=== PATIENT | female | born 1935 | race Caucasian/White ===

== ENCOUNTER 2020-08-03 09:04 | Emergency (ER) | payer MEDICARE, OTHER, SELFPAY ==
--- NOTE | ~2020-08-03 | XR_ITS ---
EXAMINATION: XR ribs LT 2V w CXR 2V INDICATION: Left rib pain after fall TECHNIQUE: AP and lateral views of the chest and 3 views of the left ribs were obtained. COMPARISON: 06/27/2016 FINDINGS: There are acute fractures at the anterolateral aspect of the left sixth through 10th ribs. The lungs are free of acute opacities. There is no pleural effusion or pneumothorax. Calcified athero sclerosis is noted. The heart size is normal. There is thoracolumbar dextroscoliosis. Cranial migrati on of the right humeral head with respect to the glenoid is consistent with chronic rotator cuff tear . There are compression deformities in the midthoracic spine which appear chronic. IMPRESSION: 1. Fractures of the left sixth through 10th ribs. No acute cardiopulmonary abnormality. Reviewed, dictated and finalized at location A. IMPRESSION: 1. Fractures of the left sixth through 10th ribs. No acute cardiopulmonary abno rmality.
[2020-08-03 09:03] VITALS: BP 206/88; PULSE 81; RESP 14; TEMP 37.1; O2SAT 97
[2020-08-03] MEDS: SODIUM CHLORIDE 0.9% IV 500 ML 999 ML IV CONT (10:50)
--- NOTE | 2020-08-03 11:19 | ED.GENADULT ---
HPI - General Adult General Chief complaint: Fall Stated complaint: L RIB/FLANK PAIN S/P FALL Time Seen by Provider: 08/03/20 09:52 Source: patient Mode of arrival: ambulatory Limitations: no limitations History of Present Illness HPI narrative: Patient is an 84-year-old female who presents to emergency department for evaluation of injuries related to having fallen and injured the left ribs was sitting on a bench and lost her balance striking the left ribs where she now has pain and bruising this occurred at midnight last night patient took Tylenol with some relief presents today noting that she has had increasing pain patient denies any other illness or complaints or injuries and is in no distress upon arrival patient lives at home by herself Related Data Home Medications Medication Instructions Recorded Confirmed aspirin 81 mg chewable tablet 81 mg PO DAILY 11/03/19 Allergies Allergy/AdvReac Type Severity Reaction Status Date / Time chlorthalidone Allergy Unknown Unknown Verified 05/11/20 11:06 hydrochlorothiazide Allergy Unknown Unknown Verified 05/11/20 11:06 triamterene Allergy Unknown Unknown Verified 05/11/20 11:06 No Known Allergies Allergy Unverified 05/11/20 11:06 Review of Systems Review of Systems: All systems reviewed & are unremarkable except as noted in HPI and below PMFSH Past Medical History Medical History Dysuria HSV-2 (herpes simplex virus 2) infection Vaginal irritation Surgical History Surgical History History of appendectomy History of cataract History of hysterectomy Status post knee replacement Family History Family History Mother Hypertension Cerebrovascular accident Family history of diabetes mellitus in first degree relative Patient's mother is Sibling Asthma Family history of malignant neoplasm Family history of diabetes mellitus in first degree relative Patient's brother is Family history of kidney disease Father Family history of diabetes mellitus in first degree relative Patient's father is Hypertension Family history of coronary artery disease Other Diabetes mellitus Family history of arthritis Social History Social History Smoking status: Former smoker Second hand tobacco smoke exposure: No Smoking end date: 10/21/12 Alcohol intake: never Substance use: never Substance use type: does not use Gender identity (if verbalized by the patient): Female Exam Narrative: Exam Narrative: GENERAL: Well-appearing, well-nourished, and in no acute distress. HEAD: Normocephalic, atraumatic. EYES: PERRLA and EOMI. ENT: Nares clear, no rhinorrhea or epistaxis. Mucous membranes moist. Oropharynx without tonsillar hypertrophy exudate or other lesions. NECK: Supple. No adenopathy or masses. CHEST: Clear to auscultation. No respiratory distress. No wheezes rales or rhonchi. 2 small bruises on the left lateral lower ribs with tenderness at this location HEART: Regular rate and rhythm. No murmur heard. Normal peripheral pulses. ABDOMEN: Soft, nontender, nondistended EXTREMITIES: Normal range of motion. No edema. No cervical thoracic or lumbar tenderness SKIN: Warm, dry, no rash. NEURO: No focal deficits. Alert and oriented x3. Cranial nerves II through XII grossly intact PSYCH: Normal mood and affect. Course Course Emergency Course: Patient in the room in no distress aware of his findings treatment plan and diagnosis agreeing to follow-up as directed felt appropriate for outpatient reevaluation normal vital signs was given incentive spirometer Vital Signs Vital signs: Vital Signs Temperature 98.8 F 08/03/20 09:03 Pulse Rate 81 08/03/20 09:03 Respiratory Rate 14 08/03/20 09:03 Blood P
--- NOTE | 2020-08-03 12:41 | PC.NURSE ---
RN spoke with RT and Incentive Spirometer teaching has been completed.
[2020-08-03 13:47] VITALS: BP 160/75; PULSE 74; RESP 18; O2SAT 98
== END 2020-08-03 13:49 | disposition home or self-care (01) ==
PROVIDERS: Emergency Provider Emergency Medicine; PCP Family Medicine
DX: S22.42XA Multiple fractures of ribs, left side, initial encounter for closed fracture (principal); Z87.891 Personal history of nicotine dependence; W17.89XA Other fall from one level to another, initial encounter; Z96.659 Presence of unspecified artificial knee joint; Z98.49 Cataract extraction status, unspecified eye
CPT/HCPCS: 71046; 71100; 99283; J0131; J7040

== ENCOUNTER 2021-07-01 16:39 | Emergency (ER) | payer MEDICARE, OTHER, SELFPAY ==
[2021-07-01 17:11] VITALS: BP 147/60; PULSE 67; RESP 16; TEMP 36.4; O2SAT 97
--- NOTE | 2021-07-01 18:00 | ED.WOUNDLAC ---
HPI - Wound/Laceration General Chief Complaint: Wound/Laceration Stated Complaint: redness left arm Time Seen by Provider: 07/01/21 18:00 Source: patient, family, RN notes reviewed and old records reviewed Mode of arrival: ambulatory Limitations: no limitations History of Present Illness HPI narrative: 85 year old female who presents to [facility] with complaints of redness to her anterior upper arm with tenderness and swelling and warmth which measures 8cm by9cm.Patient is concerned because she got a flu shot to her left deltoid area above area of erythema yesterday. Patient reports no known fevers, chills or sweats, has been applying ice to area for comfort measures. Patient has no difficulty with her swallowing or any shorteness of breath. Related Data Home Medications Medication Instructions Recorded Confirmed aspirin 81 mg chewable tablet 81 mg PO DAILY 11/03/19 11/02/20 isosorbide mononitrate 30 mg 15 mg PO DAILY tablet 08/04/20 11/02/20 tablet,extended release 24 hr diclofenac sodium [Voltaren TOPICAL 07/01/21 Arthritis Pain] Allergies Allergy/AdvReac Type Severity Reaction Status Date / Time No Known Allergies Allergy Unverified 05/01/21 11:20 Review of Systems Review of Systems: CONSTITUTIONAL: Denies fever, chills, or sweats. EYES: Denies visual changes, redness, or discharge. ENT: Denies rhinorrhea, congestion, sore throat, or otalgia. CARDIOVASCULAR: Denies chest pain, palpitations, or edema. RESPIRATORY: Denies cough or dyspnea. GASTROINTESTINAL: Denies abdominal pain, nausea, vomiting, or diarrhea. GENITOURINARY: Denies dysuria or hematuria. SKIN: positive for redness , swelling and discomfort to left upper arm [id number] area MUSCULOSKELETAL: Denies back pain, joint pain, or myalgia. NEUROLOGIC: Denies headache, numbness, or weakness. PSYCHIATRIC: Denies anxiety or depression. All systems reviewed & are unremarkable except as noted in HPI and below PMFSH Past Medical History Medical History (Updated 07/08/21 @ 07:29 by Courtney Logan NP) Chronic GERD Dysuria HLD (hyperlipidemia) HSV-2 (herpes simplex virus 2) infection Hypertensive heart disease without congestive heart failure Osteoporosis Vaginal irritation Surgical History Surgical History History of appendectomy History of cataract History of hysterectomy Status post knee replacement Family History Family History Mother Hypertension Cerebrovascular accident Family history of diabetes mellitus in first degree relative Patient's mother is Sibling Asthma Family history of malignant neoplasm Family history of diabetes mellitus in first degree relative Patient's brother is Family history of kidney disease Father Family history of diabetes mellitus in first degree relative Patient's father is Hypertension Family history of coronary artery disease Other Diabetes mellitus Family history of arthritis Social History Social History Smoking packs per day: 0.75 Smoking cigarettes per day: 15.0 Years smoked: 40 Smoking pack-years: 30.00 Smoking status: Never smoker Tobacco type: cigarettes Second hand tobacco smoke exposure: No Smoking end date: 10/21/12 Alcohol intake: never Substance use: never Substance use type: does not use Gender identity (if verbalized by the patient): Female Comments At time of signature, agree with nursing past medical, surgical, social and family history. There is no relevant family history pertinent to the presenting complaint Exam Narrative: GENERAL: Well-appearing, well-nourished, and in no acute distress. HEAD: Normocephalic, atraumatic. EYES: PERRLA and EOMI. ENT: Nares clear, no rhinorrhea or epistaxis. Mucous membranes moist.TM's normal with good light reflex, t
== END 2021-07-01 18:21 | disposition home or self-care (01) ==
PROVIDERS: Emergency Provider Registered Nurse; PCP Family Medicine
DX: L03.114 Cellulitis of left upper limb (principal); E78.5 Hyperlipidemia, unspecified; I11.0 Hypertensive heart disease with heart failure; I50.9 Heart failure, unspecified; I25.10 Atherosclerotic heart disease of native coronary artery without angina pectoris; F17.210 Nicotine dependence, cigarettes, uncomplicated
CPT/HCPCS: 99213; G0463

== ENCOUNTER 2022-04-03 09:15 | Emergency (ER) | payer MEDICARE, OTHER, SELFPAY ==
[2022-04-03] VITALS (13 sets, daily range): BP systolic 143–176; BP diastolic 57–77; PULSE 79; RESP 18; TEMP 36.2; O2SAT 95–98
--- NOTE | ~2022-04-03 | CT_ITS ---
EXAMINATION: CT brain wo con DATE: 04/03/2022 10:12 INDICATION: Head injury. TECHNIQUE: Computed tomography (CT) of the head was performed without intravenous contrast. The mA wa s adjusted according to patient size. Iterative reconstruction technique was employed. The dose-lengt h product was 605.33 mGy-cm. COMPARISON: None FINDINGS: There are scattered areas of low attenuation in the cerebral white matter. There is an old lacunar infarct in the right lentiform nucleus. There is no intracranial hemorrhage, acute infarction , or abnormal intracranial mass lesion. The ventricles are normal in size. There is an old blowout fr acture of medial wall of left orbit. There are likely changes of ocular lens replacement surgeries. T here is near complete opacification of left sphenoid sinus with thickening and sclerosis of the sinus suggs, consistent with chronic sinusitis. There is mild mucosal thickening in the other paranasal si nuses. There is a trace left mastoid effusion. IMPRESSION: 1. 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 2. Moderate nonspecific cerebral white matter disease, which likely represents chronic small vessel i schemic disease. 3. Chronic sinusitis. Reviewed, dictated and finalized at location B. IMPRESSION: 1. 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 2. Moderate nonspecific cerebral white matter disease, which likely represents chronic small vessel ischemic disease. 3. Chronic sinusitis.
--- NOTE | ~2022-04-03 | CT_ITS ---
EXAMINATION: CT cervical spine wo con DATE: 04/03/2022 10:13 INDICATION: Head injury. TECHNIQUE: Computed tomography (CT) of the cervical spine was performed without intravenous contrast. Automated exposure control and iterative reconstruction technique were employed. The dose-length pro duct was 151.69 mGy-cm. COMPARISON: None FINDINGS: There is 19 degrees dextroscoliosis of cervicothoracic spine. There is 3 mm anterolisthesis of C3 on C4 and C7 on T1. Vertebral body heights are normal. There is moderately decreased disc heig ht at C3-C4 and severely decreased disc height from C4-C5 through C6-C7. The following disc levels ar e specifically discussed: C2-C3: There is mild bilateral uncovertebral joint osteoarthritis. There is mild right and moderate l eft facet joint osteoarthritis. There is no neural foraminal stenosis. There is mild central canal st enosis. C3-C4: There is mild right and moderate left uncovertebral joint osteoarthritis. There is severe bila teral facet joint osteoarthritis. There is mild left neural foraminal stenosis. There is mild central canal stenosis. C4-C5: There is severe bilateral uncovertebral joint osteoarthritis. There is moderate right and mayra re left facet joint osteoarthritis. There is mild bilateral neural foraminal stenosis. There is mild central canal stenosis. C5-C6: There is severe bilateral uncovertebral joint osteoarthritis. There is moderate right and mayra re left facet joint osteoarthritis. There is mild bilateral neural foraminal stenosis. There is mild central canal stenosis. C6-C7: There is moderate right and severe left uncovertebral joint osteoarthritis. There is moderate right and severe left facet joint osteoarthritis. There is mild bilateral neural foraminal stenosis. There is mild central canal stenosis. C7-T1: There is no uncovertebral joint osteoarthritis. There is severe bilateral facet joint osteoart hritis. There is mild bilateral neural foraminal stenosis. There is no central canal stenosis. IMPRESSION: 1. No fracture. 2. Severe cervical spondylosis. Reviewed, dictated and finalized at location B.
--- NOTE | 2022-04-03 09:34 | PC.NURSE ---
EDP at bedside to assess pt.
--- NOTE | 2022-04-03 09:37 | ED.FALL ---
HPI - Fall General Chief Complaint: Fall Stated Complaint: fall Time Seen by Provider: 04/03/22 09:22 History of Present Illness HPI Narrative: Patient is an 86-year-old female with history of CAD, osteoporosis, here via EMS for evaluation after a fall this morning. Patient states that she was in her bathroom and attempted to step on a bug with her foot, when she missed, lost balance, and fell backwards. Patient did not lose consciousness, she was able to get up off the floor without assistance. She called an ambulance because she had large amount of blood on the floor. Her only complaint currently is some soreness to the back of her head, and she denies any chest pain, shortness of breath, dizziness, headache, visual changes, joint pain. She has been walking since the fall. She was in her usual state of health this morning. Related Data Home Medications Medication Instructions Recorded Confirmed aspirin 81 mg chewable tablet 81 mg PO DAILY 11/03/19 10/30/21 isosorbide mononitrate 30 mg 15 mg PO DAILY 08/04/20 10/30/21 tablet,extended release 24 hr diclofenac sodium 1 % topical gel topical 07/01/21 10/30/21 (Voltaren Arthritis Pain) Allergies Allergy/AdvReac Type Severity Reaction Status Date / Time No Known Allergies Allergy Unverified 04/03/22 09:35 Review of Systems Review of Systems: Gen.: Denies fevers or chills Eyes: Denies eye pain or visual change ENT: Denies congestion Respiratory: Denies shortness of breath or cough CV: Denies chest pain or palpitations GI: Denies abdominal pain nausea, emesis or diarrhea denies burning, urgency, frequency or hematuria Musculoskeletal: Denies back pain or muscle pain Neuro: Reports soreness to back of head. Denies numbness, tingling, weakness or focal weakness Skin: Reports abrasion Except as documented, all other systems reviewed and negative REPLACED BY [facility] Past Medical History Medical History Chronic GERD Dysuria HLD (hyperlipidemia) HSV-2 (herpes simplex virus 2) infection Hypertensive heart disease without congestive heart failure Osteoporosis Vaginal irritation Surgical History Surgical History History of appendectomy History of cataract History of hysterectomy Status post knee replacement Family History Family History Mother Hypertension Cerebrovascular accident Family history of diabetes mellitus in first degree relative Patient's mother is Sibling Asthma Family history of malignant neoplasm Family history of diabetes mellitus in first degree relative Patient's brother is Family history of kidney disease Father Family history of diabetes mellitus in first degree relative Patient's father is Hypertension Family history of coronary artery disease Other Diabetes mellitus Family history of arthritis Social History Social History Smoking packs per day: 0.75 Smoking cigarettes per day: 15.0 Years smoked: 40 Smoking pack-years: 30.00 Smoking status: Never smoker Tobacco type: cigarettes Second hand tobacco smoke exposure: No Smoking end date: 10/21/12 Alcohol intake: never Substance use: never Substance use type: does not use Gender identity (if verbalized by the patient): Female Exam Narrative: Gen: Alert, oriented, no acute distress Head: Contusion noted to posterior head, large amount of dried blood noted to scalp, no active bleeding. Neck: No midline tenderness to C-spine. Eyes: EOMI, no icterus Pulm: Respirations even and unlabored, symmetric thorax expansion, no audible stridor or visible cyanosis CV: Regular rate per telemetry GI: No distension, no voluntary/involuntary guarding MSK: No bony tenderness to bilateral hips Neuro: AOx4, moves all
[2022-04-03] MEDS: TETANUS,DIPHTHERIA,AC PERTUSSIS ADULT (0.5 ML) BOOSTRIX IM (09:53)
--- NOTE | 2022-04-03 10:08 | PC.NURSE ---
Patient off unit to CT.
[2022-04-03] MEDS: ACETAMINOPHEN 325 MG TABLET 650 MG PO (10:26)
== END 2022-04-03 11:53 | disposition home or self-care (01) ==
PROVIDERS: Emergency Provider Emergency Medicine; PCP Family Medicine
DX: S00.01XA Abrasion of scalp, initial encounter (principal); Z23 Encounter for immunization; I11.9 Hypertensive heart disease without heart failure; E78.5 Hyperlipidemia, unspecified; K21.9 Gastro-esophageal reflux disease without esophagitis; M81.0 Age-related osteoporosis without current pathological fracture; Z98.49 Cataract extraction status, unspecified eye; Z96.659 Presence of unspecified artificial knee joint; Z87.891 Personal history of nicotine dependence; W01.0XXA Fall on same level from slipping, tripping and stumbling without subsequent striking against object, initial encounter
CPT/HCPCS: 70450; 72125; 90471; 90715; 99284; A9270

== ENCOUNTER 2024-10-07 15:18 | Inpatient (IN) | payer MEDICARE, OTHER, SELFPAY ==
[2024-10-07] VITALS (19 sets, daily range): BP systolic 130–168; BP diastolic 54–106; PULSE 48–85; RESP 14–25; TEMP 36.2–37.1; O2SAT 92–99; BMI 24.7
--- NOTE | ~2024-10-07 | XR_ITS ---
EXAMINATION: XR hip LT 2V w AP pelvis DATE: 10/07/2024 16:39 INDICATION: Fall. TECHNIQUE: An anteroposterior view of the pelvis and 2 views of left hip were obtained. COMPARISON: None. FINDINGS: There is thoracolumbar dextroscoliosis and severe spondylosis. There is an intertrochanteri c fracture of proximal left femur. The distal fracture fragment demonstrates 25 degrees posterior ang ulation. There is moderate osteoarthritis of the hips. IMPRESSION: 1. Intertrochanteric fracture of proximal left femur. 2. Moderate osteoarthritis of the hips. Reviewed, dictated and finalized at location A. ING CONTRACTOR
--- NOTE | ~2024-10-07 | XR_ITS ---
EXAMINATION: XR chest 1V DATE: 10/07/2024 16:39 INDICATION: Fall. TECHNIQUE: A single frontal view of the chest was obtained. COMPARISON: Chest 2 views 08/03/2020 FINDINGS: There is no pneumonia, pleural effusion, or pneumothorax. The heart size is normal. IMPRESSION: 1. No acute cardiopulmonary disease. Reviewed, dictated and finalized at location A. ER BENCH
--- NOTE | ~2024-10-07 | XR_ITS ---
XR chest 1V portable Ordering provider: Tomeka Agosto MD History: 89 years Female with . sob . Comparison: October 07, 2024 FINDINGS: MEDIASTINUM: The cardiac silhouette is not enlarged. LUNGS: No infiltrates, effusions or pneumothorax. OTHER: No free air under the diaphragm. Degenerative the spine. Right shoulder osteoarthritic changes. IMPRESSION: No acute cardiopulmonary pathology. Reviewed, dictated and finalized at location A. GUARD
--- NOTE | ~2024-10-07 | XR_ITS ---
EXAMINATION: XR surgery orthopedic DATE: 10/09/2024 17:39 INDICATION: Left hip intertrochanteric nailing TECHNIQUE: 4 fluoroscopic images of the left hip and femur were obtained during procedure performed lam Corona. Radiologist was not present for the imaging or procedure. The amount of fluoroscopy ti me used during this procedure was 2.9 minutes. Total DAP was 7.39 mGycm^2 COMPARISON: 10/07/2024 FINDINGS: Interval reduction to essentially anatomic alignment of the intratrochanteric fracture of the proxima l left femur. The fracture is fixed with an antegrade intramedullary jessa with femoral neck dynamic co mpression screw and distal interlocking screw. No other fractures identified. IMPRESSION: 1. Near-anatomic alignment post internal fixation of an intratrochanteric fracture of the proximal le ft femur. See procedure note for further detail. Reviewed, dictated and finalized at location A. OMER CARE PROFESSIONAL IMPRESSION: 1. Near-anatomic alignment post internal fixation of an intratrochanteric fract ure of the proximal left femur. See procedure note for further detail.
[2024-10-07] MEDS: ONDANSETRON INJ 4 MG/2 ML VIAL IV PUSH (15:54)
[2024-10-07] MEDS: MORPHINE SULFATE (*CRX) 4 MG/ML INJ IV PUSH ×3 (15:54→23:33)
[2024-10-07 16:26] LABS: Basophils Absolute Auto 0.1 K/mm3 (0.0-0.1); Basophils Percent Auto 1.1 % (0.2-1.2); Eosinophils Absolute Auto 0.3 K/mm3 (0-0.3); Eosinophils Percent Auto 4.4 % (0-4.4); Hematocrit 44.3 % (37.0-47.0); Hemoglobin 14.7 g/dL (12.0-15.0); Immature Granulocyte Absolute 0.02 K/mm3 (0.00-0.031); Immature Granulocyte Percent A 0.3 % (0-0.5); Lymphocytes Absolute Auto 1.21 K/mm3 (0.9-3.2); Mean Corpuscular HGB Conc 33.2 g/dl (32-36); Mean Corpuscular Hemoglobin 31.6 pg (26-34); Mean Corpuscular Volume 95.3 fl (80-100); Mean Platelet Volume 9.3 fl (7.4-10.4); Monocytes Absolute Auto 0.9 K/mm3 (0.1-0.6); Monocytes Percent Auto 12.8 % (2.6-8.5); Neutrophils Absolute Auto 4.6 K/mm3 (1.3-6.7); Neutrophils Percent Auto 64.4 % (45.5-73.1); Platelet Count Result 283 k/mm3 (150-375); Red Blood Count 4.65 M/mm3 (4.2-5.4); Red Cell Distribution Width 13.2 % (11.5-14.5); White Blood Count 7.1 K/mm3 (4.5-10.0)
[2024-10-07 16:37] LABS: Alanine Aminotransferase 18 U/L (6-35); Albumin Level 4.3 g/dL (3.5-5.1); Alkaline Phosphatase 111 U/L (38-126); Anion Gap 3 mmol/L (4-12); Aspartate Amino Transferase 36 U/L (14-36); Bilirubin,Total 0.5 mg/dL (0.2-1.3); Blood Urea Nitrogen 18 mg/dL (7-17); Calcium 9.3 mg/dL (8.4-10.2); Carbon Dioxide 31 mmol/L (22-30); Chloride 103 mmol/L (98-107); Estimated CRCL calculation 33 ml/min; Estimated Glomerular Filt Rate > 60; Glucose 122 mg/dL (65-110); Potassium 3.9 mmol/L (3.4-5.0); Sodium 137 mmol/L (137-145)
[2024-10-07 16:40] LABS: INR 0.9; Prothrombin Time 12.6 Seconds (11.1-14.7)
--- NOTE | 2024-10-07 17:08 | ED_ITS ---
HPI - Extremity Injury (Lower) General Chief Complaint: Extremity Injury, Lower Stated Complaint: ankle deformity Time Seen by Provider: 10/07/24 15:24 Source: patient Mode of arrival: EMS Limitations: no limitations History of Present Illness HPI Narrative: 89-year-old with a history of hypertension, CAD status post stent, knee replacement here with the complaints of left hip pain. Patient states that she lost balance and fell on her left hip. She denies any headache neck injuries. She states that she is unable to bear weight. She endorses Dr. Mayo as orthopedic doctor and she prefers to see him MD complaint: hip injury Injury: Left: hip Type of Injury: other (fall) Place: home Severity: severe Relieving factors: immobilization Exacerbating factors: weight bearing Context: fall Other symptoms: none Related Data Home Medications ?Medication ?Instructions ?Recorded ?Confirmed ?Last Taken ?Type aspirin 81 mg chewable tablet 81 mg PO DAILY 11/03/19 12/02/23 Unknown History isosorbide mononitrate 30 mg 15 mg PO DAILY 08/04/20 12/02/23 Unknown History tablet,extended release 24 hr diclofenac sodium 1 % topical gel topical 07/01/21 12/02/23 Unknown History (Voltaren Arthritis Pain) Allergies Allergy/AdvReac Type Severity Reaction Status Date / Time No Known Allergies Allergy Verified 10/07/24 15:24 Review of Systems 2 Review of Systems: All systems reviewed & are unremarkable except as noted in HPI and below Constitutional: Constitutional: Reports no additional constitutional complaints Eyes: Eyes: Reports no additional eye complaints ENT: Reports system reviewed and no additional complaints, except as documented Cardiovascular: Cardiovascular: Reports no additional cardiovascular complaints Respiratory: Respiratory: Reports no additional respiratory complaints Gastrointestinal: Gastrointestinal: Reports no additional gastrointestinal complaints Musculoskeletal: Musculoskeletal: Reports as per HPI Neurologic: Reports system reviewed and no additional complaints, except as documented PMF Past Medical History Medical History HSV-2 (herpes simplex virus 2) infection Dysuria Vaginal irritation Osteoporosis Chronic GERD HLD (hyperlipidemia) Hypertensive heart disease without congestive heart failure Surgical History Surgical History Status post knee replacement History of cataract History of hysterectomy History of appendectomy Family History Family History Mother Hypertension Cerebrovascular accident Family history of diabetes mellitus in first degree relative Patient's mother is Sibling Asthma Family history of malignant neoplasm Family history of diabetes mellitus in first degree relative Patient's brother is Family history of kidney disease Father Family history of diabetes mellitus in first degree relative Patient's father is Hypertension Family history of coronary artery disease Other Diabetes mellitus Family history of arthritis Social History Social History Smoking packs per day: 0.75 Smoking cigarettes per day: 15.0 Years smoked: 40 Smoking pack-years: 30.00 Smoking status: Former smoker Tobacco type: cigarettes Second hand tobacco smoke exposure: No Smoking end date: 10/21/12 Alcohol intake: never Substance use: never Substance use type: does not use [place] Occupation/Education: retired Gender identity (if verbalized by the patient): Female Exam 2 Narrative: GENERAL: Well-appearing, well-nourished, and in no acute distress. HEAD: Normocephalic, atraumatic. EYES: PERRLA and EOMI. ENT: Nares clear, no rhinorrhea or epistaxis. Mucous membranes moist. NECK: Supple. CHEST: Clear to auscultation. No respiratory distress. HEART: Regular rate and rhythm. No murmur heard. Normal peripheral pulses. ABDOMEN: Soft, nontender, nondistended, normal active bowel sounds. EXTREMITIES: Normal range of motion. Marked tenderness in the left hip SKIN: Warm, dry, no rash. NEURO: No focal deficits. Alert and oriented x3. PSYCH: Normal mood and affect. Course Course Emergency Course: Pain has much improved with IV morphine. Informed patient and her son who is at bedside about the lab work and x-ray findings. I discussed with Dr. Corona will consult. Discussed with Hospitalist will accept. Vital Signs Vital signs: Vital Signs Temperature 37.1 C 10/07/24 15:22 Pulse Rate 85 10/07/24 15:22 Respiratory Rate 18 10/07/24 15:22 Blood Pressure 130/106 H 10/07/24 15:22 Pulse Oximetry 97 10/07/24 15:22 Temperature 37.1 C 10/07/24 15:22 Pulse Rate 85 10/07/24 15:22 Respiratory Rate 18 10/07/24 15:22 Blood Pressure 130/106 H 10/07/24 15:22 Pulse Oximetry 97 10/07/24 15:22 MDM - Extremity Injury (Lower) Differential Diagnosis Differential diagnosis: Likely fracture of femur and fracture of hip Medical Records Attestation: I reviewed the patient's medical records. Lab Data Attestation: I reviewed the patient's lab results. 10/07/24 16:14 10/07/24 16:14 Labs: Lab Results 10/07/24 Range/Units 16:14 WBC 7.1 (4.5-10.0) K/mm3 RBC 4.65 (4.2-5.4) M/mm3 Hgb 14.7 (12.0-15.0) g/dL Hct 44.3 (37.0-47.0) % MCV 95.3 (80-100) fl MCH 31.6 (26-34) pg MCHC 33.2 (32-36) g/dl RDW 13.2 (11.5-14.5) % Plt Count 283 (150-375) k/mm3 MPV 9.3 (7.4-10.4) fl Immature Gran % (Auto) 0.3 (0-0.5) % Neut % (Auto) 64.4 (45.5-73.1) % Lymph % (Auto) 17.0 L (18.3-44.2) % [place] % (Auto) 12.8 H (2.6-8.5) % Eos % (Auto) 4.4 (0-4.4) % Baso % (Auto) 1.1 (0.2-1.2) % Lymph # (Auto) 1.21 (0.9-3.2) K/mm3 [place] # (Auto) 0.9 H (0.1-0.6) K/mm3 Eos # (Auto) 0.3 (0-0.3) K/mm3 Baso # (Auto) 0.1 (0.0-0.1) K/mm3 Abs Immat Gran (auto) 0.02 (0.00-0.031) K/mm3 Absolute Neuts (auto) 4.6 (1.3-6.7) K/mm3 Absolute Nucleated RBC 0.000 (0.0-0.012) K/mm3 Nucleated RBC % 0.0 (0.0-0.2) % PT 12.6 (11.1-14.7) Seconds INR 0.9 Sodium 137 (137-145) mmol/L Potassium 3.9 (3.4-5.0) mmol/L Chloride 103 (98-107) mmol/L Carbon Dioxide 31 H (22-30) mmol/L Anion Gap 3 L (4-12) mmol/L BUN 18 H (7-17) mg/dL Creatinine 0.80 (0.7-1.0) mg/dL Estim Creat Clear Calc 33 ml/min Estimated GFR > 60 (59 - ) Glucose 122 H (65-110) mg/dL Calcium 9.3 (8.4-10.2) mg/dL Total Bilirubin 0.5 (0.2-1.3) mg/dL AST 36 (14-36) U/L ALT 18 (6-35) U/L Alkaline Phosphatase 111 (38-126) U/L Total Protein 7.0 (6.3-8.2) g/dL Albumin 4.3 (3.5-5.1) g/dL Imaging Data Radiologist's impression: ITS Impressions Chest X-Ray 10/07/24 16:41 IMPRESSION: 1. No acute cardiopulmonary disease. Hip/Pelvis X-Ray 10/07/24 16:46 IMPRESSION: 1. Intertrochanteric fracture of proximal left femur. 2. Moderate osteoarthritis of the hips. ECG Data EKG #1: ECG completion date: 10/07/24 ECG completion time: 17:41 EKG Interpretation: normal rate (71), sinus rhythm, no ST changes, normal QRS and normal QT Discharge Plan Discharge Clinical Impression: Closed hip fracture Qualifiers: Encounter type: initial encounter Laterality: left Qualified Code(s): S72.002A - Fracture of unspecified part of neck of left femur, initial encounter for closed fracture Patient Language: Upper Sorbian Prescriptions: No Action diclofenac sodium [Voltaren Arthritis Pain] 1 % Gel TOPICAL isosorbide mononitrate 30 mg tablet extended release 24 hr 15 mg PO DAILY rosuvastatin 5 mg tablet 5 mg PO DAILY Qty: 30 0RF acetaminophen [Tylenol Arthritis Pain] 650 mg tablet extended release 650 mg PO Q8H PRN (Reason: pain) Qty: 10 0RF lidocaine 5 % adhesive patch,medicated 1 patch topical DAILY Qty: 1 0RF Rx Instructions: leave on most painful area for up to 12 hrs aspirin 81 mg tablet,chewable 81 mg PO DAILY albuterol sulfate 90 mcg/actuation HFA aerosol inhaler 1 inh inhalation Q4H PRN (Reason: shortness of breath or wheezing) Qty: 8.5 0RF fluconazole [Diflucan] 150 mg tablet 150 mg PO ONCE Qty: 2 0RF Rx Instructions: as a single dose; Repeat in 3 days valacyclovir [Valtrex] 500 mg tablet 500 mg PO Q12H PRN (Reason: outbreak) 3 Days Qty: 24 1RF ergocalciferol (vitamin D2) 1,250 mcg (50,000 unit) capsule See Rx Instructions .ROUTE .COMPLEX Qty: 3 2RF Dose Instruction: TAKE 1 CAPSULE BY MOUTH ONCE MONTHLY Rx Instructions: TAKE 1 CAPSULE BY MOUTH ONCE MONTHLY omeprazole 20 mg capsule,delayed release(DR/EC) 20 mg PO DAILY Qty: 90 2RF Rx Instructions: BEFORE A MEAL diltiazem HCl 120 mg capsule,extended release 24hr See Rx Instructions .ROUTE .COMPLEX Qty: 90 0RF Dose Instruction: TAKE 1 CAPSULE BY MOUTH EVERY DAY Rx Instructions: TAKE 1 CAPSULE BY MOUTH EVERY DAY valsartan 40 mg tablet 40 mg PO DAILY Qty: 90 0RF Follow-up/Referrals: Jose Luis Rod MD [Primary Care Provider] -
--- NOTE | 2024-10-07 17:32 | ECG_ITS ---
Test Date: 2024-10-07 17:41:57 Measurements Intervals [place] Rate: 71 P: 84 LA: 184 QRS: 45 QRSD: 73 T: 48 QT: 351 QTc: 382 Interpretive Statements SINUS RHYTHM No previous ECG available for comparison Electronically Signed On 10-08-2024 15:51:30 MANAGER ONLINE by Kody Zeng M.D.
[2024-10-07] MEDS: SODIUM CHLORIDE 0.9% IV 1,000 ML 100 ML IV CONT (20:13)
[2024-10-07] MEDS: HYDROcodone/acetaminophen (*CRX) 5-325 MG TABLET 1 TAB PO (20:40)
--- NOTE | 2024-10-07 21:51 | PM.IMHP ---
H&P: HPI History of Present Illness Date/Time: 10/07/24 23:55 Chief Complaint: Fell while getting out of the car, left hip pain Narrative: 89-year-old female with a past medical history of coronary disease status post angioplasty in the , essential hypertension, hyperlipidemia, asthma, esophageal stricture, GERD and osteoporosis who presented to the ER via EMS after having a fall resulting in hip fracture. The patient reports that she was out getting her hair done with some friends. When she went to stand up and get out of the car as she got her weight onto her leg her leg gave out and she landed on her left hip. She does note that she has been having some discomfort in her left groin on and off for a few weeks. She felt as if that leg was a little bit weaker. She is suspicious that her hip may have fractured resulting in the fall. She denies having any true loss of balance today. Although she does have a history of chronic gait instability and episodes of vertigo which she did not have any symptoms of this today. She reports that she had otherwise been feeling well. She has not been having any increased urinary symptoms from baseline. She has been having 2-3 normally formed bowel movements a day which is her normal. She denies any chest pain or shortness of breath. She has not had any cough or congestion. She reports that her pain is severe with any movement of any broader area of her body. The pain is in the left groin. Her left leg is shortened and externally rotated. She reports that she occasionally feels as if she has incomplete bladder emptying and will often have to shift her weight around to complete emptying her bladder. Thus she is having more pain in her hip because she is trying to relieve some bladder fullness. Source of information is review of past medical records and patient report. The patient is an extremely good historian Review of Systems Review of Systems: 12 systems were reviewed with pertinent positives and negatives per HPI. Except as documented in the HPI, all other systems were reviewed and are negative. [facility] Past Medical History Medical History (Updated 10/07/24 @ 22:03 by Vannessa Downing DO) Atherosclerotic heart disease of [place] coronary artery without angina pectoris Lumbar radiculopathy Mixed conductive and sensorineural hearing loss of both ears With bilateral hearing aids Vertigo Vitamin D deficiency Asthma Essential hypertension Esophageal stricture HSV-2 (herpes simplex virus 2) infection Osteoporosis Chronic GERD HLD (hyperlipidemia) Hypertensive heart disease without congestive heart failure Surgical History Surgical History (Updated 10/08/24 @ 07:38 by Vannessa Downing DO) History of meniscectomy of left knee (02/2013) Performed by Dr. Charles Corona History of total right knee replacement History of tonsillectomy History of coronary angioplasty (~1987) [facility] Status post cataract extraction of both eyes with insertion of intraocular lens (~2010) History of hysterectomy History of appendectomy Family History Family History Mother Hypertension Cerebrovascular accident Family history of diabetes mellitus in first degree relative Patient's mother is Sibling Asthma Family history of malignant neoplasm Family history of diabetes mellitus in first degree relative Patient's brother is Family history of kidney disease Father Family history of diabetes mellitus in first degree relative Patient's father is Hypertension Family history of coronary artery disease Other Diabetes mellitus Family history of arthritis Social History Social History (Updated 10/08/24 @ 07:44 by Vannessa Downing DO) Social History: Patient lives with her of over 50 years. She ambulates with a cane. She is a former smoker and smoked up to 1 pack cigarettes per day but quit in 1999. She smoked about a pack per day for 40-45 years. She denies any history of alcohol use or illicit substance use. Code status: She states that she does not believe she would want CPR but she does have an advanced directive in place. She will defer decision to her . Surrogate decision maker: Curtis () Smoking packs per day: 1 Smoking cigarettes per day: 20.0 Years smoked: 40 Smoking pack-years: 40.00 Smoking status: Former smoker Tobacco type: cigarettes Second hand tobacco smoke exposure: No Smoking end date: 10/21/99 Alcohol intake: never Substance use: never Substance use type: does not use Do You Feel Safe in your Home?: Yes Lack of Transportation: No Lack of Food: Never True Current Housing: I Have Housing Concerned About Future Housing: No Difficulty Paying Gas/Electric Bills: No Difficulty Paying for Meds: No Currently Unemployed: No Education: High School Diploma/GED Difficulty w/ Childcare or Family Care: No Living arrangements[place] Occupation/Education: retired Gender identity (if verbalized by the patient): Female Spiritual care concerns: No Meds Home Medications and Allergies Home Medications ?Medication ?Instructions ?Recorded ?Confirmed ?Type aspirin 81 mg chewable tablet 81 mg PO DAILY 11/03/19 10/07/24 History acetaminophen 650 mg 650 mg PO Q8H PRN pain #10 tabs 08/03/20 10/07/24 Rx tablet,extended release (Tylenol Arthritis Pain) isosorbide mononitrate 30 mg 15 mg PO DAILY 08/04/20 10/07/24 History tablet,extended release 24 hr diclofenac sodium 1 % topical gel 2 g topical BID PRN back pain 07/01/21 10/07/24 History (Voltaren Arthritis Pain) valacyclovir 500 mg tablet 500 mg PO Q12H PRN outbreak 3 days 12/14/22 10/07/24 Rx (Valtrex) #24 tabs rosuvastatin 5 mg tablet 5 mg PO DAILY #30 tabs 12/02/23 10/07/24 Rx ergocalciferol (vitamin D2) 1,250 See Rx Instructions .Route 03/22/24 10/07/24 Rx mcg (50,000 unit) capsule .COMPLEX #3 caps omeprazole 20 mg capsule,delayed 20 mg PO DAILY #90 caps 06/08/24 10/07/24 Rx release valsartan 40 mg tablet 40 mg PO DAILY #90 tabs 08/29/24 10/07/24 Rx diltiazem HCl 120 mg 120 mg PO Q24H 10/07/24 10/07/24 History capsule,extended release 24 hr Allergies Allergy/AdvReac Type Severity Reaction Status Date / Time No Known Allergies Allergy Verified 10/07/24 15:24 Vital Signs Vital Signs - 24 hr 10/07/24 15:22 10/07/24 15:30 10/07/24 15:31 Temperature 98.7 F Pulse Rate 85 83 72 Respiratory Rate 18 16 17 Blood Pressure 130/106 H 140/72 Pulse Oximetry 97 96 99 10/07/24 15:57 10/07/24 16:11 10/07/24 16:15 Temperature Pulse Rate 81 74 78 Respiratory Rate 18 20 14 Blood Pressure Pulse Oximetry 97 97 97 10/07/24 16:40 10/07/24 17:04 10/07/24 17:15 Temperature Pulse Rate 83 83 48 L Respiratory Rate 25 H 22 H 18 Blood Pressure Pulse Oximetry 94 93 96 10/07/24 17:30 10/07/24 17:32 10/07/24 17:45 Temperature Pulse Rate 80 81 80 Respiratory Rate 17 19 14 Blood Pressure 168/76 H Pulse Oximetry 95 95 95 10/07/24 18:01 10/07/24 18:02 10/07/24 18:15 Temperature Pulse Rate 79 81 84 Respiratory Rate 18 19 15 Blood Pressure 161/67 H Pulse Oximetry 92 92 95 10/07/24 18:30 10/07/24 18:31 10/07/24 21:14 Temperature 97.2 F L Pulse Rate 84 81 71 Respiratory Rate 22 H 21 H 16 Blood Pressure 139/54 L 151/61 H Pulse Oximetry 98 93 10/07/24 21:16 Temperature 97.2 F L Pulse Rate 71 Respiratory Rate 16 Blood Pressure 151/61 H Pulse Oximetry 93 Exam Narrative: Weight 61 kg BMI 24.6 Const: Other: Well-developed, well-nourished, height weight proportionate, well groomed, no acute distress HENMT: Other: Head is normocephalic atraumatic, mucous membranes are tacky, upper dentures in place, patient reports her lower dentition is her natural teeth appear to be in fair condition Eyes: Other: Pupils are equal and reactive with evidence of bilateral lens implants, no conjunctival pallor, no scleral scleral icterus Neck: Other: No JVD, no lymphadenopathy Resp: Other: Clear to auscultation bilaterally, no increased work of breathing Cardio: Other: Regular rate, regular rhythm, 2+ bilateral radial pedal pulses GI: Other: Soft, nontender, nondistended, positive bowel sounds : Other: Pure wick catheter in place Skin: Other: No scleral icterus, no conjunctival pallor Neuro: Other: The patient is alert orient x4, speech is clear, hard of hearing, no localizing neurologic deficits noted during the course of conversation Extrem: Other: Left leg is externally rotated the hip in shortened, distal extremity is neurovascularly intact Psych: Other: Appropriate mood and affect, pleasant and cooperative, judgment and insight intact H&P: Results Labs Labs: Laboratory Tests 10/07/24 16:14 10/07/24 16:14 10/07/24 16:14 WBC 7.1 RBC 4.65 Hgb 14.7 Hct 44.3 MCV 95.3 MCH 31.6 MCHC 33.2 RDW 13.2 Plt Count 283 MPV 9.3 Immature Gran % (Auto) 0.3 Neut % (Auto) 64.4 Lymph % (Auto) 17.0 L [place] % (Auto) 12.8 H Eos % (Auto) 4.4 Baso % (Auto) 1.1 Lymph # (Auto) 1.21 [place] # (Auto) 0.9 H Eos # (Auto) 0.3 Baso # (Auto) 0.1 Abs Immat Gran (auto) 0.02 Absolute Neuts (auto) 4.6 Absolute Nucleated RBC 0.000 Nucleated RBC % 0.0 PT 12.6 INR 0.9 Sodium 137 Potassium 3.9 Chloride 103 Carbon Dioxide 31 H Anion Gap 3 L BUN 18 H Creatinine 0.80 Estim Creat Clear Calc 33 Estimated GFR > 60 Glucose 122 H Calcium 9.3 Total Bilirubin 0.5 AST 36 ALT 18 Alkaline Phosphatase 111 Total Protein 7.0 Albumin 4.3 Impressions Chest X-Ray 10/07/24 16:41 (patient has marked scoliosis memory rotation noted on x-ray) IMPRESSION: 1. No acute cardiopulmonary disease. Hip/Pelvis X-Ray 10/07/24 16:46 IMPRESSION: 1. Intertrochanteric fracture of proximal left femur. 2. Moderate osteoarthritis of the hips. EKG: Personally reviewed interpreted demonstrated normal sinus rhythm with normal intervals. Cardiology interpretation pending peer All imaging and EKGs personally reviewed and interpreted. And unless stated otherwise agree with radiologic and cardiology interpretation. Assessment and Plan Assessment and plan (1) Closed hip fracture: Qualifiers: Encounter type: initial encounter Laterality: left Qualified Code(s): S72.002A - Fracture of unspecified part of neck of left femur, initial encounter for closed fracture Code(s): S72.009A - Fracture of unspecified part of neck of unspecified femur, initial encounter for closed fracture Status: Acute (2) Atherosclerotic heart disease of [place] coronary artery without angina pectoris: Qualifiers: [place] vs. transplanted heart: [place] heart Qualified Code(s): I25.10 - Atherosclerotic heart disease of [place] coronary artery without angina pectoris Code(s): I25.10 - Atherosclerotic heart disease of [place] coronary artery without angina pectoris Status: Acute (3) Essential hypertension: Code(s): I10 - Essential (primary) hypertension Status: Acute Plan Patient has acute left intratrochanteric fracture due to ground level fall. This is complicated by the patient's underlying history of osteoporosis. Orthopedic surgery has been consulted. Patient is nonweightbearing until evaluated by surgery. Pain medications have been ordered with [place] and morphine as needed. Patient does have history of coronary artery disease and essential hypertension but she is symptomatic without evidence of acute ischemia or chest pain. Will continue patient's home antihypertensives and 81 mg aspirin. Patient is hemodynamically stable and at baseline. Patient would benefit from both calcium and vitamin-D supplementation as outpatient. She does take vitamin-D weekly but may benefit from some daily supplement as well. Quality VTE Prophylaxis VTE prophylaxis: pharmacologic ordered (Lovenox 40 mg subq daily to be started postop) Hospitalist MIPS Advance Care Plan I have confirmed that the patient's Advanced Care Plan is present, code status is documented, or surrogate decision maker is listed in patient medical record.: Yes Medication Reconciliation I have utilized all available resources to obtain, update and review the patients current medications (includes all prescriptions, OTC, herbals, cannabis, and nutritional supplements).: Yes
[2024-10-07] MEDS: dilTIAZem HCL CD 120 MG CAP.24HR PO (22:51)
[2024-10-08] VITALS: BP 143/72; PULSE 70; RESP 16; TEMP 36.3; O2SAT 94
[2024-10-08] MEDS: MORPHINE SULFATE (*CRX) 4 MG/ML INJ IV PUSH ×4 (05:37→23:44)
[2024-10-08 05:57] VITALS: BP 138/56; PULSE 82; RESP 18; TEMP 36.2; O2SAT 93
[2024-10-08] MEDS: SODIUM CHLORIDE 0.9% IV 1,000 ML 100 ML IV CONT ×2 (06:30→16:49)
[2024-10-08] MEDS: VALSARTAN 40 MG TABLET PO (08:35)
[2024-10-08] MEDS: ASPIRIN 81 MG CHEWABLE TABLET PO (08:35)
[2024-10-08] MEDS: ONDANSETRON INJ 4 MG/2 ML VIAL IV PUSH (08:35)
[2024-10-08] MEDS: PANTOPRAZOLE 40 MG TABLET PO (08:35)
[2024-10-08] MEDS: ISOSORBIDE MONONITRATE 15 MG TAB.ER.24H PO (08:35)
[2024-10-08] MEDS: ROSUVASTATIN 5 MG TABLET PO (08:35)
--- NOTE | 2024-10-08 08:44 | P.PNIM_ITS ---
Progress Note: A&P Assessment and Plan (1) Atherosclerotic heart disease of [place] coronary artery without angina pectoris: Qualifiers: [place] vs. transplanted heart: [place] heart Qualified Code(s): I25.10 - Atherosclerotic heart disease of [place] coronary artery without angina pectoris Code(s): I25.10 - Atherosclerotic heart disease of [place] coronary artery without angina pectoris Status: Acute (2) Essential hypertension: Code(s): I10 - Essential (primary) hypertension Status: Acute (3) Closed hip fracture: Qualifiers: Encounter type: initial encounter Laterality: left Qualified Code(s): S72.002A - Fracture of unspecified part of neck of left femur, initial encounter for closed fracture Code(s): S72.009A - Fracture of unspecified part of neck of unspecified femur, initial encounter for closed fracture Status: Acute Plan 89-year-old female with a past medical history of coronary disease status post angioplasty in the , essential hypertension, hyperlipidemia, asthma, esophageal stricture, GERD and osteoporosis who presented to the ER via EMS after having a fall resulting in hip fracture. (1) Closed hip fracture: Qualifiers: Encounter type: initial encounter Laterality: left Qualified Code(s): S72.002A - Fracture of unspecified part of neck of left femur, initial encounter for closed fracture Code(s): S72.009A - Fracture of unspecified part of neck of unspecified femur, initial encounter for closed fracture Status: Acute (2) Atherosclerotic heart disease of [place] coronary artery without angina pectoris: Qualifiers: [place] vs. transplanted heart: [place] heart Qualified Code(s): I25.10 - Atherosclerotic heart disease of [place] coronary artery without angina pectoris Code(s): I25.10 - Atherosclerotic heart disease of [place] coronary artery without angina pectoris Status: Acute (3) Essential hypertension: Code(s): I10 - Essential (primary) hypertension Status: Acute Hip fracture status post fall Patient has acute left intratrochanteric fracture due to ground level fall. history of osteoporosis. Orthopedic surgery has been consulted. P atient is nonweightbearing until evaluated by surgery. P ain medications have been ordered with [place] and morphine as needed. Plan surgical treatment a.m. tomorrow coronary artery disease Status post stent x1 Patient denies chest pain Continue home medication aspirin 81 mg daily p.o. And essential hypertension b continue patient's home antihypertensives and 81 mg aspirin. Osteoporosis Patient would benefit from both calcium and vitamin-D supplementation as outpatient. She does take vitamin-D weekly but may benefit from some daily supplement as well. Subjective Date/time seen: 10/08/24 08:44 Interval history: I saw exam patient today, patient still has left hip pain, patient feeling nauseous are taking pain p.o.. Patient denies chest pain shortness breath, palpitation. Patient is afebrile, blood pressure stable labs reviewed Exam Narrative: GENERAL: Pleasant, in no acute distress. Well-nourished. - EYES: EOMI. Anicteric. - HENT: Moist mucous membranes. - LUNGS: Clear to auscultation bilateral ly, no wheezing, rhonchi, or rales. - CARDIOVASCULAR: Regular rate and rhyth m. No murmur. No JVD. - ABDOMEN: Soft, non-tender and non-dist ended. No palpable masses. - EXTREMITIES: No edema. Peripheral puls es 2+. Non-tender. Range of movement of left hip is restricted because of pain - NEUROLOGIC: No focal neurological defi cits. CN II-XII grossly intact. - PSYCHIATRIC: Awake, Alert and oriented x 3. Appropriate mood and affect. - SKIN: No rashes or lesions. Warm. - LYMPH: No cervical lymphadenopathy. Objective Data Vital Signs Vital Signs: Vital Signs - 24 hr 10/07/24 15:22 10/07/24 15:30 10/07/24 15:31 Temperature 98.7 F Pulse Rate 85 83 72 Respiratory Rate 18 16 17 Blood Pressure 130/106 H 140/72 Pulse Oximetry 97 96 99 Oxygen Delivery 10/07/24 15:57 10/07/24 16:11 10/07/24 16:15 Temperature Pulse Rate 81 74 78 Respiratory Rate 18 20 14 Blood Pressure Pulse Oximetry 97 97 97 Oxygen Delivery 10/07/24 16:40 10/07/24 17:04 10/07/24 17:15 Temperature Pulse Rate 83 83 48 L Respiratory Rate 25 H 22 H 18 Blood Pressure Pulse Oximetry 94 93 96 Oxygen Delivery 10/07/24 17:30 10/07/24 17:32 10/07/24 17:45 Temperature Pulse Rate 80 81 80 Respiratory Rate 17 19 14 Blood Pressure 168/76 H Pulse Oximetry 95 95 95 Oxygen Delivery 10/07/24 18:01 10/07/24 18:02 10/07/24 18:15 Temperature Pulse Rate 79 81 84 Respiratory Rate 18 19 15 Blood Pressure 161/67 H Pulse Oximetry 92 92 95 Oxygen Delivery 10/07/24 18:30 10/07/24 18:31 10/07/24 20:00 Temperature Pulse Rate 84 81 Respiratory Rate 22 H 21 H Blood Pressure 139/54 L Pulse Oximetry 98 Oxygen Delivery Room Air 10/07/24 21:14 10/07/24 21:16 10/08/24 00:00 Temperature 97.2 F L 97.2 F L 97.3 F L Pulse Rate 71 71 70 Respiratory Rate 16 16 16 Blood Pressure 151/61 H 151/61 H 143/72 H Pulse Oximetry 93 93 94 Oxygen Delivery 10/08/24 05:57 Temperature 97.1 F L Pulse Rate 82 Respiratory Rate 18 Blood Pressure 138/56 L Pulse Oximetry 93 Oxygen Delivery Intake/Output Intake/Output: Intake & Output 10/05/24 10/06/24 10/07/24 10/08/24 23:59 23:59 23:59 23:59 Intake Total 1000 Output Total 800 Balance 200 Meds/Results Medications: Active Medications Generic Name Dose Route Start Last Admin Trade Name Freq PRN Reason Stop Dose Admin Acetaminophen 650 mg 10/07/24 17:34 Acetaminophen 325 Mg Tablet PO Q4H PRN Mild Pain (1-3) or Fever Hydrocodone Bitart/Acetaminophen 1 tab 10/07/24 17:31 10/07/24 20:40 Hydrocodone/Acetaminophen (*Crx) 5-325 Mg Tablet PO 1 tab Q6H PRN Administration Pain Rated 4-6 Aspirin 81 mg 10/08/24 09:00 10/08/24 08:35 Aspirin 81 Mg Chewable Tablet PO 81 mg DAILY VERONIQUE Administration Diclofenac Sodium 0 applic 10/07/24 21:36 Diclofenac Sodium 1% 100 Gm Gel (*Bkc) TOPICAL BID PRN back pain Diltiazem HCl 120 mg 10/07/24 22:15 10/07/24 22:51 Diltiazem Hcl Cd 120 Mg Cap.24hr PO 120 mg HS VERONIQUE Administration Docusate Sodium 100 mg 10/07/24 17:31 Docusate Sodium 100 Mg Capsule PO Q12H PRN Constipation Enoxaparin Sodium 40 mg 10/09/24 09:00 Enoxaparin 40 Mg/0.4 Ml Syringe SUB-Q DAILY VERONIQUE Sodium Chloride 1,000 mls @ 100 mls/hr 10/07/24 17:35 10/08/24 06:30 Normal Saline Iv IV CONT 100 mls/hr .Q10H VERONIQUE Administration Isosorbide Mononitrate 15 mg 10/08/24 09:00 10/08/24 08:35 Isosorbide Mononitrate 15 Mg Tab.Er.24h PO 15 mg DAILY VERONIQUE Administration Morphine Sulfate 4 mg 10/07/24 17:34 10/08/24 08:35 Morphine Sulfate (*Crx) 4 Mg/Ml Inj IV PUSH 4 mg Q2H PRN Administration Pain Rated 7-10 Naloxone HCl 0.1 mg 10/07/24 17:31 Naloxone Hcl 0.4 Mg/Ml Vial IV PUSH Q5MIN PRN Sedation Ondansetron HCl 4 mg 10/07/24 17:34 10/08/24 08:35 Ondansetron Inj 4 Mg/2 Ml Vial IV PUSH 4 mg Q4H PRN Administration Nausea Pantoprazole Sodium 40 mg 10/08/24 09:00 10/08/24 08:35 Pantoprazole 40 Mg Tablet PO 40 mg QAM VERONIQUE Administration Rosuvastatin Calcium 5 mg 10/08/24 09:00 10/08/24 08:35 Rosuvastatin 5 Mg Tablet PO 5 mg DAILY VERONIQUE Administration Valsartan 40 mg 10/08/24 09:00 10/08/24 08:35 Valsartan 40 Mg Tablet PO 40 mg DAILY VERONIQUE Administration Radiology Results: ITS Impressions Chest X-Ray 10/07/24 16:41 IMPRESSION: 1. No acute cardiopulmonary disease. Hip/Pelvis X-Ray 10/07/24 16:46 IMPRESSION: 1. Intertrochanteric fracture of proximal left femur. 2. Moderate osteoarthritis of the hips. Labs Labs: Laboratory Results - last 24 hr 10/07/24 16:14 WBC 7.1 RBC 4.65 Hgb 14.7 Hct 44.3 MCV 95.3 MCH 31.6 MCHC 33.2 RDW 13.2 Plt Count 283 MPV 9.3 Immature Gran % (Auto) 0.3 Neut % (Auto) 64.4 Lymph % (Auto) 17.0 L [place] % (Auto) 12.8 H Eos % (Auto) 4.4 Baso % (Auto) 1.1 Lymph # (Auto) 1.21 [place] # (Auto) 0.9 H Eos # (Auto) 0.3 Baso # (Auto) 0.1 Abs Immat Gran (auto) 0.02 Absolute Neuts (auto) 4.6 Absolute Nucleated RBC 0.000 Nucleated RBC % 0.0 PT 12.6 INR 0.9 Sodium 137 Potassium 3.9 Chloride 103 Carbon Dioxide 31 H Anion Gap 3 L BUN 18 H Creatinine 0.80 Estim Creat Clear Calc 33 Estimated GFR > 60 Glucose 122 H Calcium 9.3 Total Bilirubin 0.5 AST 36 ALT 18 Alkaline Phosphatase 111 Total Protein 7.0 Albumin 4.3
[2024-10-08 09:19] LABS: Basophils Absolute Auto 0.1 K/mm3 (0.0-0.1); Basophils Percent Auto 0.5 % (0.2-1.2); Eosinophils Absolute Auto 0.1 K/mm3 (0-0.3); Eosinophils Percent Auto 1.3 % (0-4.4); Hematocrit 40.5 % (37.0-47.0); Hemoglobin 13.1 g/dL (12.0-15.0); Immature Granulocyte Absolute 0.03 K/mm3 (0.00-0.031); Immature Granulocyte Percent A 0.3 % (0-0.5); Lymphocytes Absolute Auto 1.08 K/mm3 (0.9-3.2); Lymphocytes Percent Auto 11.7 % (18.3-44.2); Mean Corpuscular HGB Conc 32.3 g/dl (32-36); Mean Corpuscular Hemoglobin 31.6 pg (26-34); Mean Corpuscular Volume 97.6 fl (80-100); Mean Platelet Volume 9.6 fl (7.4-10.4); Monocytes Absolute Auto 1.1 K/mm3 (0.1-0.6); Monocytes Percent Auto 11.7 % (2.6-8.5); Neutrophils Absolute Auto 6.9 K/mm3 (1.3-6.7); Neutrophils Percent Auto 74.5 % (45.5-73.1); Platelet Count Result 250 k/mm3 (150-375); Red Blood Count 4.15 M/mm3 (4.2-5.4); Red Cell Distribution Width 13.2 % (11.5-14.5); White Blood Count 9.2 K/mm3 (4.5-10.0)
[2024-10-08 09:31] LABS: Anion Gap 2 mmol/L (4-12); Blood Urea Nitrogen 18 mg/dL (7-17); Calcium 8.7 mg/dL (8.4-10.2); Carbon Dioxide 32 mmol/L (22-30); Chloride 104 mmol/L (98-107); Estimated CRCL calculation 38 ml/min; Estimated Glomerular Filt Rate > 60; Glucose 111 mg/dL (65-110); Potassium 4.3 mmol/L (3.4-5.0); Sodium 138 mmol/L (137-145)
--- NOTE | 2024-10-08 12:51 | P.CONOP_ITS ---
Assessment and Plan Assessment and plan (1) Intertrochanteric fracture of left femur: Qualifiers: Encounter type: initial encounter Fracture alignment: n ondisplaced Fracture type: closed Qualified Code(s): S72.145A - Nondisplaced intertrochanteric fracture of left femur, initial encounter for closed fracture <JYOTI Carpenter - Last Filed: 10/08/24 12:56> Code(s): S72.142A - Displaced intertrochanteric fracture of left femur, initial encounter for closed fracture <JYOTI Carpenter - Last Filed: 10/08/24 12:56> Status: Acute <JYOTI Carpenter - Last Filed: 10/08/24 12:56> Assessment and Plan: Radiographs of left hip in the emergency room revealed an intertrochanteric fracture of proximal left femur and moderate osteoarthritis of the hips. The fracture type and injury as well as radiographs discussed with the patient and family. Operative and nonoperative treatment options reviewed. The patients questions were answered. The patient desires operative treatment. Discussed Left IT Nail. Risks of surgery including but not limited to neurovascular damage, wound complications, blood clot, pulmonary embolus, stroke, myocardial infarction, anesthetic risks up to and including were reviewed. Continued pain and possible dysfunction were explained. Risk of nonunion, malunion or late displacement discussed. Stiffness, pain and possible dysfunction of the joint discussed. No guarantees were offered. The patient understands and wishes to proceed. Plan: Left IT Nail by Dr. Corona Obtain Consent. NPO at midnight. Pain control. Ice. Bedrest. Walker Catheter. <JYOTI Carpenter - Last Filed: 10/08/24 12:56> Assessment and Plan: Reviewed history, exam, radiographs and current labs with attending MD and covering surgeon, Dr. Corona, who agrees with current plan as indicated above. No further recommendations from Dr. Corona at this time. <JYOTI Carpenter - Last Filed: 10/08/24 12:56> History of Present Illness HPI Consult date: 10/08/24 <JYOTI Carpenter - Last Filed: 10/08/24 12:56> 10/09/24 <Charles Corona MD - Last Filed: 10/09/24 07:22> Chief complaint: Left hip fracture <JYOTI Carpenter - Last Filed: 10/08/24 12:56> Narrative: 89-year-old female admitted status post fall onto the left hip which resulted in a left hip intertrochanteric fracture. Orthopedic consult requested by the emergency room physician. Patient admitted for further orthopedic workup and possible surgical intervention. <JYOTI Carpenter - Last Filed: 10/08/24 12:56> Review of Systems 2 Constitutional: Constitutional: Reports no additional constitutional complaints, Denies chills, Denies fatigue, Denies fever(s), Denies headache(s) and Denies weakness <JYOTI Carpenter - Last Filed: 10/08/24 12:56> Eyes: Eyes: Denies change in vision <JYOTI Carpenter - Last Filed: 10/08/24 12:56> ENT: Reports Normal hearing present and Denies headache(s) <JYOTI Carpenter - Last Filed: 10/08/24 12:56> Cardiovascular: Cardiovascular: Denies chest pain and Denies dyspnea < JYOTI Carpenter - Last Filed: 10/08/24 12:56> Respiratory: Respiratory: Denies cough, Denies dyspnea and Denies wheezing <JYOTI Carpenter - Last Filed: 10/08/24 12:56> Gastrointestinal: Gastrointestinal: Denies constipation, Denies diarrhea, Denies nausea and Denies vomiting <JYOTI Carpenter - Last Filed: 10/08/24 12:56> Genitourinary: Genitourinary: Denies hematuria and Denies dysuria <JYOTI Carpenter - Last Filed: 10/08/24 12:56> Musculoskeletal: Musculoskeletal: Reports as per HPI, Denies numbness and Denies tingling <JYOTI Carpenter - Last Filed: 10/08/24 12:56> Integumentary/Breasts: Skin/Breast: Reports as per HPI <JYOTI Carpenter - Last Filed: 10/08/24 12:56> Neurologic: Reports as per HPI, Reports Normal hearing present, Denies headache(s), Denies numbness, Denies tingling and Denies weakness <JYOTI Carpenter - Last Filed: 10/08/24 12:56> Psychiatric: Psychiatric: Reports no additional psychiatric complaints < JYOTI Carpenter - Last Filed: 10/08/24 12:56> Endocrine: Endocrine: Reports no additional endocrine complaints and Denies fatigue <JYOTI Carpenter - Last Filed: 10/08/24 12:56> Hematologic/Lymphatic: Hematologic/Lymphatic: Reports no additional hematologic/lymphatic complaints <JYOTI Carpenter - Last Filed: 10/08/24 12:56> Allergic/Immunologic: Allergic/Immunologic: Reports no additional allergic/immunologic complaints and Denies wheezing <JYOTI Carpenter - Last Filed: 10/08/24 12:56> [facility] Past Medical History Medical History: Medical History (Updated 10/08/24 @ 12:53 by JYOTI Carpenter) Intertrochanteric fracture of left femur Atherosclerotic heart disease of [place] coronary artery without angina pectoris Lumbar radiculopathy Mixed conductive and sensorineural hearing loss of both ears With bilateral hearing aids Vertigo Vitamin D deficiency Asthma Essential hypertension Esophageal stricture HSV-2 (herpes simplex virus 2) infection Osteoporosis Chronic GERD HLD (hyperlipidemia) Hypertensive heart disease without congestive heart failure <JYOTI Carpenter - Last Filed: 10/08/24 12:56> Surgical History Surgical History: Surgical History (Updated 10/08/24 @ 07:38 by Vannessa Downing, DO) History of meniscectomy of left knee (02/2013) Performed by Dr. Charles Corona History of total right knee replacement History of tonsillectomy History of coronary angioplasty (~1987) [facility] Status post cataract extraction of both eyes with insertion of intraocular lens (~2010) History of hysterectomy History of appendectomy <JYOTI Carpenter - Last Filed: 10/08/24 12:56> Family History Family History: Family History Mother Hypertension Cerebrovascular accident Family history of diabetes mellitus in first degree relative Patient's mother is Sibling Asthma Family history of malignant neoplasm Family history of diabetes mellitus in first degree relative Patient's brother is Family history of kidney disease Father Family history of diabetes mellitus in first degree relative Patient's father is Hypertension Family history of coronary artery disease Other Diabetes mellitus Family history of arthritis <JYOTI Carpenter - Last Filed: 10/08/24 12:56> Social History Social History: Social History (Updated 10/08/24 @ 07:44 by Vannessa Downing DO) Social History: Patient lives with her of over 50 years. She ambulates with a cane. She is a former smoker and smoked up to 1 pack cigarettes per day but quit in 1999. She smoked about a pack per day for 40-45 years. She denies any history of alcohol use or illicit substance use. Code status: She states that she does not believe she would want CPR but she does have an advanced directive in place. She will defer decision to her . Surrogate decision maker: Curtis () Smoking packs per day: 1 Smoking cigarettes per day: 20.0 Years smoked: 40 Smoking pack-years: 40.00 Smoking status: Former smoker Tobacco type: cigarettes Second hand tobacco smoke exposure: No Smoking end date: 10/21/99 Alcohol intake: never Substance use: never Substance use type: does not use Do You Feel Safe in your Home?: Yes Lack of Transportation: No Lack of Food: Never True Current Housing: I Have Housing Concerned About Future Housing: No Difficulty Paying Gas/Electric Bills: No Difficulty Paying for Meds: No Currently Unemployed: No Education: High School Diploma/GED Difficulty w/ Childcare or Family Care: No Living arrangements: [facility] Occupation/Education: retired Gender identity (if verbalized by the patient): Female Spiritual care concerns: No <JYOTI Carpenter - Last Filed: 10/08/24 12:56> Meds Home Medications and Allergies Home medications: Home Medications ?Medication ?Instructions ?Recorded ?Confirmed ?Type aspirin 81 mg chewable tablet 81 mg PO DAILY 11/03/19 10/07/24 History acetaminophen 650 mg 650 mg PO Q8H PRN pain #10 tabs 08/03/20 10/07/24 Rx tablet,extended release (Tylenol Arthritis Pain) isosorbide mononitrate 30 mg 15 mg PO DAILY 08/04/20 10/07/24 History tablet,extended release 24 hr diclofenac sodium 1 % topical gel 2 g topical BID PRN back pain 07/01/21 10/07/24 History (Voltaren Arthritis Pain) valacyclovir 500 mg tablet 500 mg PO Q12H PRN outbreak 3 days 12/14/22 10/07/24 Rx (Valtrex) #24 tabs rosuvastatin 5 mg tablet 5 mg PO DAILY #30 tabs 12/02/23 10/07/24 Rx ergocalciferol (vitamin D2) 1,250 See Rx Instructions .Route 03/22/24 10/07/24 Rx mcg (50,000 unit) capsule .COMPLEX #3 caps omeprazole 20 mg capsule,delayed 20 mg PO DAILY #90 caps 06/08/24 10/07/24 Rx release valsartan 40 mg tablet 40 mg PO DAILY #90 tabs 08/29/24 10/07/24 Rx diltiazem HCl 120 mg 120 mg PO Q24H 10/07/24 10/07/24 History capsule,extended release 24 hr <JYOTI Carpenter - Last Filed: 10/08/24 12:56> Allergies/Adverse reactions: Allergies Allergy/AdvReac Type Severity Reaction Status Date / Time No Known Allergies Allergy Verified 10/07/24 15:24 <JYOTI Carpenter - Last Filed: 10/08/24 12:56> Vital Signs Vital Signs - 24 hr 10/07/24 15:22 10/07/24 15:30 10/07/24 15:31 Temperature 37.1 C Pulse Rate 85 83 72 Respiratory Rate 18 16 17 Blood Pressure 130/106 H 140/72 Pulse Oximetry 97 96 99 Oxygen Delivery 10/07/24 15:57 10/07/24 16:11 10/07/24 16:15 Temperature Pulse Rate 81 74 78 Respiratory Rate 18 20 14 Blood Pressure Pulse Oximetry 97 97 97 Oxygen Delivery 10/07/24 16:40 10/07/24 17:04 10/07/24 17:15 Temperature Pulse Rate 83 83 48 L Respiratory Rate 25 H 22 H 18 Blood Pressure Pulse Oximetry 94 93 96 Oxygen Delivery 10/07/24 17:30 10/07/24 17:32 10/07/24 17:45 Temperature Pulse Rate 80 81 80 Respiratory Rate 17 19 14 Blood Pressure 168/76 H Pulse Oximetry 95 95 95 Oxygen Delivery 10/07/24 18:01 10/07/24 18:02 10/07/24 18:15 Temperature Pulse Rate 79 81 84 Respiratory Rate 18 19 15 Blood Pressure 161/67 H Pulse Oximetry 92 92 95 Oxygen Delivery 10/07/24 18:30 10/07/24 18:31 10/07/24 20:00 Temperature Pulse Rate 84 81 Respiratory Rate 22 H 21 H Blood Pressure 139/54 L Pulse Oximetry 98 Oxygen Delivery Room Air 10/07/24 21:14 10/07/24 21:16 10/08/24 00:00 Temperature 36.2 C L 36.2 C L 36.3 C L Pulse Rate 71 71 70 Respiratory Rate 16 16 16 Blood Pressure 151/61 H 151/61 H 143/72 H Pulse Oximetry 93 93 94 Oxygen Delivery 10/08/24 05:57 10/08/24 08:00 Temperature 36.2 C L Pulse Rate 82 Respiratory Rate 18 Blood Pressure 138/56 L Pulse Oximetry 93 Oxygen Delivery Room Air <ANA CarpenterP - Last Filed: 10/08/24 12:56> Exam 2 Const: General: cooperative, comfortable and average body habitus <ANA CarpenterP - Last Filed: 10/08/24 12:56> Nutritional Appearance: average body habitus <ANA CarpenterP - Last Filed: 10/08/24 12:56> Orientation/consciousness: patient oriented x3 <ANA CarpenterP - Last Filed: 10/08/24 12:56> Limitations: no limitations <ANA CarpenterP - Last Filed: 10/08/24 12:56> HENMT: Head: normal to inspection and No palpable skull fracture present < ANA CarpenterP - Last Filed: 10/08/24 12:56> Ears: hearing grossly normal bilaterally and external ears normal <ANA CarpenterP - Last Filed: 10/08/24 12:56> Face/Nose/Sinus: Normal external nose present, Normal nares present, Normal nasal mucous membranes and turbinates present and normal facial exam <ANA CarpenterP - Last Filed: 10/08/24 12:56> Face and sinus: normal facial exam <Nahomy Goodman [facility] - Last Filed: 10/08/24 12:56> Mouth: Yes Normal oral and palatal mucosa present <Nahomy Goodman [facility] - Last Filed: 10/08/24 12:56> Teeth and gingiva: dentition normal <Nahomy Goodman [facility] - Last Filed: 10/08/24 12:56> Eyes: General: appearance normal, both eyes and all related structures < Nahomy Goodman [facility] - Last Filed: 10/08/24 12:56> Sclera: sclerae normal <Nahomy Goodman [facility] - Last Filed: 10/08/24 12:56> Pupils: Equal, round and reactive pupils present <Nahomy Goodman [facility] - Last Filed: 10/08/24 12:56> Neck: Neck: normal visual inspection and full ROM <Nahomy Goodman [facility] - Last Filed: 10/08/24 12:56> Resp: Effort & Inspection: normal respiratory effort and able to speak in complete sentences <Nahomy Goodman [facility] - Last Filed: 10/08/24 12:56> Cardio: Jugular venous distension: no JVD <Nahomy Goodman [facility] - Last Filed: 10/08/24 12:56> Rate: regular rate <Nahomy Goodman [facility] - Last Filed: 10/08/24 12:56> Rhythm: regular rhythm <Nahomy Goodman [facility] - Last Filed: 10/08/24 12:56> GI: Inspection: normal to inspection <Nahomy Goodman [facility] - Last Filed: 10/08/24 12:56> GI Palp: No abdominal tenderness <Nahomy Goodman [facility] - Last Filed: 10/08/24 12:56> Urinary Catheter: Urinary Catheter: patent and draining and urine clear < Nahomy Goodman [facility] - Last Filed: 10/08/24 12:56> Skin: General skin exam: normal color and no rashes or lesions noted < Nahomy Goodman [facility] - Last Filed: 10/08/24 12:56> Wounds: no wounds <Nahomy Goodman [facility] - Last Filed: 10/08/24 12:56> Neuro: General: patient oriented x3, No gait normal (NWB ), No moves all extremities and Unable to assess gait (bedrest ) <Nahomy Goodman [facility] - Last Filed: 10/08/24 12:56> Cranial nerves: Yes Equal, round and reactive pupils present <ANA CarpenterP - Last Filed: 10/08/24 12:56> Cognition (Neuro): normal cognition <ANA CarpenterP - Last Filed: 10/08/24 12:56> Speech: normal speech <Nahomy Goodman [facility] - Last Filed: 10/08/24 12:56> Gait exam (Neuro): Unable to assess gait (bedrest ) <Nahomy Goodman [facility] - Last Filed: 10/08/24 12:56> Sensory Exam: normal sensation <Nahomy Goodman [facility] - Last Filed: 10/08/24 12:56> Extrem: Right upper extremity: normal to inspection, full ROM and normal capillary refill <Nahomy Goodman [facility] - Last Filed: 10/08/24 12:56> Left upper extremity: normal to inspection, full ROM and normal capillary refill <Nahomy Goodman [facility] - Last Filed: 10/08/24 12:56> Right lower extremity: normal to inspection, full ROM, normal capillary refill, hip/thigh Details: normal to inspection and normal ROM; no tenderness and no swelling and knee Details: normal to inspection and normal ROM; no tenderness and no swelling <Nahomy Goodman [facility] - Last Filed: 10/08/24 12:56> Left lower extremity: hip/thigh Details: abnormal to inspection Details: foreshortened and externally rotated, tenderness Location: of the hip Location: laterally, anteromedially and over the great trochanter, swelling Location: of the hip and of the proximal upper leg and abnormal ROM ( Limited due to fracture); ROM abnormal ( Range of motion strength testing deferred due to fracture.), ankle ( positive ankle dorsiflexion /plantar flexion) Details: normal to inspection and no edema; no tenderness and no swelling and foot Details: normal capillary refill, vascular exam Details: dorsalis pedis pulse present and motor-sensory exam light-touch normal <JYOTI Carpenter - Last Filed: 10/08/24 12:56> Results Labs Result Diagrams: 10/08/24 08:54 10/08/24 08:54 <JYOTI Carpenter - Last Filed: 10/08/24 12:56> Labs: Abnormal lab results 10/07/24 10/08/24 Range/Units 16:14 08:54 RBC 4.15 L (4.2-5.4) M/mm3 Neut % (Auto) 74.5 H (45.5-73.1) % Lymph % (Auto) 17.0 L 11.7 L (18.3-44.2) % [place] % (Auto) 12.8 H 11.7 H (2.6-8.5) % [place] # (Auto) 0.9 H 1.1 H (0.1-0.6) K/mm3 Absolute Neuts (auto) 6.9 H (1.3-6.7) K/mm3 Carbon Dioxide 31 H 32 H (22-30) mmol/L Anion Gap 3 L 2 L (4-12) mmol/L BUN 18 H 18 H (7-17) mg/dL Glucose 122 H 111 H (65-110) mg/dL H & H 10/07/24 10/08/24 Range/Units 16:14 08:54 Hgb 14.7 13.1 (12.0-15.0) g/dL Hct 44.3 40.5 (37.0-47.0) % Coagulation 10/07/24 Range/Units 16:14 INR 0.9 All other labs normal. <JYOTI Carpenter - Last Filed: 10/08/24 12:56>
[2024-10-08 14:00] VITALS: BP 123/53; PULSE 69; RESP 16; TEMP 36.4; O2SAT 94
[2024-10-08 14:56] VITALS: BP 123/53; PULSE 69; RESP 18; TEMP 36.4; O2SAT 94
[2024-10-08] MEDS: HYDROcodone/acetaminophen (*CRX) 5-325 MG TABLET 1 TAB PO (14:56)
[2024-10-08] MEDS: dilTIAZem HCL CD 120 MG CAP.24HR PO (21:15)
[2024-10-08 21:29] VITALS: BP 136/55; PULSE 76; RESP 14; TEMP 36.5; O2SAT 92
[2024-10-09] VITALS (12 sets, daily range): BP systolic 113–160; BP diastolic 48–87; PULSE 70–85; RESP 14–20; TEMP 35.9–37; O2SAT 92–100
[2024-10-09] MEDS: SODIUM CHLORIDE 0.9% IV 1,000 ML 100 ML IV CONT ×2 (03:03→13:58)
--- NOTE | 2024-10-09 07:22 | WPDHPUPDATE1 ---
History and Physical Update Update Date/Time: 10/09/24 07:22 History and Physical has been reviewed, including an updated exam of the patient. There are NO changes in the patient's condition. Risks, benefits, and alternatives have been discussed and questions answered. Patient agrees to proceed with procedure.
[2024-10-09 07:35] LABS: Basophils Absolute Auto 0.1 K/mm3 (0.0-0.1); Basophils Percent Auto 0.9 % (0.2-1.2); Eosinophils Absolute Auto 0.4 K/mm3 (0-0.3); Eosinophils Percent Auto 3.6 % (0-4.4); Hematocrit 36.6 % (37.0-47.0); Hemoglobin 11.6 g/dL (12.0-15.0); Immature Granulocyte Absolute 0.06 K/mm3 (0.00-0.031); Immature Granulocyte Percent A 0.6 % (0-0.5); Lymphocytes Absolute Auto 1.12 K/mm3 (0.9-3.2); Lymphocytes Percent Auto 10.8 % (18.3-44.2); Mean Corpuscular HGB Conc 31.7 g/dl (32-36); Mean Corpuscular Hemoglobin 31.1 pg (26-34); Mean Corpuscular Volume 98.1 fl (80-100); Mean Platelet Volume 9.6 fl (7.4-10.4); Monocytes Absolute Auto 1.4 K/mm3 (0.1-0.6); Neutrophils Absolute Auto 7.4 K/mm3 (1.3-6.7); Neutrophils Percent Auto 71.1 % (45.5-73.1); Platelet Count Result 220 k/mm3 (150-375); Red Blood Count 3.73 M/mm3 (4.2-5.4); Red Cell Distribution Width 13.2 % (11.5-14.5); White Blood Count 10.4 K/mm3 (4.5-10.0)
[2024-10-09 07:43] LABS: Anion Gap 0 mmol/L (4-12); Blood Urea Nitrogen 13 mg/dL (7-17); Calcium 8.3 mg/dL (8.4-10.2); Carbon Dioxide 30 mmol/L (22-30); Chloride 105 mmol/L (98-107); Estimated CRCL calculation 44 ml/min; Estimated Glomerular Filt Rate > 60; Glucose 108 mg/dL (65-110); Potassium 4.2 mmol/L (3.4-5.0); Sodium 135 mmol/L (137-145)
[2024-10-09] MEDS: MORPHINE SULFATE (*CRX) 4 MG/ML INJ IV PUSH (07:55)
[2024-10-09] MEDS: VALSARTAN 40 MG TABLET PO (08:02)
[2024-10-09] MEDS: ROSUVASTATIN 5 MG TABLET PO (08:02)
[2024-10-09] MEDS: PANTOPRAZOLE 40 MG TABLET PO (08:02)
[2024-10-09] MEDS: ISOSORBIDE MONONITRATE 15 MG TAB.ER.24H PO (08:02)
--- NOTE | 2024-10-09 14:33 | P.PNIM_ITS ---
Progress Note: A&P Assessment and Plan (1) Atherosclerotic heart disease of [place] coronary artery without angina pectoris: Qualifiers: [place] vs. transplanted heart: [place] heart Qualified Code(s): I25.10 - Atherosclerotic heart disease of [place] coronary artery without angina pectoris Code(s): I25.10 - Atherosclerotic heart disease of [place] coronary artery without angina pectoris Status: Acute (2) Essential hypertension: Code(s): I10 - Essential (primary) hypertension Status: Acute (3) Closed hip fracture: Qualifiers: Encounter type: initial encounter Laterality: left Qualified Code(s): S72.002A - Fracture of unspecified part of neck of left femur, initial encounter for closed fracture Code(s): S72.009A - Fracture of unspecified part of neck of unspecified femur, initial encounter for closed fracture Status: Acute Plan 89-year-old female with a past medical history of coronary disease status post angioplasty in the , essential hypertension, hyperlipidemia, asthma, esophageal stricture, GERD and osteoporosis who presented to the ER via EMS after having a fall resulting in hip fracture. (1) Closed hip fracture: Qualifiers: Encounter type: initial encounter Laterality: left Qualified Code(s): S72.002A - Fracture of unspecified part of neck of left femur, initial encounter for closed fracture Code(s): S72.009A - Fracture of unspecified part of neck of unspecified femur, initial encounter for closed fracture Status: Acute (2) Atherosclerotic heart disease of [place] coronary artery without angina pectoris: Qualifiers: [place] vs. transplanted heart: [place] heart Qualified Code(s): I25.10 - Atherosclerotic heart disease of [place] coronary artery without angina pectoris Code(s): I25.10 - Atherosclerotic heart disease of [place] coronary artery without angina pectoris Status: Acute (3) Essential hypertension: Code(s): I10 - Essential (primary) hypertension Status: Acute Hip fracture status post fall Patient has acute left intratrochanteric fracture due to ground level fall. history of osteoporosis. Orthopedic surgery has been consulted. P atient is nonweightbearing until evaluated by surgery. P ain medications have been ordered with [place] and morphine as needed. Plan surgical treatment a.m. tomorrow coronary artery disease Status post stent x1 Patient denies chest pain Continue home medication aspirin 81 mg daily p.o. And essential hypertension b continue patient's home antihypertensives and 81 mg aspirin. Osteoporosis Patient would benefit from both calcium and vitamin-D supplementation as outpatient. She does take vitamin-D weekly but may benefit from some daily supplement as well. Subjective Date/time seen: 10/09/24 14:33 Interval history: Evaluated the patient at bedside. Patient was little nervous but she agrees it is common to have little anxiety right before the surgery. Patient will undergo Left IT Nail by Dr. Corona Review of Systems Review of Systems: 12 systems were reviewed with pertinent positives and negatives per HPI. Except as documented in the HPI, all other systems were reviewed and are negative. Exam Narrative: GENERAL: Pleasant, in no acute distress. Well-nourished. - EYES: EOMI. Anicteric. - HENT: Moist mucous membranes. - LUNGS: Clear to auscultation bilateral ly, no wheezing, rhonchi, or rales. - CARDIOVASCULAR: Regular rate and rhyth m. No murmur. No JVD. - ABDOMEN: Soft, non-tender and non-dist ended. No palpable masses. - EXTREMITIES: No edema. Peripheral puls es 2+. Non-tender. Range of movement of left hip is restricted because of pain - NEUROLOGIC: No focal neurological defi cits. CN II-XII grossly intact. - PSYCHIATRIC: Awake, Alert and oriented x 3. Appropriate mood and affect. - SKIN: No rashes or lesions. Warm. - LYMPH: No cervical lymphadenopathy. Const: Other: Well-developed, well-nourished, height weight proportionate, well groomed, no acute distress HENMT: Other: Head is normocephalic atraumatic, mucous membranes are tacky, upper dentures in place, patient reports her lower dentition is her natural teeth appear to be in fair condition Eyes: Other: Pupils are equal and reactive with evidence of bilateral lens implants, no conjunctival pallor, no scleral scleral icterus Neck: Other: No JVD, no lymphadenopathy Resp: Other: Clear to auscultation bilaterally, no increased work of breathing Cardio: Other: Regular rate, regular rhythm, 2+ bilateral radial pedal pulses GI: Other: Soft, nontender, nondistended, positive bowel sounds : Other: Pure wick catheter in place Skin: Other: No scleral icterus, no conjunctival pallor Neuro: Other: The patient is alert orient x4, speech is clear, hard of hearing, no localizing neurologic deficits noted during the course of conversation Extrem: Other: Left leg is externally rotated the hip in shortened, distal extremity is neurovascularly intact Psych: Other: Appropriate mood and affect, pleasant and cooperative, judgment and insight intact Objective Data Vital Signs Vital Signs: Vital Signs - 24 hr 10/08/24 14:56 10/08/24 20:00 10/08/24 21:29 Temperature 97.6 F 97.7 F Pulse Rate 69 76 Respiratory Rate 18 14 Blood Pressure 123/53 L 136/55 L Pulse Oximetry 94 92 Oxygen Delivery Room Air Oxygen Flow Rate 10/09/24 05:26 10/09/24 08:00 10/09/24 08:00 Temperature 98.6 F 97.8 F Pulse Rate 85 84 Respiratory Rate 14 20 Blood Pressure 136/57 L 140/70 Pulse Oximetry 92 97 94 Oxygen Delivery Nasal Cannula Oxygen Flow Rate 2 10/09/24 10:56 Temperature Pulse Rate Respiratory Rate Blood Pressure Pulse Oximetry 94 Oxygen Delivery Nasal Cannula Oxygen Flow Rate 1.5 Intake/Output Intake/Output: Intake & Output 10/06/24 10/07/24 10/08/24 10/09/24 23:59 23:59 23:59 23:59 Intake Total 2360 2240 Output Total 1450 650 Balance 910 1590 Meds/Results Medications: Active Medications Generic Name Dose Route Start Last Admin Trade Name Freq PRN Reason Stop Dose Admin Acetaminophen 650 mg 10/07/24 17:34 Acetaminophen 325 Mg Tablet PO Q4H PRN Mild Pain (1-3) or Fever Hydrocodone Bitart/Acetaminophen 1 tab 10/07/24 17:31 10/08/24 14:56 Hydrocodone/Acetaminophen (*Crx) 5-325 Mg Tablet PO 1 tab Q6H PRN Administration Pain Rated 4-6 Aspirin 81 mg 10/08/24 09:00 10/09/24 07:54 Aspirin 81 Mg Chewable Tablet PO Not Given DAILY VERONIQUE Diclofenac Sodium 0 applic 10/07/24 21:36 Diclofenac Sodium 1% 100 Gm Gel (*Bkc) TOPICAL BID PRN back pain Diltiazem HCl 120 mg 10/07/24 22:15 10/08/24 21:15 Diltiazem Hcl Cd 120 Mg Cap.24hr PO 120 mg HS VERONIQUE Administration Docusate Sodium 100 mg 10/07/24 17:31 Docusate Sodium 100 Mg Capsule PO Q12H PRN Constipation Enoxaparin Sodium 40 mg 10/09/24 09:00 10/09/24 07:54 Enoxaparin 40 Mg/0.4 Ml Syringe SUB-Q Not Given DAILY [facility] Sodium Chloride 1,000 mls @ 100 mls/hr 10/07/24 17:35 10/09/24 13:58 Normal Saline Iv IV CONT 100 mls/hr .Q10H VERONIQUE Administration Isosorbide Mononitrate 15 mg 10/08/24 09:00 10/09/24 08:02 Isosorbide Mononitrate 15 Mg Tab.Er.24h PO 15 mg DAILY [facility] Administration Morphine Sulfate 4 mg 10/07/24 17:34 10/09/24 07:55 Morphine Sulfate (*Crx) 4 Mg/Ml Inj IV PUSH 4 mg Q2H PRN Administration Pain Rated 7-10 Naloxone HCl 0.1 mg 10/07/24 17:31 Naloxone Hcl 0.4 Mg/Ml Vial IV PUSH Q5MIN PRN Sedation Ondansetron HCl 4 mg 10/07/24 17:34 10/08/24 08:35 Ondansetron Inj 4 Mg/2 Ml Vial IV PUSH 4 mg Q4H PRN Administration Nausea Pantoprazole Sodium 40 mg 10/08/24 09:00 10/09/24 08:02 Pantoprazole 40 Mg Tablet PO 40 mg QAM [facility] Administration Rosuvastatin Calcium 5 mg 10/08/24 09:00 10/09/24 08:02 Rosuvastatin 5 Mg Tablet PO 5 mg DAILY [facility] Administration Valsartan 40 mg 10/08/24 09:00 10/09/24 08:02 Valsartan 40 Mg Tablet PO 40 mg DAILY VERONIQUE Administration Radiology Results: ITS Impressions Chest X-Ray 10/07/24 16:41 IMPRESSION: 1. No acute cardiopulmonary disease. Hip/Pelvis X-Ray 10/07/24 16:46 IMPRESSION: 1. Intertrochanteric fracture of proximal left femur. 2. Moderate osteoarthritis of the hips. Labs Labs: Laboratory Results - last 24 hr 10/09/24 07:12 WBC 10.4 H RBC 3.73 L Hgb 11.6 L Hct 36.6 L MCV 98.1 MCH 31.1 MCHC 31.7 L RDW 13.2 Plt Count 220 MPV 9.6 Immature Gran % (Auto) 0.6 H Neut % (Auto) 71.1 Lymph % (Auto) 10.8 L [place] % (Auto) 13.0 H Eos % (Auto) 3.6 Baso % (Auto) 0.9 Lymph # (Auto) 1.12 [place] # (Auto) 1.4 H Eos # (Auto) 0.4 H Baso # (Auto) 0.1 Abs Immat Gran (auto) 0.06 H Absolute Neuts (auto) 7.4 H Absolute Nucleated RBC 0.000 Nucleated RBC % 0.0 Sodium 135 L Potassium 4.2 Chloride 105 Carbon Dioxide 30 Anion Gap 0 L BUN 13 D Creatinine 0.60 L Estim Creat Clear Calc 44 Estimated GFR > 60 Glucose 108 Calcium 8.3 L Quality VTE Prophylaxis VTE prophylaxis: pharmacologic ordered (Lovenox 40 mg subq daily to be started postop) Hospitalist MIPS Advance Care Plan I have confirmed that the patient's Advanced Care Plan is present, code status is documented, or surrogate decision maker is listed in patient medical record.: Yes Medication Reconciliation I have utilized all available resources to obtain, update and review the patients current medications (includes all prescriptions, OTC, herbals, cannabis, and nutritional supplements).: Yes
[2024-10-09] MEDS: KETOROLAC 15 MG/ML VIAL (*BKC) IV PUSH (15:30)
[2024-10-09] MEDS: ACETAMINOPHEN 500 MG TABLET 1000 MG PO (15:30)
[2024-10-09] MEDS: TRANEXAMIC ACID 1,000MG/ISO100 1,000 MG/100 ML BAG 200 MG IVPB (15:30)
--- NOTE | 2024-10-09 15:52 | WPDANESEPPF ---
Anes - Initial Pre Proc Eval Procedure: Operation Date: 10/09/24 17:00 Proposed Procedures p Left Intertrochanteric Nail - Charles Corona MD Date/Time: 10/09/24 15:52 Surgeon: Uriel Joseph MD Pre Op Diagnosis: Left hip fracture Patient Data Age: 89 Gender: F Height: 1.57 m Weight: 61.4 kg Last Vital Signs Temp 36.6 C 10/09/24 08:00 Pulse 84 10/09/24 08:00 Resp 20 10/09/24 08:00 BP 140/70 10/09/24 08:00 Pulse Ox 94 10/09/24 10:56 O2 Del Method Nasal Cannula 10/09/24 10:56 O2 Flow Rate 1.5 10/09/24 10:56 Allergies Allergy/AdvReac Type Severity Reaction Status Date / Time No Known Allergies Allergy Verified 10/09/24 15:54 Home Medications ?Medication ?Instructions ?Recorded ?Confirmed ?Type aspirin 81 mg chewable tablet 81 mg PO DAILY 11/03/19 10/13/24 History acetaminophen 650 mg 650 mg PO Q8H PRN pain #10 tabs 08/03/20 10/12/24 Rx tablet,extended release (Tylenol Arthritis Pain) isosorbide mononitrate 30 mg 15 mg PO DAILY 08/04/20 10/12/24 History tablet,extended release 24 hr diclofenac sodium 1 % topical gel 2 g topical BID PRN back pain 07/01/21 10/12/24 History (Voltaren Arthritis Pain) valacyclovir 500 mg tablet 500 mg PO Q12H PRN outbreak 3 days 12/14/22 10/12/24 Rx (Valtrex) #24 tabs rosuvastatin 5 mg tablet 5 mg PO DAILY #30 tabs 12/02/23 10/12/24 Rx ergocalciferol (vitamin D2) 1,250 See Rx Instructions .Route 03/22/24 10/12/24 Rx mcg (50,000 unit) capsule .COMPLEX #3 caps omeprazole 20 mg capsule,delayed 20 mg PO DAILY #90 caps 06/08/24 10/12/24 Rx release valsartan 40 mg tablet 40 mg PO DAILY #90 tabs 08/29/24 10/12/24 Rx aspirin 325 mg tablet 325 mg PO BID 28 days #56 tabs 10/12/24 10/12/24 Rx diltiazem HCl 120 mg 120 mg PO Q24H #30 caps 10/12/24 10/12/24 Rx capsule,extended release 24 hr hydrocodone 5 mg-acetaminophen 325 1 tablet PO Q6H PRN pain #40 tabs 10/12/24 10/12/24 Rx mg tablet hydrocortisone 1 % topical cream 1 applic topical TID PRN rash 10/12/24 10/12/24 Rx #28.35 grams sennosides 8.6 mg-docusate sodium 2 tab PO BID #60 tabs 10/12/24 10/12/24 Rx 50 mg tablet (Senokot-S) Laboratory Tests 10/09/24 07:12 WBC 10.4 H K/mm3 (4.5-10.0) RBC 3.73 L M/mm3 (4.2-5.4) Hgb 11.6 L g/dL (12.0-15.0) Hct 36.6 L % (37.0-47.0) MCV 98.1 fl (80-100) MCH 31.1 pg (26-34) MCHC 31.7 L g/dl (32-36) RDW 13.2 % (11.5-14.5) Plt Count 220 k/mm3 (150-375) MPV 9.6 fl (7.4-10.4) Immature Gran % (Auto) 0.6 H % (0-0.5) Neut % (Auto) 71.1 % (45.5-73.1) Lymph % (Auto) 10.8 L % (18.3-44.2) [place] % (Auto) 13.0 H % (2.6-8.5) Eos % (Auto) 3.6 % (0-4.4) Baso % (Auto) 0.9 % (0.2-1.2) Lymph # (Auto) 1.12 K/mm3 (0.9-3.2) [place] # (Auto) 1.4 H K/mm3 (0.1-0.6) Eos # (Auto) 0.4 H K/mm3 (0-0.3) Baso # (Auto) 0.1 K/mm3 (0.0-0.1) Abs Immat Gran (auto) 0.06 H K/mm3 (0.00-0.031) Absolute Neuts (auto) 7.4 H K/mm3 (1.3-6.7) Absolute Nucleated RBC 0.000 K/mm3 (0.0-0.012) Nucleated RBC % 0.0 % (0.0-0.2) Sodium 135 L mmol/L (137-145) Potassium 4.2 mmol/L (3.4-5.0) Chloride 105 mmol/L (98-107) Carbon Dioxide 30 mmol/L (22-30) Anion Gap 0 L mmol/L (4-12) BUN 13 D mg/dL (7-17) Creatinine 0.60 L mg/dL (0.7-1.0) Estim Creat Clear Calc 44 ml/min Estimated GFR > 60 (59 - ) Glucose 108 mg/dL (65-110) Calcium 8.3 L mg/dL (8.4-10.2) Patient hx anesthesia problems: none Family hx anesthesia problems: none Results Review: All pre-operative results and documents have been reviewed as part of the pre-operative evaluation. [facility] Past Medical History Medical History (Updated 10/13/24 @ 16:07 by Angella Magana MD) Osteoporosis CAD (coronary artery disease) Intertrochanteric fracture of left femur Atherosclerotic heart disease of [place] coronary artery without angina pectoris Lumbar radiculopathy Mixed conductive and sensorineural hearing loss of both ears With bilateral hearing aids Vertigo Vitamin D deficiency Asthma Essential hypertension Esophageal stricture HSV-2 (herpes simplex virus 2) infection Chronic GERD HLD (hyperlipidemia) Hypertensive heart disease without congestive heart failure Surgical History Surgical History History of coronary artery stent placement History of meniscectomy of left knee (02/2013) Performed by Dr. Charles Corona History of total right knee replacement History of tonsillectomy History of coronary angioplasty (~1987) [facility] Status post cataract extraction of both eyes with insertion of intraocular lens (~2010) History of hysterectomy History of appendectomy Family History Family History Mother Hypertension Cerebrovascular accident Family history of diabetes mellitus in first degree relative Patient's mother is Sibling Asthma Family history of malignant neoplasm Family history of diabetes mellitus in first degree relative Patient's brother is Family history of kidney disease Father Family history of diabetes mellitus in first degree relative Patient's father is Hypertension Family history of coronary artery disease Other Diabetes mellitus Family history of arthritis Social History Social History Social History: Patient lives with her of over 50 years. She ambulates with a cane. She is a former smoker and smoked up to 1 pack cigarettes per day but quit in 1999. She smoked about a pack per day for 40-45 years. She denies any history of alcohol use or illicit substance use. Code status: She states that she does not believe she would want CPR but she does have an advanced directive in place. She will defer decision to her . Surrogate decision maker: Curtis () Smoking packs per day: 1 Smoking cigarettes per day: 20.0 Years smoked: 40 Smoking pack-years: 40.00 Smoking status: Former smoker Tobacco type: cigarettes Second hand tobacco smoke exposure: No Smoking end date: 10/21/99 Alcohol intake: never Substance use: never Substance use type: does not use Do You Feel Safe in your Home?: Yes Lack of Transportation: No Lack of Food: Never True Current Housing: I Have Housing Concerned About Future Housing: No Difficulty Paying Gas/Electric Bills: No Difficulty Paying for Meds: No Currently Unemployed: No Education: High School Diploma/GED Difficulty w/ Childcare or Family Care: No Living arrangements: longterm [place] Occupation/Education: retired Gender identity (if verbalized by the patient): Female Spiritual care concerns: No Anes - Eval Final PreProcedure Day of Procedure 10/09/24 15:52 Patient weight: normal Heart: regular rate and rhythm Lungs: clear to auscultation Airway: Mallampati scale class II Neurological: alert and oriented Last oral intake: >/= 8 hours ASA classification: III Emergent: no Anesthetic plan: proceed Anesthesia type and monitoring: general LMA and standard monitoring Results Review: All pre-operative results and documents have been reviewed as part of the pre-operative evaluation. Informed Consent: The patient's anesthetic plan and its attendant risks and benefits were discussed with the patient/family/POA. Questions were solicited and answers provided to the satisfaction of the patient/family/POA.
[2024-10-09] MEDS: ceFAZolin 2 GM/D5W 50 ML 2 GM/50 ML BAG IVPB (16:38)
--- NOTE | 2024-10-09 17:35 | W.PM.PROC2 ---
Procedure Note - Detailed Date of Procedure 10/09/24 Pre-op Diagnosis Left hip fracture Post-op Diagnosis Same Procedure Performed INSERTION FEMORAL MAYRA LEFT HIP Surgeon Charles Corona MD Anesthesia General Description of Procedure THE PATIENT WAS TAKEN TO THE OPERATING ROOM AND PLACED ON A FRACTURE TABLE AFTER GIVEN GENERAL ANESTHESIA. THE LEFT LOWER EXTREMITY WAS PLACED IN A TRACTION BOOT AND USING SOME TRACTION AND INTERNAL ROTATION THE INNER TROCHANTERIC FRACTURE WAS REDUCED TO ANATOMIC POSITION. NEXT THE LEFT LOWER EXTREMITY WAS PREPPED AND DRAPED IN THE STERILE FASHION. AN INCISION WAS MADE PROXIMAL TO THE TIP OF THE GREATER TROCHANTER AND DISSECTION CONTINUED TILL THE TIP OF THE GREATER TROCHANTER WAS PALPATED. A GUIDE PIN WAS PLACED DOWN THE FEMORAL CANAL AND PAST THE FRACTURE SITE. THIS WAS CHECKED ON FLUOROSCOPY AND FOUND TO BE IN GOOD POSITION. AN INITIAL REAMER WAS USED TO REAM THE FEMORAL CANAL. AN 11 BY 200 MM ARTHREX MAYRA WAS INSERTED TILL THE CORRECT POSITION WAS IDENTIFIED ON XRAY. A GUIDE PIN WAS INSERTED THROUGH THE FEMORAL NECK AT 130 DEG ANGLE TILL IT REACHED THE TIP OF THE SUB CHONDRAL BONE SEEN ON XRAY. AFTER REAMING, LAG SCREW WAS INSERTED MEASURING 95 MM. XRAYS SHOWED IT TO BE IN GOOD POSITION. THE LAG SCREW WAS LOCKED PROXIMALLY WITH A LOCKING SCREW THEN COMPRESSED. NEXT A DISTAL LOCKING SCREW WAS PLACED ACROSS THE MAYRA AND WAS IN GOOD POSITION ON XRAY. THE TRACTION WAS RELEASED. THE WOUNDS WERE WASHED. THE DEEP FASCIA WAS REPAIRED WITH 0 VICRYL SUTURE, THE SUB CUTANEOUS LAYER WITH 2-0 VICRYL, AND THE SKIN WITH KAELA. THE WOUNDS WERE WASHED AND THEN STERILE DRESSING WAS APPLIED. PATIENT WAS EXTUBATED AND SENT TO RECOVERY ROOM. Estimated Blood Loss 100 Urine Output 650 Complications No immediate complications Condition Stable Disposition PACU
[2024-10-09] MEDS: LACTATED RINGERS 1,000 ML 30 ML IV CONT (17:41)
[2024-10-09] MEDS: ONDANSETRON INJ 4 MG/2 ML VIAL IV PUSH (18:15)
[2024-10-09] MEDS: dilTIAZem HCL CD 120 MG CAP.24HR PO (21:27)
[2024-10-10] VITALS (8 sets, daily range): BP systolic 116–148; BP diastolic 48–82; PULSE 70–80; RESP 16–18; TEMP 36.4–37.4; O2SAT 86–99
[2024-10-10] MEDS: ceFAZolin 2 GM/D5W 50 ML 2 GM/50 ML BAG IVPB ×3 (00:13→17:12)
[2024-10-10] MEDS: SODIUM CHLORIDE 0.9% IV 1,000 ML 125 ML IV CONT (03:30)
[2024-10-10 06:43] LABS: Basophils Percent Auto 0.2 % (0.2-1.2); Hematocrit 35.8 % (37.0-47.0); Hemoglobin 11.6 g/dL (12.0-15.0); Immature Granulocyte Absolute 0.05 K/mm3 (0.00-0.031); Immature Granulocyte Percent A 0.5 % (0-0.5); Lymphocytes Absolute Auto 0.83 K/mm3 (0.9-3.2); Lymphocytes Percent Auto 8.1 % (18.3-44.2); Mean Corpuscular HGB Conc 32.4 g/dl (32-36); Mean Corpuscular Hemoglobin 31.3 pg (26-34); Mean Corpuscular Volume 96.5 fl (80-100); Monocytes Absolute Auto 1.3 K/mm3 (0.1-0.6); Monocytes Percent Auto 12.9 % (2.6-8.5); Neutrophils Percent Auto 78.3 % (45.5-73.1); Platelet Count Result 208 k/mm3 (150-375); Red Blood Count 3.71 M/mm3 (4.2-5.4); Red Cell Distribution Width 12.7 % (11.5-14.5); White Blood Count 10.3 K/mm3 (4.5-10.0)
[2024-10-10 07:15] LABS: Alanine Aminotransferase 112 U/L (6-35); Albumin Level 3.1 g/dL (3.5-5.1); Alkaline Phosphatase 92 U/L (38-126); Anion Gap 1 mmol/L (4-12); Aspartate Amino Transferase 60 U/L (14-36); Bilirubin,Total 0.6 mg/dL (0.2-1.3); Blood Urea Nitrogen 13 mg/dL (7-17); Calcium 8.3 mg/dL (8.4-10.2); Carbon Dioxide 31 mmol/L (22-30); Chloride 106 mmol/L (98-107); Estimated CRCL calculation 38 ml/min; Estimated Glomerular Filt Rate > 60; Glucose 120 mg/dL (65-110); Potassium 4.2 mmol/L (3.4-5.0); Sodium 138 mmol/L (137-145)
[2024-10-10] MEDS: PANTOPRAZOLE 40 MG TABLET PO (09:25)
[2024-10-10] MEDS: ISOSORBIDE MONONITRATE 15 MG TAB.ER.24H PO (09:25)
[2024-10-10] MEDS: SENNA/DOCUSATE SODIUM TABLET 2 TAB PO ×2 (09:25→17:11)
[2024-10-10] MEDS: ASPIRIN 81 MG CHEWABLE TABLET PO (09:25)
[2024-10-10] MEDS: VALSARTAN 40 MG TABLET PO (09:25)
[2024-10-10] MEDS: ROSUVASTATIN 5 MG TABLET PO (09:25)
--- NOTE | 2024-10-10 14:57 | PM.IMPN ---
Progress Note: A&P Assessment and Plan (1) Atherosclerotic heart disease of [place] coronary artery without angina pectoris: Qualifiers: [place] vs. transplanted heart: [place] heart Qualified Code(s): I25.10 - Atherosclerotic heart disease of [place] coronary artery without angina pectoris Code(s): I25.10 - Atherosclerotic heart disease of [place] coronary artery without angina pectoris Status: Acute (2) Essential hypertension: Code(s): I10 - Essential (primary) hypertension Status: Acute (3) Closed hip fracture: Qualifiers: Encounter type: initial encounter Laterality: left Qualified Code(s): S72.002A - Fracture of unspecified part of neck of left femur, initial encounter for closed fracture Code(s): S72.009A - Fracture of unspecified part of neck of unspecified femur, initial encounter for closed fracture Status: Acute Plan 89-year-old female with a past medical history of coronary disease status post angioplasty in the , essential hypertension, hyperlipidemia, asthma, esophageal stricture, GERD and osteoporosis who presented to the ER via EMS after having a fall resulting in hip fracture. Hip fracture status post fall Patient has acute left intratrochanteric fracture due to ground level fall. Postop day 1. Status post incision femoral jessa left hip history of osteoporosis. Orthopedic surgery following Pain medications have been ordered with [place] and morphine as needed. Anemia Drop in hemoglobin from 14.7 to 11.6 Possible dilutional anemia Discontinued fluids Will trend H&H coronary artery disease Status post stent x1 Patient denies chest pain Continue home medication aspirin 81 mg daily p.o. HTN continue patient's home antihypertensives and 81 mg aspirin. Osteoporosis Patient would benefit from both calcium and vitamin-D supplementation as outpatient. She does take vitamin-D weekly but may benefit from some daily supplement as well. Subjective Date/time seen: 10/10/24 14:57 Interval history: Postop day 1. Status post incision femoral jessa left hip. Patient complains of soreness. Explained to the it is common to have soreness after the day of surgery. Patient has a drop in hemoglobin from 14.7 to 11.6. Possibly dilutional anemia. Will monitor H&H. Review of Systems Review of Systems: 12 systems were reviewed with pertinent positives and negatives per HPI. Except as documented in the HPI, all other systems were reviewed and are negative. Exam Narrative: GENERAL: Pleasant, in no acute distress. Well-nourished. - EYES: EOMI. Anicteric. - HENT: Moist mucous membranes. - LUNGS: Clear to auscultation bilaterally, no wheezing, rhonchi, or rales. - CARDIOVASCULAR: Regular rate and rhythm. No murmur. No JVD. - ABDOMEN: Soft, non-tender and non-distended. No palpable masses. - EXTREMITIES: No edema. Peripheral pulses 2+. Non-tender. Range of movement of left hip is restricted because of pain - NEUROLOGIC: No focal neurological deficits. CN II-XII grossly intact. - PSYCHIATRIC: Awake, Alert and oriented x 3. Appropriate mood and affect. - SKIN: No rashes or lesions. Warm. - LYMPH: No cervical lymphadenopathy. Const: Other: Well-developed, well-nourished, height weight proportionate, well groomed, no acute distress HENMT: Other: Head is normocephalic atraumatic, mucous membranes are tacky, upper dentures in place, patient reports her lower dentition is her natural teeth appear to be in fair condition Eyes: Other: Pupils are equal and reactive with evidence of bilateral lens implants, no conjunctival pallor, no scleral scleral icterus Neck: Other: No JVD, no lymphadenopathy Resp: Other: Clear to auscultation bilaterally, no increased work of breathing Cardio: Other: Regular rate, regular rhythm, 2+ bilateral radial pedal pulses GI: Other: Soft, nontender, nondistended, positive bowel sounds : Other: Pure wick catheter in place Skin: Other: No scleral icterus, no conjunctival pallor Neuro: Other: The patient is alert orient x4, speech is clear, hard of hearing, no localizing neurologic deficits noted during the course of conversation Extrem: Other: Left leg is externally rotated the hip in shortened, distal extremity is neurovascularly intact Psych: Other: Appropriate mood and affect, pleasant and cooperative, judgment and insight intact Objective Data Vital Signs Vital Signs: Vital Signs - 24 hr 10/09/24 15:47 10/09/24 17:41 10/09/24 17:55 Temperature 98.3 F 97.9 F Pulse Rate 84 79 76 Respiratory Rate 14 14 14 Blood Pressure 138/82 160/54 H 123/78 Pulse Oximetry 96 99 100 Oxygen Delivery Nasal Cannula Simple Face Mask Nasal Cannula Oxygen Flow Rate 2 6 2 10/09/24 18:10 10/09/24 18:25 10/09/24 18:46 Temperature 98.2 F 96.7 F L Pulse Rate 82 80 78 Respiratory Rate 16 16 20 Blood Pressure 153/87 H 153/50 H 117/82 Pulse Oximetry 97 97 96 Oxygen Delivery Nasal Cannula Nasal Cannula Oxygen Flow Rate 2 2 10/09/24 19:16 10/09/24 20:16 10/09/24 23:07 Temperature 97.5 F L 97.6 F 97.5 F L Pulse Rate 72 70 76 Respiratory Rate 18 18 18 Blood Pressure 129/48 L 125/54 L 113/84 Pulse Oximetry 94 97 100 Oxygen Delivery Oxygen Flow Rate 10/10/24 04:16 10/10/24 08:00 10/10/24 08:00 Temperature 97.6 F Pulse Rate 74 Respiratory Rate 18 Blood Pressure 116/82 Pulse Oximetry 97 94 91 Oxygen Delivery Nasal Cannula Nasal Cannula Oxygen Flow Rate 1 1 10/10/24 08:16 10/10/24 08:20 10/10/24 08:22 Temperature 98.5 F Pulse Rate 79 Respiratory Rate 16 Blood Pressure 145/53 H Pulse Oximetry 96 86 L 91 Oxygen Delivery Room Air Nasal Cannula Oxygen Flow Rate 1 10/10/24 09:29 10/10/24 10:36 10/10/24 12:16 Temperature 98.5 F Pulse Rate 70 Respiratory Rate 16 Blood Pressure 131/48 L Pulse Oximetry 98 Oxygen Delivery Nasal Cannula Nasal Cannula Oxygen Flow Rate 1 1 Intake/Output Intake/Output: Intake & Output 10/07/24 10/08/24 10/09/24 10/10/24 23:59 23:59 23:59 23:59 Intake Total 2360 2390 1080 Output Total 1450 1420 1100 Balance 910 970 -20 Meds/Results Medications: Active Medications Generic Name Dose Route Start Last Admin Trade Name Freq PRN Reason Stop Dose Admin Acetaminophen 650 mg 10/07/24 17:34 Acetaminophen 325 Mg Tablet PO Q4H PRN Mild Pain (1-3) or Fever Hydrocodone Bitart/Acetaminophen 1 tab 10/07/24 17:31 10/08/24 14:56 Hydrocodone/Acetaminophen (*Crx) 5-325 Mg Tablet PO 1 tab Q6H PRN Administration Pain Rated 4-6 Aspirin 81 mg 10/08/24 09:00 10/10/24 09:25 Aspirin 81 Mg Chewable Tablet PO 81 mg DAILY VERONIQUE Administration Diazepam 5 mg 10/09/24 18:31 Diazepam (*Crx) 5 Mg Tablet PO Q8H PRN Muscle Spasm Diclofenac Sodium 0 applic 10/07/24 21:36 Diclofenac Sodium 1% 100 Gm Gel (*Bkc) TOPICAL BID PRN back pain Diltiazem HCl 120 mg 10/07/24 22:15 10/09/24 21:27 Diltiazem Hcl Cd 120 Mg Cap.24hr PO 120 mg HS VERONIQUE Administration Docusate Sodium 100 mg 10/07/24 17:31 Docusate Sodium 100 Mg Capsule PO Q12H PRN Constipation Enoxaparin Sodium 40 mg 10/09/24 09:00 10/09/24 07:54 Enoxaparin 40 Mg/0.4 Ml Syringe SUB-Q Not Given DAILY [facility] Ergocalciferol 50,000 units 11/06/24 09:00 Ergocalciferol 50,000 Units Capsule BY MOUTH MONTHLY [facility] Hydromorphone HCl 1 mg 10/09/24 18:31 Hydromorphone Hcl Inj (*Crx) 1 Mg/Ml Syr IV PUSH Q2H PRN Breakthrough Pain Rated 7-10 or NPO Hydromorphone HCl 0.5 mg 10/09/24 18:31 Hydromorphone Hcl Inj (*Crx) 1 Mg/Ml Syr IV PUSH Q2H PRN Breakthrough Pain Rated 4-6 or NPO Hydroxyzine Pamoate 50 mg 10/09/24 18:31 Hydroxyzine Pamoate 25 Mg Capsule PO Q4H PRN Itching Cefazolin Sodium 2 gm in 50 mls @ 100 mls/hr 10/10/24 00:00 10/10/24 09:24 Ancef 2 Gm/D5w 50 Ml IVPB 10/10/24 16:29 100 mls/hr Q8H VERONIQUE Administration Ibuprofen 800 mg in 200 mls @ 400 mls/hr 10/09/24 18:31 Caldolor 800 Mg/200 Ml IVPB Q6H PRN Breakthrough Pain Rated 1-3 or NPO Isosorbide Mononitrate 15 mg 10/08/24 09:00 10/10/24 09:25 Isosorbide Mononitrate 15 Mg Tab.Er.24h PO 15 mg DAILY VERONIQUE Administration Naloxone HCl 0.1 mg 10/07/24 17:31 Naloxone Hcl 0.4 Mg/Ml Vial IV PUSH Q5MIN PRN Sedation Naloxone HCl 0.1 mg 10/09/24 18:31 Naloxone Hcl 0.4 Mg/Ml Vial IV PUSH Q2M PRN Opiate Reversal Ondansetron HCl 4 mg 10/09/24 18:31 Ondansetron Inj 4 Mg/2 Ml Vial IV PUSH Q4H PRN Nausea And Vomiting Pantoprazole Sodium 40 mg 10/08/24 09:00 10/10/24 09:25 Pantoprazole 40 Mg Tablet PO 40 mg QAM VERONIQUE Administration Polyethylene Glycol 17 gm 10/10/24 09:00 10/10/24 09:25 Polyethylene Glycol 3350 17 Gm Powd.Pack PO 17 gm QAM VERONIQUE Administration Rosuvastatin Calcium 5 mg 10/08/24 09:00 10/10/24 09:25 Rosuvastatin 5 Mg Tablet PO 5 mg DAILY VERONIQUE Administration Senna/Docusate Sodium 2 tab 10/10/24 09:00 10/10/24 09:25 Senna/Docusate Sodium Tablet PO 2 tab BID VERONIQUE Administration Valacyclovir HCl 500 mg 10/09/24 18:31 Valacyclovir Hcl 500 Mg Tablet PO Q12H PRN outbreak Valsartan 40 mg 10/08/24 09:00 10/10/24 09:25 Valsartan 40 Mg Tablet PO 40 mg DAILY VERONIQUE Administration Radiology Results: ITS Impressions Chest X-Ray 10/07/24 16:41 IMPRESSION: 1. No acute cardiopulmonary disease. Hip/Pelvis X-Ray 10/07/24 16:46 IMPRESSION: 1. Intertrochanteric fracture of proximal left femur. 2. Moderate osteoarthritis of the hips. Intraoperative X-Ray 10/09/24 17:40 IMPRESSION: 1. Near-anatomic alignment post internal fixation of an intratrochanteric fracture of the proximal left femur. See procedure note for further detail. Labs Labs: Laboratory Results - last 24 hr 10/10/24 06:15 WBC 10.3 H RBC 3.71 L Hgb 11.6 L Hct 35.8 L MCV 96.5 MCH 31.3 MCHC 32.4 RDW 12.7 Plt Count 208 MPV 10.0 Immature Gran % (Auto) 0.5 Neut % (Auto) 78.3 H Lymph % (Auto) 8.1 L [place] % (Auto) 12.9 H Eos % (Auto) 0.0 Baso % (Auto) 0.2 Lymph # (Auto) 0.83 L [place] # (Auto) 1.3 H Eos # (Auto) 0.0 Baso # (Auto) 0.0 Abs Immat Gran (auto) 0.05 H Absolute Neuts (auto) 8.0 H Absolute Nucleated RBC 0.000 Nucleated RBC % 0.0 Sodium 138 Potassium 4.2 Chloride 106 Carbon Dioxide 31 H Anion Gap 1 L BUN 13 Creatinine 0.70 Estim Creat Clear Calc 38 Estimated GFR > 60 Glucose 120 H Calcium 8.3 L Total Bilirubin 0.6 AST 60 H ALT 112 H Alkaline Phosphatase 92 Total Protein 6.0 L Albumin 3.1 L Quality VTE Prophylaxis VTE prophylaxis: pharmacologic ordered (Lovenox 40 mg subq daily to be started postop) Hospitalist MIPS Advance Care Plan I have confirmed that the patient's Advanced Care Plan is present, code status is documented, or surrogate decision maker is listed in patient medical record.: Yes Medication Reconciliation I have utilized all available resources to obtain, update and review the patients current medications (includes all prescriptions, OTC, herbals, cannabis, and nutritional supplements).: Yes
[2024-10-10] MEDS: ENOXAPARIN 40 MG/0.4 ML SYRINGE SUB-Q (17:11)
[2024-10-10] MEDS: polyethylene glycoL 3350 17 GM POWD.PACK PO (17:12)
[2024-10-10] MEDS: HYDROcodone/acetaminophen (*CRX) 5-325 MG TABLET 1 TAB PO (19:59)
[2024-10-10] MEDS: dilTIAZem HCL CD 120 MG CAP.24HR PO (21:07)
[2024-10-11 06:00] VITALS: BP 149/63; PULSE 69; RESP 16; TEMP 36.3; O2SAT 99
[2024-10-11 06:40] LABS: Hematocrit 32.7 % (37.0-47.0); Hemoglobin 10.7 g/dL (12.0-15.0); Mean Corpuscular HGB Conc 32.7 g/dl (32-36); Mean Corpuscular Hemoglobin 31.7 pg (26-34); Mean Corpuscular Volume 96.7 fl (80-100); Platelet Count Result 247 k/mm3 (150-375); Red Blood Count 3.38 M/mm3 (4.2-5.4); White Blood Count 9.3 K/mm3 (4.5-10.0)
[2024-10-11 07:03] LABS: Alanine Aminotransferase 50 U/L (6-35); Albumin Level 2.9 g/dL (3.5-5.1); Alkaline Phosphatase 83 U/L (38-126); Anion Gap -2 mmol/L (4-12); Aspartate Amino Transferase 37 U/L (14-36); Bilirubin,Total 0.7 mg/dL (0.2-1.3); Blood Urea Nitrogen 16 mg/dL (7-17); Calcium 8.3 mg/dL (8.4-10.2); Carbon Dioxide 34 mmol/L (22-30); Chloride 105 mmol/L (98-107); Estimated CRCL calculation 33 ml/min; Estimated Glomerular Filt Rate > 60; Glucose 95 mg/dL (65-110); Potassium 4.2 mmol/L (3.4-5.0); Sodium 137 mmol/L (137-145)
[2024-10-11] MEDS: ISOSORBIDE MONONITRATE 15 MG TAB.ER.24H PO (07:51)
[2024-10-11] MEDS: ASPIRIN 81 MG CHEWABLE TABLET PO (07:51)
[2024-10-11] MEDS: VALSARTAN 40 MG TABLET PO (07:51)
[2024-10-11] MEDS: ROSUVASTATIN 5 MG TABLET PO (07:51)
[2024-10-11] MEDS: PANTOPRAZOLE 40 MG TABLET PO (07:52)
[2024-10-11] MEDS: ENOXAPARIN 40 MG/0.4 ML SYRINGE SUB-Q (07:52)
[2024-10-11] MEDS: HYDROcodone/acetaminophen (*CRX) 5-325 MG TABLET 1 TAB PO ×2 (07:56→13:36)
[2024-10-11 08:00] VITALS: O2SAT 99
--- NOTE | 2024-10-11 10:49 | PCPTNOTE ---
Attempted to see patient for Physical Therapy this AM. Patient stated that she was feeling light headed and she requested to wait to eat lunch before participating in therapy. Therapist let patient know that she will come back after she eats lunch.
--- NOTE | 2024-10-11 14:43 | P.PNIM_ITS ---
Progress Note: A&P Assessment and Plan (1) Atherosclerotic heart disease of [place] coronary artery without angina pectoris: Qualifiers: [place] vs. transplanted heart: [place] heart Qualified Code(s): I25.10 - Atherosclerotic heart disease of [place] coronary artery without angina pectoris Code(s): I25.10 - Atherosclerotic heart disease of [place] coronary artery without angina pectoris Status: Acute (2) Essential hypertension: Code(s): I10 - Essential (primary) hypertension Status: Acute (3) Closed hip fracture: Qualifiers: Encounter type: initial encounter Laterality: left Qualified Code(s): S72.002A - Fracture of unspecified part of neck of left femur, initial encounter for closed fracture Code(s): S72.009A - Fracture of unspecified part of neck of unspecified femur, initial encounter for closed fracture Status: Acute Plan 89-year-old female with a past medical history of coronary disease status post angioplasty in the , essential hypertension, hyperlipidemia, asthma, esophageal stricture, GERD and osteoporosis who presented to the ER via EMS after having a fall resulting in hip fracture. Hip fracture status post fall Patient has acute left intratrochanteric fracture due to ground level fall. Postop day 2. Status post incision femoral jessa left hip history of osteoporosis. Orthopedic surgery following Pain medications have been ordered with [place] and morphine as needed. Anemia Monitor HgB Possible dilutional anemia/post surgical Discontinued fluids Will trend H&H coronary artery disease Status post stent x1 Patient denies chest pain Continue home medication aspirin 81 mg daily p.o. HTN continue patient's home antihypertensives and 81 mg aspirin. Osteoporosis Patient would benefit from both calcium and vitamin-D supplementation as outpatient. She does take vitamin-D weekly but may benefit from some daily supplement as well. Subjective Date/time seen: 10/11/24 14:43 Interval history: No acute event reported. Possible discharge tomorrow to rehab Review of Systems Review of Systems: 12 systems were reviewed with pertinent positives and negatives per HPI. Except as documented in the HPI, all other systems were reviewed and are negative. Exam Narrative: GENERAL: Pleasant, in no acute distress. Well-nourished. - EYES: EOMI. Anicteric. - HENT: Moist mucous membranes. - LUNGS: Clear to auscultation bilateral ly, no wheezing, rhonchi, or rales. - CARDIOVASCULAR: Regular rate and rhyth m. No murmur. No JVD. - ABDOMEN: Soft, non-tender and non-dist ended. No palpable masses. - EXTREMITIES: No edema. Peripheral puls es 2+. Non-tender. Range of movement of left hip is restricted because of pain - NEUROLOGIC: No focal neurological defi cits. CN II-XII grossly intact. - PSYCHIATRIC: Awake, Alert and oriented x 3. Appropriate mood and affect. - SKIN: No rashes or lesions. Warm. - LYMPH: No cervical lymphadenopathy. Const: Other: Well-developed, well-nourished, height weight proportionate, well groomed, no acute distress HENMT: Other: Head is normocephalic atraumatic, mucous membranes are tacky, upper dentures in place, patient reports her lower dentition is her natural teeth appear to be in fair condition Eyes: Other: Pupils are equal and reactive with evidence of bilateral lens implants, no conjunctival pallor, no scleral scleral icterus Neck: Other: No JVD, no lymphadenopathy Resp: Other: Clear to auscultation bilaterally, no increased work of breathing Cardio: Other: Regular rate, regular rhythm, 2+ bilateral radial pedal pulses GI: Other: Soft, nontender, nondistended, positive bowel sounds : Other: Pure wick catheter in place Skin: Other: No scleral icterus, no conjunctival pallor Neuro: Other: The patient is alert orient x4, speech is clear, hard of hearing, no localizing neurologic deficits noted during the course of conversation Extrem: Other: Left leg is externally rotated the hip in shortened, distal extremity is neurovascularly intact Psych: Other: Appropriate mood and affect, pleasant and cooperative, judgment and insight intact Objective Data Vital Signs Vital Signs: Vital Signs - 24 hr 10/10/24 16:16 10/10/24 20:16 10/11/24 06:00 Temperature 99.3 F 98.0 F 97.3 F L Pulse Rate 79 80 69 Respiratory Rate 16 18 16 Blood Pressure 148/49 H 121/57 L 149/63 H Pulse Oximetry 98 99 99 Oxygen Delivery Oxygen Flow Rate 10/11/24 08:00 Temperature Pulse Rate Respiratory Rate Blood Pressure Pulse Oximetry 99 Oxygen Delivery Nasal Cannula Oxygen Flow Rate 1 Intake/Output Intake/Output: Intake & Output 10/08/24 10/09/24 10/10/24 10/11/24 23:59 23:59 23:59 23:59 Intake Total 2360 2390 1370 950 Output Total 1450 1420 1750 650 Balance 910 970 -380 300 Meds/Results Medications: Active Medications Generic Name Dose Route Start Last Admin Trade Name Freq PRN Reason Stop Dose Admin Acetaminophen 650 mg 10/07/24 17:34 Acetaminophen 325 Mg Tablet PO Q4H PRN Mild Pain (1-3) or Fever Hydrocodone Bitart/Acetaminophen 1 tab 10/07/24 17:31 10/11/24 13:36 Hydrocodone/Acetaminophen (*Crx) 5-325 Mg Tablet PO 1 tab Q6H PRN Administration Pain Rated 4-6 Aspirin 81 mg 10/08/24 09:00 10/11/24 07:51 Aspirin 81 Mg Chewable Tablet PO 81 mg DAILY VERONIQUE Administration Diazepam 5 mg 10/09/24 18:31 Diazepam (*Crx) 5 Mg Tablet PO Q8H PRN Muscle Spasm Diclofenac Sodium 0 applic 10/07/24 21:36 Diclofenac Sodium 1% 100 Gm Gel (*Bkc) TOPICAL BID PRN back pain Diltiazem HCl 120 mg 10/07/24 22:15 10/10/24 21:07 Diltiazem Hcl Cd 120 Mg Cap.24hr PO 120 mg HS VERONIQUE Administration Docusate Sodium 100 mg 10/07/24 17:31 Docusate Sodium 100 Mg Capsule PO Q12H PRN Constipation Enoxaparin Sodium 40 mg 10/09/24 09:00 10/11/24 07:52 Enoxaparin 40 Mg/0.4 Ml Syringe SUB-Q 40 mg DAILY VERONIQUE Administration Ergocalciferol 50,000 units 11/06/24 09:00 Ergocalciferol 50,000 Units Capsule BY MOUTH [facility] Hydromorphone HCl 1 mg 10/09/24 18:31 Hydromorphone Hcl Inj (*Crx) 1 Mg/Ml Syr IV PUSH Q2H PRN Breakthrough Pain Rated 7-10 or NPO Hydromorphone HCl 0.5 mg 10/09/24 18:31 Hydromorphone Hcl Inj (*Crx) 1 Mg/Ml Syr IV PUSH Q2H PRN Breakthrough Pain Rated 4-6 or NPO Hydroxyzine Pamoate 50 mg 10/09/24 18:31 Hydroxyzine Pamoate 25 Mg Capsule PO Q4H PRN Itching Ibuprofen 800 mg in 200 mls @ 400 mls/hr 10/09/24 18:31 Caldolor 800 Mg/200 Ml IVPB Q6H PRN Breakthrough Pain Rated 1-3 or NPO Isosorbide Mononitrate 15 mg 10/08/24 09:00 10/11/24 07:51 Isosorbide Mononitrate 15 Mg Tab.Er.24h PO 15 mg DAILY VERONIQUE Administration Naloxone HCl 0.1 mg 10/07/24 17:31 Naloxone Hcl 0.4 Mg/Ml Vial IV PUSH Q5MIN PRN Sedation Naloxone HCl 0.1 mg 10/09/24 18:31 Naloxone Hcl 0.4 Mg/Ml Vial IV PUSH Q2M PRN Opiate Reversal Ondansetron HCl 4 mg 10/09/24 18:31 Ondansetron Inj 4 Mg/2 Ml Vial IV PUSH Q4H PRN Nausea And Vomiting Pantoprazole Sodium 40 mg 10/08/24 09:00 10/11/24 07:52 Pantoprazole 40 Mg Tablet PO 40 mg QAM VERONIQUE Administration Polyethylene Glycol 17 gm 10/10/24 09:00 10/11/24 07:52 Polyethylene Glycol 3350 17 Gm Powd.Pack PO Not Given QAM VERONIQUE Rosuvastatin Calcium 5 mg 10/08/24 09:00 10/11/24 07:51 Rosuvastatin 5 Mg Tablet PO 5 mg DAILY VERONIQUE Administration Senna/Docusate Sodium 2 tab 10/10/24 09:00 10/11/24 07:52 Senna/Docusate Sodium Tablet PO Not Given BID VERONIQUE Valacyclovir HCl 500 mg 10/09/24 18:31 Valacyclovir Hcl 500 Mg Tablet PO Q12H PRN outbreak Valsartan 40 mg 10/08/24 09:00 10/11/24 07:51 Valsartan 40 Mg Tablet PO 40 mg DAILY VERONIQUE Administration Radiology Results: ITS Impressions Chest X-Ray 10/07/24 16:41 IMPRESSION: 1. No acute cardiopulmonary disease. Hip/Pelvis X-Ray 10/07/24 16:46 IMPRESSION: 1. Intertrochanteric fracture of proximal left femur. 2. Moderate osteoarthritis of the hips. Intraoperative X-Ray 10/09/24 17:40 IMPRESSION: 1. Near-anatomic alignment post internal fixation of an intratrochanteric fracture of the proximal left femur. See procedure note for further detail. Labs Labs: Laboratory Results - last 24 hr 10/11/24 06:11 WBC 9.3 RBC 3.38 L Hgb 10.7 L Hct 32.7 L MCV 96.7 MCH 31.7 MCHC 32.7 RDW 13.0 Plt Count 247 MPV 10.0 Sodium 137 Potassium 4.2 Chloride 105 Carbon Dioxide 34 H Anion Gap -2 L BUN 16 Creatinine 0.80 Estim Creat Clear Calc 33 Estimated GFR > 60 Glucose 95 Calcium 8.3 L Total Bilirubin 0.7 AST 37 H ALT 50 H Alkaline Phosphatase 83 Total Protein 6.0 L Albumin 2.9 L Quality VTE Prophylaxis VTE prophylaxis: pharmacologic ordered (Lovenox 40 mg subq daily to be started postop) Hospitalist MIPS Advance Care Plan I have confirmed that the patient's Advanced Care Plan is present, code status is documented, or surrogate decision maker is listed in patient medical record.: Yes Medication Reconciliation I have utilized all available resources to obtain, update and review the patients current medications (includes all prescriptions, OTC, herbals, cannabis, and nutritional supplements).: Yes
[2024-10-11 16:00] VITALS: BP 113/70; PULSE 73; RESP 16; TEMP 37.1; O2SAT 97
[2024-10-11] MEDS: dilTIAZem HCL CD 120 MG CAP.24HR PO (20:36)
[2024-10-11 22:59] VITALS: BP 126/60; PULSE 76; RESP 18; TEMP 37.2; O2SAT 98
[2024-10-12 05:00] VITALS: BP 149/63; PULSE 77; RESP 14; TEMP 36.2; O2SAT 97
[2024-10-12 06:50] LABS: Hematocrit 32.5 % (37.0-47.0); Hemoglobin 10.7 g/dL (12.0-15.0); Mean Corpuscular HGB Conc 32.9 g/dl (32-36); Mean Corpuscular Hemoglobin 31.8 pg (26-34); Mean Corpuscular Volume 96.4 fl (80-100); Mean Platelet Volume 9.6 fl (7.4-10.4); Platelet Count Result 254 k/mm3 (150-375); Red Blood Count 3.37 M/mm3 (4.2-5.4); White Blood Count 8.8 K/mm3 (4.5-10.0)
[2024-10-12 07:05] LABS: Alanine Aminotransferase 34 U/L (6-35); Albumin Level 2.9 g/dL (3.5-5.1); Alkaline Phosphatase 90 U/L (38-126); Anion Gap 0 mmol/L (4-12); Aspartate Amino Transferase 29 U/L (14-36); Bilirubin,Total 0.8 mg/dL (0.2-1.3); Blood Urea Nitrogen 16 mg/dL (7-17); Calcium 8.3 mg/dL (8.4-10.2); Carbon Dioxide 33 mmol/L (22-30); Chloride 102 mmol/L (98-107); Estimated CRCL calculation 44 ml/min; Estimated Glomerular Filt Rate > 60; Glucose 97 mg/dL (65-110); Potassium 3.9 mmol/L (3.4-5.0); Sodium 135 mmol/L (137-145)
[2024-10-12] MEDS: ROSUVASTATIN 5 MG TABLET PO (09:08)
[2024-10-12] MEDS: HYDROcodone/acetaminophen (*CRX) 5-325 MG TABLET 1 TAB PO ×2 (09:08→16:07)
[2024-10-12] MEDS: ASPIRIN 81 MG CHEWABLE TABLET PO (09:08)
[2024-10-12] MEDS: polyethylene glycoL 3350 17 GM POWD.PACK PO (09:08)
[2024-10-12] MEDS: VALSARTAN 40 MG TABLET PO (09:08)
[2024-10-12] MEDS: SENNA/DOCUSATE SODIUM TABLET 2 TAB PO (09:08)
[2024-10-12] MEDS: PANTOPRAZOLE 40 MG TABLET PO (09:08)
[2024-10-12] MEDS: ISOSORBIDE MONONITRATE 15 MG TAB.ER.24H PO (09:08)
[2024-10-12] MEDS: ENOXAPARIN 40 MG/0.4 ML SYRINGE SUB-Q (09:09)
--- NOTE | 2024-10-12 12:15 | PM.PNORT ---
Progress Note: A&P Assessment and Plan (1) Intertrochanteric fracture of left femur: Qualifiers: Encounter type: initial encounter Fracture alignment: nondisplaced Fracture type: closed Qualified Code(s): S72.145A - Nondisplaced intertrochanteric fracture of left femur, initial encounter for closed fracture Code(s): S72.142A - Displaced intertrochanteric fracture of left femur, initial encounter for closed fracture Status: Acute Assessment and Plan: POD #3: INSERTION FEMORAL MAYRA LEFT HIP Continue PT/OT. WBAT. Walker. HIGH FALL RISK. Continue pain control. Ice Hip. Protect skin. DVT prophylaxis with Lovenox. Change to Aspirin 325 mg PO BID at d/c. SCDs. Incentive Spirometry Use reviewed. Monitor Dressing. Change prior to discharge. Bowel Regimen. Dispo: [facility] pending progress with PT/OT (2) Closed hip fracture: Qualifiers: Encounter type: initial encounter Laterality: left Qualified Code(s): S72.002A - Fracture of unspecified part of neck of left femur, initial encounter for closed fracture Code(s): S72.009A - Fracture of unspecified part of neck of unspecified femur, initial encounter for closed fracture Status: Acute Subjective Subjective Date/Time Seen: 10/12/24 12:15 Post Op day: 3 Interval history: POD #3: INSERTION FEMORAL MAYRA LEFT HIP Patient doing well. Pain well controlled. Working with PT/OT. Ready for d/c to [facility]. Review of Systems Review of Systems: All systems reviewed & are unremarkable except as noted in HPI and below Constitutional: Constitutional: Denies chills, Denies fatigue, Denies fever(s), Denies night sweats and Denies weakness Cardiovascular: Cardiovascular: Denies chest pain, Denies lightheadedness, Denies palpitations and Denies dyspnea Respiratory: Respiratory: Denies cough, Denies dyspnea and Denies wheezing Gastrointestinal: Gastrointestinal: Denies abdominal pain, Denies diarrhea, Denies nausea and Denies vomiting Musculoskeletal: Musculoskeletal: Reports arthralgias (left hip ), Reports joint swelling (left hip ) and Denies numbness Neurologic: Denies numbness and Denies weakness Endocrine: Endocrine: Denies fatigue and Denies palpitations Allergic/Immunologic: Allergic/Immunologic: Denies wheezing Exam Const: General: comfortable and no acute distress Orientation/consciousness: patient oriented x3 Limitations: no limitations Resp: Effort & Inspection: normal respiratory effort Cardio: Rate: regular rate Rhythm: regular rhythm GI: Inspection: non-distended Skin: General skin exam: normal color and wounds noted (incision left hip C/D/I ) Wounds: wounds noted (incision left hip C/D/I ) Neuro: General: patient oriented x3 Extrem: Left lower extremity: hip/thigh Details: tenderness Location: of the hip Location: laterally and anteriorly, swelling (thigh soft ) Location: of the hip (lateral. ), abnormal ROM (limitations with internal/external rotation and flexion/extension due to recent surgical intervention ) and other (incision lateral hip c/d/i. ), knee Details: normal to inspection and normal ROM; no tenderness and no swelling, lower leg (Negative Diaz's Sign ) Details: no edema, ankle (+ankle dorsiflexion/plantarflexion ) Details: normal to inspection, no edema and normal ROM; no tenderness, no swelling and no warmth and foot Details: normal capillary refill, toes with normal ROM, vascular exam Details: dorsalis pedis pulse present and motor-sensory exam light-touch normal in all toes; no tenderness, no ecchymosis and no crepitus Psych: Mental Status: mental status grossly normal Affect: normal affect Objective Data Vital Signs Vital Signs: Vital Signs - 24 hr 10/11/24 16:00 10/11/24 22:59 10/12/24 05:00 Temperature 37.1 C 37.2 C 36.2 C L Pulse Rate 73 76 77 Respiratory Rate 16 18 14 Blood Pressure 113/70 126/60 149/63 H Pulse Oximetry 97 98 97 Intake/Output Intake/Output: Intake & Output 10/09/24 10/10/24 10/11/24 10/12/24 23:59 23:59 23:59 23:59 Intake Total 2390 1370 1190 670 Output Total 1420 1700 177 5484 Balance 970 -380 540 -1130 Meds/Results Medications: Active Medications Generic Name Dose Route Start Last Admin Trade Name Freq PRN Reason Stop Dose Admin Acetaminophen 650 mg 10/07/24 17:34 Acetaminophen 325 Mg Tablet PO Q4H PRN Mild Pain (1-3) or Fever Hydrocodone Bitart/Acetaminophen 1 tab 10/07/24 17:31 10/12/24 09:08 Hydrocodone/Acetaminophen (*Crx) 5-325 Mg Tablet PO 1 tab Q6H PRN Administration Pain Rated 4-6 Aspirin 81 mg 10/08/24 09:00 10/12/24 09:08 Aspirin 81 Mg Chewable Tablet PO 81 mg DAILY VERONIQUE Administration Diazepam 5 mg 10/09/24 18:31 Diazepam (*Crx) 5 Mg Tablet PO Q8H PRN Muscle Spasm Diclofenac Sodium 0 applic 10/07/24 21:36 Diclofenac Sodium 1% 100 Gm Gel (*Bkc) TOPICAL BID PRN back pain Diltiazem HCl 120 mg 10/07/24 22:15 10/11/24 20:36 Diltiazem Hcl Cd 120 Mg Cap.24hr PO 120 mg HS [facility] Administration Docusate Sodium 100 mg 10/07/24 17:31 Docusate Sodium 100 Mg Capsule PO Q12H PRN Constipation Enoxaparin Sodium 40 mg 10/09/24 09:00 10/12/24 09:09 Enoxaparin 40 Mg/0.4 Ml Syringe SUB-Q 40 mg DAILY [facility] Administration Ergocalciferol 50,000 units 11/06/24 09:00 Ergocalciferol 50,000 Units Capsule BY MOUTH MONTHLY [facility] Hydromorphone HCl 1 mg 10/09/24 18:31 Hydromorphone Hcl Inj (*Crx) 1 Mg/Ml Syr IV PUSH Q2H PRN Breakthrough Pain Rated 7-10 or NPO Hydromorphone HCl 0.5 mg 10/09/24 18:31 Hydromorphone Hcl Inj (*Crx) 1 Mg/Ml Syr IV PUSH Q2H PRN Breakthrough Pain Rated 4-6 or NPO Hydroxyzine Pamoate 50 mg 10/09/24 18:31 Hydroxyzine Pamoate 25 Mg Capsule PO Q4H PRN Itching Ibuprofen 800 mg in 200 mls @ 400 mls/hr 10/09/24 18:31 Caldolor 800 Mg/200 Ml IVPB Q6H PRN Breakthrough Pain Rated 1-3 or NPO Isosorbide Mononitrate 15 mg 10/08/24 09:00 10/12/24 09:08 Isosorbide Mononitrate 15 Mg Tab.Er.24h PO 15 mg DAILY VERONIQUE Administration Naloxone HCl 0.1 mg 10/07/24 17:31 Naloxone Hcl 0.4 Mg/Ml Vial IV PUSH Q5MIN PRN Sedation Naloxone HCl 0.1 mg 10/09/24 18:31 Naloxone Hcl 0.4 Mg/Ml Vial IV PUSH Q2M PRN Opiate Reversal Ondansetron HCl 4 mg 10/09/24 18:31 Ondansetron Inj 4 Mg/2 Ml Vial IV PUSH Q4H PRN Nausea And Vomiting Pantoprazole Sodium 40 mg 10/08/24 09:00 10/12/24 09:08 Pantoprazole 40 Mg Tablet PO 40 mg QAM VERONIQUE Administration Polyethylene Glycol 17 gm 10/10/24 09:00 10/12/24 09:08 Polyethylene Glycol 3350 17 Gm Powd.Pack PO 17 gm QAM VERONIQUE Administration Rosuvastatin Calcium 5 mg 10/08/24 09:00 10/12/24 09:08 Rosuvastatin 5 Mg Tablet PO 5 mg DAILY VERONIQUE Administration Senna/Docusate Sodium 2 tab 10/10/24 09:00 10/12/24 09:08 Senna/Docusate Sodium Tablet PO 2 tab BID VERONIQUE Administration Valacyclovir HCl 500 mg 10/09/24 18:31 Valacyclovir Hcl 500 Mg Tablet PO Q12H PRN outbreak Valsartan 40 mg 10/08/24 09:00 10/12/24 09:08 Valsartan 40 Mg Tablet PO 40 mg DAILY VERONIQUE Administration Radiology Results: ITS Impressions Hip/Pelvis X-Ray 10/07/24 16:46 IMPRESSION: 1. Intertrochanteric fracture of proximal left femur. 2. Moderate osteoarthritis of the hips. Intraoperative X-Ray 10/09/24 17:40 IMPRESSION: 1. Near-anatomic alignment post internal fixation of an intratrochanteric fracture of the proximal left femur. See procedure note for further detail. Labs Labs: Laboratory Results - last 24 hr 10/12/24 06:30 WBC 8.8 RBC 3.37 L Hgb 10.7 L Hct 32.5 L MCV 96.4 MCH 31.8 MCHC 32.9 RDW 13.0 Plt Count 254 MPV 9.6 Sodium 135 L Potassium 3.9 Chloride 102 Carbon Dioxide 33 H Anion Gap 0 L BUN 16 Creatinine 0.60 L Estim Creat Clear Calc 44 Estimated GFR > 60 Glucose 97 Calcium 8.3 L Total Bilirubin 0.8 AST 29 ALT 34 Alkaline Phosphatase 90 Total Protein 5.0 L Albumin 2.9 L
--- NOTE | 2024-10-12 14:22 | P.DS_ITS ---
DS: Admitting Diagnosis Discharge Date 10/12/2024 Admitting Diagnosis Fell while getting out of the car, left hip pain DS: Discharge Diagnosis Discharge Diagnosis (1) Atherosclerotic heart disease of [place] coronary artery without angina pectoris: Qualifiers: [place] vs. transplanted heart: [place] heart Qualified Code(s): I25.10 - Atherosclerotic heart disease of [place] coronary artery without angina pectoris Code(s): I25.10 - Atherosclerotic heart disease of [place] coronary artery without angina pectoris Status: Acute (2) Essential hypertension: Code(s): I10 - Essential (primary) hypertension Status: Acute (3) Closed hip fracture: Qualifiers: Encounter type: initial encounter Laterality: left Qualified Code(s): S72.002A - Fracture of unspecified part of neck of left femur, initial encounter for closed fracture Code(s): S72.009A - Fracture of unspecified part of neck of unspecified femur, initial encounter for closed fracture Status: Acute Plan Hip fracture status post fall Patient has acute left intratrochanteric fracture due to ground level fall. Postop day 3. Status post incision femoral jessa left hip history of osteoporosis. Orthopedic surgery following Pt ok to dc to SNF today Anemia hb is 10 on dc stable coronary artery disease Status post stent x1 Continue home medication aspirin 81 mg daily p.o. HTN continue patient's home antihypertensives and 81 mg aspirin. Osteoporosis Patient would benefit from both calcium and vitamin-D supplementation as outpatient. She does take vitamin-D weekly but may benefit from some daily supplement as well. DS: Summary Hospital Course Hospital Course: 89-year-old female with a past medical history of coronary disease status post angioplasty in the 1980s, essential hypertension, hyperlipidemia, asthma, esophageal stricture, GERD and osteoporosis who presented to the ER via EMS after having a fall resulting in hip fracture. Postop day 3. Status post incision femoral jessa left hip ok to dc to Snf for further rehab Time Spent with Patient Time attestation: Total time spent providing and/or coordinating discharge services:45 minutes on day of dc Exam Narrative: GENERAL: Pleasant, in no acute distress. Well-nourished. - EYES: EOMI. Anicteric. - HENT: Moist mucous membranes. - LUNGS: Clear to auscultation bilateral ly, no wheezing, rhonchi, or rales. - CARDIOVASCULAR: Regular rate and rhyth m. No murmur. No JVD. - ABDOMEN: Soft, non-tender and non-dist ended. No palpable masses. - EXTREMITIES: No edema. Peripheral puls es 2+. Non-tender. Range of movement of left hip is restricted because of pain - NEUROLOGIC: No focal neurological defi cits. CN II-XII grossly intact. - PSYCHIATRIC: Awake, Alert and oriented x 3. Appropriate mood and affect. - SKIN: No rashes or lesions. Warm. - LYMPH: No cervical lymphadenopathy. DS: Data Data Completed and Pending Labs on day of discharge: Labs from last 24 hours 10/12/24 06:30 WBC 8.8 RBC 3.37 L Hgb 10.7 L Hct 32.5 L MCV 96.4 MCH 31.8 MCHC 32.9 RDW 13.0 Plt Count 254 MPV 9.6 Sodium 135 L Potassium 3.9 Chloride 102 Carbon Dioxide 33 H Anion Gap 0 L BUN 16 Creatinine 0.60 L Estim Creat Clear Calc 44 Estimated GFR > 60 Glucose 97 Calcium 8.3 L Total Bilirubin 0.8 AST 29 ALT 34 Alkaline Phosphatase 90 Total Protein 5.0 L Albumin 2.9 L Discharge Plan Discharge Attending physician on discharge: Tomeka Agosto Consulting providers: Charles Corona Discharging Clinician: Tomeka Agosto Anticipated Discharge Date/Time: 10/12/24 14:21 Patient Disposition: SNF Activity: may shower, no driving and follow weight bearing status Diet: as tolerated Wound Care Instructions: follow printed instructions Discharge Instructions: Postoperative Hip Fracture Instructions Dr. Charles Corona [phone] * Dressing to be changed daily with an island dressing beginning on post op day #2. May stop dressing changes at post op day #14. Matt to be removed on post op day #14 * Weight bearing: Weight bearing as tolerated. * You may shower with your dressing but do not submerge in a bath tub. * Do not drive or operate machinery until you are released by your surgeon. * Do not walk without a walker for any reason until you are released by your surgeon. * DVT prophylaxis x28 days post op. * Continue to apply ice to the hip intermittently for additional pain relief. Protect your skin with a towel or pillow case. * Continue to follow strict hip fracture precautions. * Please contact our office with any questions/concerns regarding your hip at [phone]. * Follow up appointment instructions indicated below. Patient Language: [place] Irish Stand Alone Forms: General Discharge Information Follow-up/Referrals: Charles Corona MD [Physician] - 11/27/24 9:30 am Discharge Medications: New hydrocodone-acetaminophen 5-325 mg Tablet 1 tablet PO Q6H PRN (Reason: pain) Qty: 40 0RF aspirin 325 mg tablet 325 mg PO BID 28 Days Qty: 56 0RF sennosides-docusate sodium [Senokot-S] 8.6-50 mg Tablet 2 tab PO BID Qty: 60 0RF Continued diclofenac sodium [Voltaren Arthritis Pain] 1 % Gel 2 g TOPICAL BID PRN (Reason: back pain) Rx Instructions: apply to back as needed for pain isosorbide mononitrate 30 mg tablet extended release 24 hr 15 mg PO DAILY rosuvastatin 5 mg tablet 5 mg PO DAILY Qty: 30 0RF acetaminophen [Tylenol Arthritis Pain] 650 mg tablet extended release 650 mg PO Q8H PRN (Reason: pain) Qty: 10 0RF valacyclovir [Valtrex] 500 mg tablet 500 mg PO Q12H PRN (Reason: outbreak) 3 Days Qty: 24 1RF ergocalciferol (vitamin D2) 1,250 mcg (50,000 unit) capsule See Rx Instructions .ROUTE .COMPLEX Qty: 3 2RF Dose Instruction: TAKE 1 CAPSULE BY MOUTH ONCE MONTHLY Rx Instructions: TAKE 1 CAPSULE BY MOUTH ONCE MONTHLY omeprazole 20 mg capsule,delayed release(DR/EC) 20 mg PO DAILY Qty: 90 2RF Rx Instructions: BEFORE A MEAL valsartan 40 mg tablet 40 mg PO DAILY Qty: 90 0RF Changed diltiazem HCl 120 mg capsule,extended release 24hr 120 mg PO Q24H Qty: 30 0RF Rx Instructions: TAKE 1 CAPSULE BY MOUTH EVERY DAY Held aspirin 81 mg tablet,chewable 81 mg PO DAILY Hold Instructions: Resume on 11/09/24. Resume once finished with the full strength aspirin. Date of admission: 10/07/24 17:34 Primary Care Provider: Jose Luis Rod Admitting Provider: Uriel Joseph Attending physician on admission: Uriel Joseph Condition: Stable
[2024-10-12 16:00] VITALS: BP 108/52; PULSE 70; RESP 16; TEMP 36.4; O2SAT 94
[2024-10-12] MEDS: diphenhydrAMINE HCl CAP 25 MG CAPSULE PO (19:25)
[2024-10-12 20:12] VITALS: BP 127/56; PULSE 96; RESP 16; TEMP 36.8; O2SAT 94
[2024-10-12] MEDS: dilTIAZem HCL CD 120 MG CAP.24HR PO (20:47)
--- NOTE | 2024-10-12 20:47 | PC.NURSE ---
Report called and faxed to [facility], spoke to Kaitlyn, family updated on Patient's discharge. Patient alert and oriented able to void spontaneously,. No c/o pain at this time. no further questions. Belongings packed up and waiting for transport via EMS. Passed report to RAMIRO Neil.
--- NOTE | 2024-10-12 21:14 | PC.NURSE ---
Pt discharged to [facility] per ambulance. Report called by shift nurse and given to EMS. Pt's family notified. Iv and lazo both removed before transport.
== END 2024-10-12 21:15 | DRG 481 ==
LOC: ANHED 15:52 → ANH3MEDSUR 10-08 08:50
PROVIDERS: General Practice; Orthopaedic Surgery; Admitting Provider Hospitalist; Emergency Provider Family Medicine; PCP Family Medicine; Visit Provider Family Medicine
PROC: 0QS734Z Reposition Left Upper Femur with Internal Fixation Device, Percutaneous Approach (ICD-10-PCS; CPT 27245; principal; 2024-10-09 17:00)
DX: S72.142A Displaced intertrochanteric fracture of left femur, initial encounter for closed fracture (principal); D62 Acute posthemorrhagic anemia; I25.10 Atherosclerotic heart disease of native coronary artery without angina pectoris; I11.9 Hypertensive heart disease without heart failure; J45.909 Unspecified asthma, uncomplicated; E55.9 Vitamin D deficiency, unspecified; E78.5 Hyperlipidemia, unspecified; K21.9 Gastro-esophageal reflux disease without esophagitis; K22.2 Esophageal obstruction; M81.0 Age-related osteoporosis without current pathological fracture; M54.16 Radiculopathy, lumbar region; H90.6 Mixed conductive and sensorineural hearing loss, bilateral; R42 Dizziness and giddiness; W19.XXXA Unspecified fall, initial encounter; Z96.651 Presence of right artificial knee joint; Z95.5 Presence of coronary angioplasty implant and graft; Z79.82 Long term (current) use of aspirin; Z87.891 Personal history of nicotine dependence
CPT/HCPCS: 36415; 71045; 73502; 80048; 80053; 85025; 85027; 85610; 93005; 96374; 96375; 96376; 97110; 97161; 97165; 97530; 97535; 99199; 99285; A9270; C1713; J0690; J1650; J1885; J2270; J2405; J3010; J7030; J7120

== ENCOUNTER 2024-11-08 01:28 | Inpatient (IN) | payer MEDICARE, OTHER, SELFPAY ==
[2024-11-08] VITALS (8 sets, daily range): BP systolic 118–149; BP diastolic 55–80; PULSE 77–94; RESP 16–20; TEMP 36.1–36.7; O2SAT 91–98; BMI 24.5
--- NOTE | ~2024-11-08 | XR_ITS ---
CHEST RADIOGRAPH CLINICAL HISTORY: N/V . COMPARISON: 10/12/2024 TECHNIQUE: Single portable view of the chest. Examination is limited by patient rotation (towards the patient's left). FINDINGS The superior mediastinum is widened, likely secondary to patient rotation rather than discrete pathol ogy. The remainder of the cardiomediastinal silhouette is otherwise unremarkable. The lungs are clear. Visualized osseous structures and soft tissues are unremarkable. IMPRESSION: No focal infiltrate or effusion. Reviewed, dictated and finalized at location A. RNATIONAL TRADE TEACHER
--- NOTE | ~2024-11-08 | XR_ITS ---
EXAM: XR abdomen gastric tube insert DATE: 11/08/2024 20:29 HISTORY: NG placement confirmation . COMPARISON: X-ray chest and CT abdomen pelvis same date. FINDINGS: NG tube, tip projects over the stomach, side port distal to the GE junction. Mild right co stophrenic angle blunting. Dilated small bowel loops in the left upper quadrant. Severe degenerative change in the spine. IMPRESSION: NG tube, in good position. Reviewed, dictated and finalized at location K. CING SUPERVISOR IMPRESSION: NG tube, in good position.
--- NOTE | ~2024-11-08 | CT_ITS ---
CLINICAL INDICATION: Abdominal pain COMPARISON: None. TECHNIQUE: Multiple contiguous axial images of the abdomen and pelvis were performed following the ad ministration of with 100 mL Omnipaque-350 intravenous contrast The dose-length product (DLP) was 649.42 mGy-cm. Automated exposure control and iterative reconstruction technique were employed. FINDINGS/OBSERVATIONS: Visualized lower thorax: The bilateral lung bases are clear. The heart is of normal size, without pericardial effusion. Moderate hiatal hernia is present. Liver: The liver enhances homogeneously and is not enlarged. Gallbladder and biliary system: The gallbladder is minimally distended, and otherwise unremarkable. Pancreas: The pancreas enhances homogeneously and demonstrates fatty atrophy. Spleen: The spleen enhances homogeneously and is not enlarged measuring 8 cm in longitudinal dimension. Kidneys: Scarring and atrophy within the lower pole of the left kidney. The remainder of the bilateral kidneys otherwise enhance symmetrically without hydronephrosis or blake l calculi. Adrenal glands: Unremarkable. Gastrointestinal tract: Mural thickening with hyperemia of multiple loops of fluid-filled small bowel and distal stomach with compression in the colon. These findings are suggestive of a partial small bowel obstruction. Appendix: The appendix is not definitively visualized. However, no pericecal inflammatory change is identified suggest the presence of acute appendicitis. Vasculature: Unremarkable. Densely calcified atherosclerotic disease. Lymph nodes: No pathologically enlarged or morphologically suspicious lymph nodes within the retroperitoneum or at the root of the mesentery. Pelvic structures: The bladder is distended, and otherwise unremarkable. Within the left hemipelvis is a focus of decreased attenuation with a dense rim calcifications (not a n acute finding) measuring 44 x 49 x 50 mm, possibly representing a dermoid cyst. The uterus is either surgically absent or atrophic. Body wall and musculoskeletal: Severe degenerative disease within the lumbosacral spine, with osteophyte formation, disc space narro wing, endplate changes, vacuum phenomena and dextro scoliotic curvature. Left femoral jessa and screw fixation. IMPRESSION: Findings suggesting a partial small bowel obstruction within the mid to distal jejunum, as detailed a ambrose. Findings within the left hemipelvis for which a dermoid cyst is suspected. Reviewed, dictated and finalized at location A. SALES CONSULTANT IMPRESSION: Findings suggesting a partial small bowel obstruction within the mid to distal jejunum, as detailed above. Findings within the left hemipelvis for which a dermoid cyst is suspected.
[2024-11-08 01:46] LABS: Basophils Absolute Auto 0.1 K/mm3 (0.0-0.1); Basophils Percent Auto 0.3 % (0.2-1.2); Eosinophils Absolute Auto 0.1 K/mm3 (0-0.3); Eosinophils Percent Auto 0.8 % (0-4.4); Hematocrit 40.7 % (37.0-47.0); Immature Granulocyte Percent A 0.6 % (0-0.5); Lymphocytes Absolute Auto 0.47 K/mm3 (0.9-3.2); Lymphocytes Percent Auto 2.6 % (18.3-44.2); Mean Corpuscular HGB Conc 31.9 g/dl (32-36); Mean Corpuscular Volume 96.9 fl (80-100); Mean Platelet Volume 8.7 fl (7.4-10.4); Monocytes Absolute Auto 1.1 K/mm3 (0.1-0.6); Monocytes Percent Auto 5.9 % (2.6-8.5); Neutrophils Absolute Auto 16.3 K/mm3 (1.3-6.7); Neutrophils Percent Auto 89.8 % (45.5-73.1); Platelet Count Result 456 k/mm3 (150-375); Red Cell Distribution Width 14.1 % (11.5-14.5); White Blood Count 18.1 K/mm3 (4.5-10.0)
[2024-11-08] MEDS: ONDANSETRON INJ 4 MG/2 ML VIAL IV PUSH ×2 (02:00→03:02)
[2024-11-08] MEDS: SODIUM CHLORIDE 0.9% IV 1,000 ML 999 ML IV CONT ×2 (02:00→06:28)
[2024-11-08 02:08] LABS: Alanine Aminotransferase 19 U/L (6-35); Albumin Level 3.8 g/dL (3.5-5.1); Alkaline Phosphatase 174 U/L (38-126); Anion Gap 9 mmol/L (4-12); Aspartate Amino Transferase 36 U/L (14-36); Bilirubin,Total 0.8 mg/dL (0.2-1.3); Blood Urea Nitrogen 21 mg/dL (7-17); Carbon Dioxide 26 mmol/L (22-30); Chloride 99 mmol/L (98-107); Estimated CRCL calculation 46 ml/min; Estimated Glomerular Filt Rate > 60; Glucose 166 mg/dL (65-110); Lipase 51 U/L (23-300); Potassium 4.5 mmol/L (3.4-5.0); Sodium 134 mmol/L (137-145)
[2024-11-08 02:12] LABS: Add Urine Microscopic? YES; Appearance Urine Cloudy (Clear); Bacteria Urine 4+ /hpf; Bilirubin Urine Negative (Negative); Blood Urine Trace (Negative); Budding Yeast Urine Present /hpf; Color Urine Yellow (Yellow); Glucose Urine UA Negative (Negative); Ketones Urine Trace mg/dL (Negative); Leukocyte Esterase Ur 2+ LEU/UL (Negative); Need Manual Microscopic Reviewed; Nitrate Urine Positive (Negative); Non Pathogenic Casts 0-2; Protein Urine 1+ mg/dL (Negative); RBC Urine 0-2 /hpf (0-2); Specific Grav Ur 1.018 (1.001-1.035); Squamous Epithelial Cell Urine None Seen /hpf (Few); Urobilinogen Urine 0.2 mg/dL (<2.0); WBC Urine >100 /hpf (0-3); pH Urine 5.5 (5.0-9.0)
[2024-11-08 03:37] LABS: Influenza A QL RT-PCR Negative (Negative); Influenza B QL RT-PCR Negative (Negative); RSV RNA, RT-PCR Negative (Negative); SARS-CoV-2 RNA PCR Negative (Negative)
[2024-11-08] MEDS: FAMOTIDINE 20 MG/2 ML VIAL IV PUSH (04:13)
--- NOTE | 2024-11-08 05:01 | ED.GENADULT ---
HPI - General Adult General Chief complaint: Nausea/Vomiting/Diarrhea Stated complaint: N/V since 2100 Time Seen by Provider: 11/08/24 01:33 History of Present Illness HPI narrative: This is an 89-year-old female presenting ED a chief nausea vomiting and diarrhea. She has had symptoms for the last 2 days. She denies fevers chills chest pain difficulty breathing abdominal pain. Patient lives alone and is feeling very weak. she sustained a femoral neck fracture in September and was discharged rehab on October 23. Her mobility has still not returned to baseline. Related Data Home Medications ?Medication ?Instructions ?Recorded ?Confirmed ?Last Taken ?Type isosorbide mononitrate 30 mg 15 mg PO DAILY 08/04/20 10/12/24 10/12/24 History tablet,extended release 24 hr diclofenac sodium 1 % topical gel 2 g topical BID PRN back pain 07/01/21 10/12/24 10/06/24 08:00 History (Voltaren Arthritis Pain) 2 g Allergies Allergy/AdvReac Type Severity Reaction Status Date / Time atorvastatin AdvReac Mild Cramping Verified 11/08/24 06:18 of the Muscles oral steriods Allergy Intermediate Hives Uncoded 11/08/24 01:35 [facility] Past Medical History Medical History Osteoporosis CAD (coronary artery disease) Intertrochanteric fracture of left femur Atherosclerotic heart disease of [place] coronary artery without angina pectoris Lumbar radiculopathy Mixed conductive and sensorineural hearing loss of both ears With bilateral hearing aids Vertigo Vitamin D deficiency Asthma Essential hypertension Esophageal stricture HSV-2 (herpes simplex virus 2) infection Chronic GERD HLD (hyperlipidemia) Hypertensive heart disease without congestive heart failure Surgical History Surgical History History of coronary artery stent placement History of meniscectomy of left knee (02/2013) Performed by Dr. Charles Corona History of total right knee replacement History of tonsillectomy History of coronary angioplasty (~1987) [facility] Status post cataract extraction of both eyes with insertion of intraocular lens (~2010) History of hysterectomy History of appendectomy Family History Family History Mother Hypertension Cerebrovascular accident Family history of diabetes mellitus in first degree relative Patient's mother is Sibling Asthma Family history of malignant neoplasm Family history of diabetes mellitus in first degree relative Patient's brother is Family history of kidney disease Father Family history of diabetes mellitus in first degree relative Patient's father is Hypertension Family history of coronary artery disease Other Diabetes mellitus Family history of arthritis Social History Social History Social History: Patient lives with her of over 50 years. She ambulates with a cane. She is a former smoker and smoked up to 1 pack cigarettes per day but quit in 1999. She smoked about a pack per day for 40-45 years. She denies any history of alcohol use or illicit substance use. Code status: She states that she does not believe she would want CPR but she does have an advanced directive in place. She will defer decision to her . Surrogate decision maker: Curtis () Smoking packs per day: 1 Smoking cigarettes per day: 20.0 Years smoked: 40 Smoking pack-years: 40.00 Smoking status: Former smoker Tobacco type: cigarettes Second hand tobacco smoke exposure: No Smoking end date: 10/21/99 Alcohol intake: never Substance use: never Substance use type: does not use Do You Feel Safe in your Home?: Yes Lack of Transportation: No Lack of Food: Never True Current Housing: I Have Housing Concerned About Future Housing: No Difficulty Paying Gas/Electric Bills: No Difficulty Paying for Meds: No Currently Unemployed: No Education: High School Diploma/GED Difficulty w/ Childcare or Family Care: No Living arrangements: long[place] Occupation/Education: retired Gender identity (if verbalized by the patient): Female Spiritual care concerns: No Exam Narrative: APPEARANCE: No apparent distress. Head: atraumatic. EYES: EOMI, NOSE: Atraumatic NECK: Trachea midline RESPIRATORY: No increased rate of breathingCTAB CARDIOVASCULAR: RRR, no peripheral edema ABDOMINAL: Non-distended, soft, nontender no guarding rebound MUSCULOSKELETAl: No obvious deformities NEURO: Alert. Moving 4/4 extremities SKIN:: Warm, dry. Normal color PSYCHIATRIC: Normal affect Course Vital Signs Vital signs: Vital Signs Temperature 98 F 11/08/24 01:30 Pulse Rate 87 11/08/24 01:30 Respiratory Rate 17 11/08/24 01:30 Blood Pressure 149/79 H 01/19/25 01:30 Pulse Oximetry 96 11/08/24 01:30 Oxygen Delivery Room Air 11/08/24 01:30 Temperature 97.6 F 11/08/24 06:01 Pulse Rate 77 11/08/24 06:01 Respiratory Rate 18 11/08/24 06:01 Blood Pressure 138/77 11/08/24 06:01 Pulse Oximetry 98 11/08/24 06:01 Oxygen Delivery Room Air 11/08/24 01:30 Medical Decision Making MDM Narrative Medical decision making narrative: -Course: 81-year-old female recovering recent femur fracture presenting for nausea vomiting diarrhea. Laboratory workup significant for white count of 18.1. Urinalysis indicative of infection. Viral swabs negative. CT abdomen pelvis showed nonspecific distended loops of bowel with air fluid levels which may represent ileus or nonspecific enteritis. given her clinical presentation at think this is more likely gastroenteritis ileus. Patient was fluid resuscitated and started antibiotics. patient is frail/debilitated. she will be admitted the hospital for rehydration, abx, and pt/ot. -DDX includes but is not limited to: Sepsis UTI dehydration gastroenteritis and viral syndrome -Co-morbidities complicating care: CAD, asthma esophageal stricture GERD osteoporosis hypertension hyperlipidemia -Social determinants of health: lives alone in apartment -Independent interpretation of studies: labs imaging white count 18 urine indicative infection -Discussion of Management/Consultants: Chang -Interventions: Ceftriaxone 2 L normal saline, Pepcid, Zofran -Shared decision making / Disposition: admitted Vital Signs Vital Signs: Vital Signs Temperature 98 F 11/08/24 01:30 Pulse Rate 87 11/08/24 01:30 Respiratory Rate 17 11/08/24 01:30 Blood Pressure 149/79 H 11/08/24 01:30 Pulse Oximetry 96 11/08/24 01:30 Oxygen Delivery Room Air 11/08/24 01:30 Temperature 97.6 F 11/08/24 06:01 Pulse Rate 77 11/08/24 06:01 Respiratory Rate 18 11/08/24 06:01 Blood Pressure 138/77 11/08/24 06:01 Pulse Oximetry 98 11/08/24 06:01 Oxygen Delivery Room Air 11/08/24 01:30 Lab Data 11/08/24 01:41 11/08/24 01:41 Labs: Lab Results 11/08/24 11/08/24 11/08/24 Range/Units 01:41 01:52 02:54 WBC 18.1 H (4.5-10.0) K/mm3 RBC 4.20 (4.2-5.4) M/mm3 Hgb 13.0 (12.0-15.0) g/dL Hct 40.7 (37.0-47.0) % MCV 96.9 (80-100) fl MCH 31.0 (26-34) pg MCHC 31.9 L (32-36) g/dl RDW 14.1 (11.5-14.5) % Plt Count 456 H (150-375) k/mm3 MPV 8.7 (7.4-10.4) fl Immature Gran % (Auto) 0.6 H (0-0.5) % Neut % (Auto) 89.8 H (45.5-73.1) % Lymph % (Auto) 2.6 L (18.3-44.2) % Mcculloch % (Auto) 5.9 (2.6-8.5) % Eos % (Auto) 0.8 (0-4.4) % Baso % (Auto) 0.3 (0.2-1.2) % Lymph # (Auto) 0.47 L (0.9-3.2) K/mm3 [place]ulloch # (Auto) 1.1 H (0.1-0.6) K/mm3 Eos # (Auto) 0.1 (0-0.3) K/mm3 Baso # (Auto) 0.1 (0.0-0.1) K/mm3 Abs Immat Gran (auto) 0.10 H (0.00-0.031) K/mm3 Absolute Neuts (auto) 16.3 H (1.3-6.7) K/mm3 Absolute Nucleated RBC 0.000 (0.0-0.012) K/mm3 Nucleated RBC % 0.0 (0.0-0.2) % Sodium 134 L (137-145) mmol/L Potassium 4.5 (3.4-5.0) mmol/L Chloride 99 (98-107) mmol/L Carbon Dioxide 26 (22-30) mmol/L Anion Gap 9 (4-12) mmol/L BUN 21 H (7-17) mg/dL Creatinine 0.57 L (0.7-1.0) mg/dL Estim Creat Clear Calc 46 ml/min Estimated GFR > 60 (59 - ) Glucose 166 H (65-110) mg/dL Lactic Acid 1.0 (0.7-2.0) mmol/L Calcium 9.0 (8.4-10.2) mg/dL Total Bilirubin 0.8 (0.2-1.3) mg/dL AST 36 (14-36) U/L ALT 19 (6-35) U/L Alkaline Phosphatase 174 H (38-126) U/L Total Protein 7.0 (6.3-8.2) g/dL Albumin 3.8 (3.5-5.1) g/dL Lipase 51 (23-300) U/L Urine Color Yellow (Yellow) Urine Appearance Cloudy H (Clear) Urine pH 5.5 (5.0-9.0) Ur Specific [place] 1.018 (1.001-1.035) Urine Protein 1+ H (Negative) mg/dL Urine Glucose (UA) Negative (Negative) mg/dL Urine Ketones Trace H (Negative) mg/dL Ur Blood (Man) Trace (Negative) Urine Nitrate Positive H (Negative) Urine Bilirubin Negative (Negative) Urine Urobilinogen 0.2 (<2.0) mg/dL Add Ur Microanalysis Reviewed Leukocyte Esterase Rfl 2+ H (Negative) CHANDLER/UL Urine RBC 0-2 (0-2) /hpf Urine WBC >100 H (0-3) /hpf Ur Squamous Epith Cells None seen (Few) /hpf Urine Bacteria 4+ H /hpf Urine Casts 0-2 Urine Yeast (Budding) Present H (None) /hpf Influenza A (RT-PCR) Negative (Negative) Influenza B (RT-PCR) Negative (Negative) RSV (RT-PCR) Negative (Negative) SARS-CoV-2 RNA (RT-PCR) Negative (Negative) Discharge Plan Discharge Clinical Impression: Gastroenteritis, Acute UTI Patient Disposition: Still a Patient Condition: Stable Patient Language: Fijian Prescriptions: No Action diclofenac sodium [Voltaren Arthritis Pain] 1 % Gel 2 g TOPICAL BID PRN (Reason: back pain) Patient Comments: for back pain Rx Instructions: apply to back as needed for pain isosorbide mononitrate 30 mg tablet extended release 24 hr 15 mg PO DAILY sennosides-docusate sodium [Senokot-S] 8.6-50 mg Tablet 2 tab PO BID Qty: 60 0RF diltiazem HCl 120 mg capsule,extended release 24hr 120 mg PO Q24H Qty: 30 0RF Rx Instructions: TAKE 1 CAPSULE BY MOUTH EVERY DAY hydrocortisone 1 % cream 1 applic topical TID PRN (Reason: rash) Qty: 28.35 0RF valacyclovir [Valtrex] 500 mg tablet 500 mg PO Q12H PRN (Reason: outbreak) 3 Days Qty: 24 1RF ergocalciferol (vitamin D2) 1,250 mcg (50,000 unit) capsule See Rx Instructions .ROUTE .COMPLEX Qty: 3 2RF Dose Instruction: TAKE 1 CAPSULE BY MOUTH ONCE MONTHLY Patient Comments: Last taken 10/06/24 Rx Instructions: TAKE 1 CAPSULE BY MOUTH ONCE MONTHLY atorvastatin 10 mg Tablet 5 mg PO DAILY Qty: 30 0RF hydrocodone-acetaminophen 5-325 mg Tablet 1 tablet PO QID@0700,1300,1700,2100 Qty: 18 0RF aspirin 325 mg Tablet,Delayed Release (Dr/Ec) 325 mg PO BID Qty: 60 0RF pantoprazole 40 mg Tablet,Delayed Release (Dr/Ec) 40 mg PO QAM Qty: 30 0RF losartan 25 mg Tablet 37.5 mg PO DAILY Qty: 30 0RF Follow-up/Referrals: Angelo,MD Lewis [Primary Care Provider] -
[2024-11-08 07:55] LABS: Toxigenic C. Diff NEGATIVE (NEGATIVE)
--- NOTE | 2024-11-08 08:55 | PC.NURSE ---
This patient, Michelle Wakefield, was admitted to [facility] Surg Room 324-02. Patient/family oriented to hospital policies and general routines including ID bracelet, bed and alarms, visiting hours, pain management, procedures, bathroom and other care routines, personal items, smoking policy, room service/diet, and visiting hours. Information on how to activate the Rapid Response Team has been discussed. Patient/Family are encouraged to report perceived risks to care and to ask questions if they do not understand what they are told or what they should do.
--- NOTE | 2024-11-08 10:34 | PM.IMHP ---
H&P: HPI History of Present Illness Date/Time: 11/08/24 10:34 Chief Complaint: n/v/d Narrative: 89-year-old female with PMH/o CAD s/p stent, vit d deficiency, HTN, HLD, GERD, lumbar rediculopathy, osteoporosis, vertigo admitted from ED with a chief nausea vomiting and diarrhea for the last 2 days. She denies fevers chills chest pain difficulty breathing abdominal pain. Patient lives alone and is feeling very weak. She sustained a femoral neck fracture in September and was discharged rehab on October 23. Her mobility has still not returned to baseline. Patient lives with her of over 50 years. She ambulates with a cane. She also reports recent URI that she is still somewhat recovering from. She is a former smoker and smoked up to 1 PAD but quit in 1999. She denies any history of alcohol use or illicit substance use. IN ED: WBC 18.1. Urinalysis indicative of infection- culture pending. Viral swabs negative. CT abdomen pelvis showed nonspecific distended loops of bowel with air fluid levels which may represent ileus or nonspecific enteritis. given her clinical presentation at think this is more likely gastroenteritis ileus. Patient was started antibiotics (Ceftriaxone [id number]) and given IV fluids. Patient is frail/debilitated, will be admitted the hospital for rehydration, abx, and pt/ot. She is pleasant, alert and oriented. Congested but no cough, no chills. States feels very weak and off balance, nausased. [facility] Past Medical History Medical History Osteoporosis CAD (coronary artery disease) Intertrochanteric fracture of left femur Atherosclerotic heart disease of [place] coronary artery without angina pectoris Lumbar radiculopathy Mixed conductive and sensorineural hearing loss of both ears With bilateral hearing aids Vertigo Vitamin D deficiency Asthma Essential hypertension Esophageal stricture HSV-2 (herpes simplex virus 2) infection Chronic GERD HLD (hyperlipidemia) Hypertensive heart disease without congestive heart failure Surgical History Surgical History History of coronary artery stent placement History of meniscectomy of left knee (02/2013) Performed by Dr. Charles Corona History of total right knee replacement History of tonsillectomy History of coronary angioplasty (~1987) [facility] Status post cataract extraction of both eyes with insertion of intraocular lens (~2010) History of hysterectomy History of appendectomy Family History Family History Mother Hypertension Cerebrovascular accident Family history of diabetes mellitus in first degree relative Patient's mother is Sibling Asthma Family history of malignant neoplasm Family history of diabetes mellitus in first degree relative Patient's brother is Family history of kidney disease Father Family history of diabetes mellitus in first degree relative Patient's father is Hypertension Family history of coronary artery disease Other Diabetes mellitus Family history of arthritis Social History Social History Social History: Patient lives with her of over 50 years. She ambulates with a cane. She is a former smoker and smoked up to 1 pack cigarettes per day but quit in 1999. She smoked about a pack per day for 40-45 years. She denies any history of alcohol use or illicit substance use. Code status: She states that she does not believe she would want CPR but she does have an advanced directive in place. She will defer decision to her . Surrogate decision maker: Curtis () Smoking packs per day: 1 Smoking cigarettes per day: 20.0 Years smoked: 40 Smoking pack-years: 40.00 Smoking status: Former smoker Second hand tobacco smoke exposure: No Alcohol intake: never Substance use: never Substance use type: does not use Do You Feel Safe in your Home?: Yes Lack of Transportation: No Lack of Food: Never True Current Housing: I Have Housing Concerned About Future Housing: No Difficulty Paying Gas/Electric Bills: No Difficulty Paying for Meds: No Currently Unemployed: No Education: High School Diploma/GED Difficulty w/ Childcare or Family Care: No Living arrangements: shelter village Occupation/Education: retired Gender identity (if verbalized by the patient): Female Spiritual care concerns: No Meds Home Medications and Allergies Home Medications ?Medication ?Instructions ?Recorded ?Confirmed ?Type isosorbide mononitrate 30 mg 15 mg PO DAILY 08/04/20 11/08/24 History tablet,extended release 24 hr diclofenac sodium 1 % topical gel 2 g topical BID PRN back pain 07/01/21 11/08/24 History (Voltaren Arthritis Pain) valacyclovir 500 mg tablet 500 mg PO Q12H PRN outbreak 3 days 12/14/22 11/08/24 Rx (Valtrex) #24 tabs ergocalciferol (vitamin D2) 1,250 See Rx Instructions .Route 03/22/24 11/08/24 Rx mcg (50,000 unit) capsule .COMPLEX #3 caps diltiazem HCl 120 mg 120 mg PO Q24H #30 caps 10/12/24 11/08/24 Rx capsule,extended release 24 hr hydrocortisone 1 % topical cream 1 applic topical TID PRN rash 10/12/24 11/08/24 Rx #28.35 grams sennosides 8.6 mg-docusate sodium 2 tab PO BID #60 tabs 10/12/24 11/08/24 Rx 50 mg tablet (Senokot-S) aspirin 325 mg tablet,delayed 325 mg PO BID #60 tabs 10/22/24 11/08/24 Rx release atorvastatin 10 mg tablet 5 mg (1/2 x 10 mg) PO DAILY #30 10/22/24 11/08/24 Rx tabs hydrocodone 5 mg-acetaminophen 325 1 tablet PO 10/22/24 11/08/24 Rx mg tablet QID@0700,1300,1700,2100 #18 tabs losartan 25 mg tablet 37.5 mg (1.5 x 25 mg) PO DAILY #30 10/22/24 11/08/24 Rx tabs pantoprazole 40 mg tablet,delayed 40 mg PO QAM #30 tabs 10/22/24 11/08/24 Rx release Allergies Allergy/AdvReac Type Severity Reaction Status Date / Time atorvastatin AdvReac Mild Cramping Verified 11/08/24 06:18 of the Muscles oral steriods Allergy Intermediate Hives Uncoded 11/08/24 01:35 Vital Signs Vital Signs - 24 hr 11/08/24 01:30 11/08/24 03:42 11/08/24 06:01 Temperature 98 F 97.6 F 97.6 F Pulse Rate 87 91 77 Respiratory Rate 17 19 18 Blood Pressure 149/79 H 148/72 H 138/77 Pulse Oximetry 96 95 98 Oxygen Delivery Room Air 11/08/24 07:00 11/08/24 07:45 11/08/24 08:16 Temperature 97.9 F 97.7 F 97.8 F Pulse Rate 87 92 92 Respiratory Rate 20 18 18 Blood Pressure 144/75 H 146/74 H 118/57 L Pulse Oximetry 93 93 94 Oxygen Delivery H&P: Results Labs Labs: Short CBC 11/08/24 Range/Units 01:41 WBC 18.1 H (4.5-10.0) K/mm3 Hgb 13.0 (12.0-15.0) g/dL Hct 40.7 (37.0-47.0) % Plt Count 456 H (150-375) k/mm3 BMP 11/08/24 01:41 Sodium 134 L Potassium 4.5 Chloride 99 Carbon Dioxide 26 BUN 21 H Creatinine 0.57 L Glucose 166 H Calcium 9.0 Liver Function 11/08/24 Range/Units 01:41 Total Bilirubin 0.8 (0.2-1.3) mg/dL AST 36 (14-36) U/L ALT 19 (6-35) U/L Alkaline Phosphatase 174 H (38-126) U/L Albumin 3.8 (3.5-5.1) g/dL Urine 11/08/24 Range/Units 01:52 Urine Color Yellow (Yellow) Urine Appearance Cloudy H (Clear) Urine pH 5.5 (5.0-9.0) Ur Specific [place] 1.018 (1.001-1.035) Urine Protein 1+ H (Negative) mg/dL Urine Glucose (UA) Negative (Negative) mg/dL Assessment and Plan Assessment and plan (1) Atherosclerotic heart disease of [place] coronary artery without angina pectoris: Qualifiers: [place] vs. transplanted heart: [place] heart Qualified Code(s): I25.10 - Atherosclerotic heart disease of [place] coronary artery without angina pectoris Code(s): I25.10 - Atherosclerotic heart disease of [place] coronary artery without angina pectoris Status: Acute Assessment and Plan: asa, statin (2) CAD (coronary artery disease): Code(s): I25.10 - Atherosclerotic heart disease of [place] coronary artery without angina pectoris Status: Acute Assessment and Plan: cardizem, isosorbide, losartan (3) HLD (hyperlipidemia): Code(s): E78.5 - Hyperlipidemia, unspecified Status: Acute Assessment and Plan: continue home statin (4) Chronic GERD: Code(s): K21.9 - Gastro-esophageal reflux disease without esophagitis Status: Acute Assessment and Plan: protonix-will continue (5) Gastroenteritis: Code(s): K52.9 - Noninfective gastroenteritis and colitis, unspecified Status: Acute Assessment and Plan: IV fluids, zofran prn (6) Acute UTI: Code(s): N39.0 - Urinary tract infection, site not specified Status: Acute Assessment and Plan: ua and culture pending staretd on 1gm ceftriaxone 24h iv 11/08 -will continue it (7) Intertrochanteric fracture of left femur: Qualifiers: Encounter type: initial encounter Fracture type: closed Fracture alignment: nondisplaced Qualified Code(s): S72.145A - Nondisplaced intertrochanteric fracture of left femur, initial encounter for closed fracture Code(s): S72.142A - Displaced intertrochanteric fracture of left femur, initial encounter for closed fracture Status: Acute Assessment and Plan: discharged from the hospital to [facility] on 10/12 Aspirin 325 mg PO BID at d/c. completed rehab and was discharged home reports weak and off balance- irina add PT/OT Quality VTE Prophylaxis VTE prophylaxis: mechanical ordered Hospitalist MIPS Advance Care Plan I have confirmed that the patient's Advanced Care Plan is present, code status is documented, or surrogate decision maker is listed in patient medical record.: Yes Medication Reconciliation I have utilized all available resources to obtain, update and review the patients current medications (includes all prescriptions, OTC, herbals, cannabis, and nutritional supplements).: Yes
--- NOTE | 2024-11-08 15:19 | PC.NURSE ---
RN spoke with family daughter in law Bertha regarding pt medications at 1515 and went over the medication list that I had for the pt and Bertha informed me that it was the correct medication but stated that she was very unsure but gave RN the okay to go forth with given pt the medications that were schd for 1450.
[2024-11-08] MEDS: LOSARTAN POTASSIUM 12.5 MG TABLET 37.5 MG PO (15:54)
[2024-11-08] MEDS: dilTIAZem HCL CD 120 MG CAP.24HR PO (15:54)
[2024-11-08] MEDS: ISOSORBIDE MONONITRATE 15 MG TAB.ER.24H PO (15:54)
[2024-11-08] MEDS: PANTOPRAZOLE 40 MG TABLET PO (15:55)
--- NOTE | 2024-11-08 16:48 | PC.NURSE ---
RN called hospitalist Ela about pt since she keeps having liquid stools
--- NOTE | 2024-11-08 17:13 | PC.NURSE ---
Pt rosalia gonzalez and son in law came to visit pt and informed RN that sister in law Bertha had a accurate medication list so RN just went ahead and update the medication list that they had provided since they were unsure about a few medication when RN spoke with Bertha over the phone at [phone]
--- NOTE | 2024-11-08 18:07 | PC.NURSE ---
RN called Hospitalist Danielle
--- NOTE | 2024-11-08 18:09 | PC.NURSE ---
PT family want RN to hold meds due to pt diarrhea
--- NOTE | 2024-11-08 18:40 | PC.NURSE ---
Imodium not given due to pt vomiting hospitalist was informed
--- NOTE | 2024-11-08 18:46 | PM.EVENT ---
Event Note Event Note Event Note: Patient began vomiting again this evening per nursing report. Chart reviewed. CT scan shows findings concerning for a small bowel obstruction and due to ongoing emesis, NG tube was inserted for decompression.
[2024-11-09] MEDS: LOPERAMIDE HCL 2 MG CAPSULE 4 MG PO (01:03)
[2024-11-09 05:31] VITALS: BP 160/57; PULSE 75; RESP 12; TEMP 36.8; O2SAT 78
[2024-11-09 07:51] VITALS: O2SAT 95
--- NOTE | 2024-11-09 08:34 | P.PNIM_ITS ---
Progress Note: A&P Assessment and Plan (1) Atherosclerotic heart disease of [place] coronary artery without angina pectoris: Qualifiers: [place] vs. transplanted heart: [place] heart Qualified Code(s): I25.10 - Atherosclerotic heart disease of [place] coronary artery without angina pectoris Code(s): I25.10 - Atherosclerotic heart disease of [place] coronary artery without angina pectoris Status: Acute Assessment and Plan: asa, statin (2) CAD (coronary artery disease): Code(s): I25.10 - Atherosclerotic heart disease of [place] coronary artery without angina pectoris Status: Acute Assessment and Plan: cardizem, isosorbide, losartan (3) HLD (hyperlipidemia): Code(s): E78.5 - Hyperlipidemia, unspecified Status: Acute Assessment and Plan: continue home statin (4) Chronic GERD: Code(s): K21.9 - Gastro-esophageal reflux disease without esophagitis Status: Acute Assessment and Plan: protonix-will continue (5) Gastroenteritis: Code(s): K52.9 - Noninfective gastroenteritis and colitis, unspecified Status: Acute Assessment and Plan: IV fluids, zofran prn surgery was consulted for possible sbo- no acute interventions needed NG tube that was inserted last night could be d/padilla and pt can be advanced to clears (6) Acute UTI: Code(s): N39.0 - Urinary tract infection, site not specified Status: Acute Assessment and Plan: ua and culture pending staretd on 1gm ceftriaxone 24h iv 11/08 -will continue it (7) Intertrochanteric fracture of left femur: Qualifiers: Encounter type: initial encounter Fracture alignment: nondisplaced Fracture type: closed Qualified Code(s): S72.145A - Nondisplaced intertrochanteric fracture of left femur, initial encounter for closed fracture Code(s): S72.142A - Displaced intertrochanteric fracture of left femur, initial encounter for closed fracture Status: Acute Assessment and Plan: discharged from the hospital to [facility] on 10/12 Aspirin 325 mg PO BID at d/c. completed rehab and was discharged home reports weak and off balance- irina add PT/OT Subjective Date/time seen: 11/09/24 08:34 Interval history: 89-year-old female with PMH/o CAD s/p stent, vit d deficiency, HTN, HLD, GERD, lumbar rediculopathy, osteoporosis, vertigo admitted from ED with a chief nausea vomiting and diarrhea for the last 2 days. She denies fevers chills chest pain difficulty breathing abdominal pain. Patient lives alone and is feeling very weak. She sustained a femoral neck fracture in September and was discharged rehab on October 23. Her mobility has still not returned to baseline. Patient lives with her of over 50 years. She ambulates with a cane. She also reports recent URI that she is still somewhat recovering from. She is a former smoker and smoked up to 1 PAD but quit in 1999. She denies any history of alcohol use or illicit substance use. IN ED: WBC 18.1. Urinalysis indicative of infection- culture pending. Viral swabs negative. CT abdomen pelvis showed nonspecific distended loops of bowel with air fluid levels which may represent ileus or nonspecific enteritis. given her clinical presentation at think this is more likely gastroenteritis ileus. Patient was started antibiotics (Ceftriaxone [id number]) and given IV fluids. Patient is frail/debilitated, will be admitted the hospital for rehydration, abx, and pt/ot. She is pleasant, alert and oriented. Congested but no cough, no chills. States feels very weak and off balance, nauseated. Started vomiting last night- NPO- NGtube for concern for SBO. surgery was consulted. pt is alert, comfortable this am. Objective Data Vital Signs Vital Signs: Vital Signs - 24 hr 11/08/24 09:10 11/08/24 14:00 11/08/24 20:00 Temperature 98.1 F Pulse Rate 94 Respiratory Rate 16 Blood Pressure 145/55 H Pulse Oximetry 98 Oxygen Delivery Room Air Room Air 11/08/24 21:27 11/09/24 05:31 11/09/24 07:51 Temperature 97.0 F L 98.2 F Pulse Rate 81 75 Respiratory Rate 16 12 Blood Pressure 131/80 160/57 H Pulse Oximetry 91 78 L 95 Oxygen Delivery Intake/Output Intake/Output: Intake & Output 11/06/24 11/07/24 11/08/24 11/09/24 23:59 23:59 23:59 23:59 Intake Total 2150 Balance 2150 Meds/Results Medications: Active Medications Generic Name Dose Route Start Last Admin Trade Name Freq PRN Reason Stop Dose Admin Hydrocodone Bitart/Acetaminophen 1 tab 11/08/24 17:00 11/09/24 01:04 Hydrocodone/Acetaminophen (*Crx) 5-325 Mg Tablet PO Not Given QID@0700,1300,1700,2100 VERONIQUE Aspirin 325 mg 11/08/24 17:00 11/08/24 18:07 Aspirin 325 Mg Enteric Tablet PO Not Given BID VERONIQUE Atorvastatin Calcium 5 mg 11/09/24 09:00 Atorvastatin 5 Mg Tablet PO DAILY VERONIQUE Diclofenac Sodium 1 applic 11/08/24 14:40 Diclofenac Sodium 1% 100 Gm Gel (*Bkc) TOPICAL BID PRN back pain Diltiazem HCl 120 mg 11/08/24 14:50 11/08/24 15:54 Diltiazem Hcl Cd 120 Mg Cap.24hr PO 120 mg QAM VERONIQUE Administration Hydrocortisone 1 applic 11/08/24 14:40 Hydrocortisone 1% 30 Gm Cream TOPICAL TID PRN rash Ceftriaxone Sodium 1 gm in 50 mls @ 100 mls/hr 11/09/24 03:00 11/09/24 04:31 Rocephin 1 Gm/Ns 50 Ml IVPB 100 mls/hr Q24H VERONIQUE Administration Isosorbide Mononitrate 15 mg 11/08/24 14:50 11/08/24 15:54 Isosorbide Mononitrate 15 Mg Tab.Er.24h PO 15 mg DAILY VERONIQUE Administration Losartan Potassium 37.5 mg 11/08/24 14:50 11/08/24 15:54 Losartan Potassium 12.5 Mg Tablet PO 37.5 mg DAILY VERONIQUE Administration Miscellaneous Information 0 each 11/08/24 00:01 11/09/24 01:04 The External Med List Shows Patient Takes Rosuvastatin. Please Clarify. XX 12/08/24 00:00 Not Given CLARIFY VERONIQUE Ondansetron HCl 4 mg 11/08/24 14:37 Ondansetron Inj 4 Mg/2 Ml Vial IV PUSH Q4H PRN Nausea And Vomiting Pantoprazole Sodium 40 mg 11/08/24 14:50 11/08/24 15:55 Pantoprazole 40 Mg Tablet PO 40 mg QAM VERONIQUE Administration Senna/Docusate Sodium 2 tab 11/08/24 17:00 11/08/24 18:08 Senna/Docusate Sodium Tablet PO Not Given BID [facility] Radiology Results: ITS Impressions Abdomen/Pelvis CT 11/08/24 10:35 IMPRESSION: Findings suggesting a partial small bowel obstruction within the mid to distal jejunum, as detailed above. Findings within the left hemipelvis for which a dermoid cyst is suspected. Chest X-Ray 11/08/24 14:50 IMPRESSION: No focal infiltrate or effusion. Abdomen X-Ray 11/08/24 21:10 IMPRESSION: NG tube, in good position. Quality VTE Prophylaxis VTE prophylaxis: mechanical ordered
[2024-11-09] MEDS: dilTIAZem HCL CD 120 MG CAP.24HR PO (10:07)
[2024-11-09] MEDS: LOSARTAN POTASSIUM 12.5 MG TABLET 37.5 MG PO (10:07)
[2024-11-09] MEDS: ISOSORBIDE MONONITRATE 15 MG TAB.ER.24H PO (10:08)
[2024-11-09] MEDS: SODIUM CHLORIDE 0.9% IV 1,000 ML 125 ML IV CONT (12:28)
--- NOTE | 2024-11-09 12:50 | P.CONGS_ITS ---
Assessment and Plan Assessment and plan (1) Gastroenteritis: Code(s): K52.9 - Noninfective gastroenteritis and colitis, unspecified Status: Acute Assessment and Plan: This seems more likely to be gastroenteritis rather than a small bowel obstruction. She presented with vomiting and diarrhea. Her diarrhea has slowed and her nausea improved. She is not having any abdominal pain or tenderness on exam. We will go ahead and remove the NG tube today and start her on a full liquid diet. Will plan to advance her diet as tolerated. No indication for any surgical intervention. Continue with supportive care. (2) Acute UTI: Code(s): N39.0 - Urinary tract infection, site not specified Status: Acute Assessment and Plan: Continue antibiotics per Hospitalist. UA also shows budding yeast, would recommend treating for yeast infection as well. (3) Dehydration: Code(s): E86.0 - Dehydration Status: Acute Assessment and Plan: Secondary to vomiting/diarrhea. She received 2 liters of IV fluids in the ER two nights ago, but it doesn't appear that she has received maintenance fluids. Given her NPO status following the vomiting/diarrhea, I will order continuous IV fluids for now until she is tolerating oral intake. No significant electrolyte imbalances on initial labs. Will order repeat labs. (4) Essential hypertension: Code(s): I10 - Essential (primary) hypertension Status: Acute (5) Chronic GERD: Code(s): K21.9 - Gastro-esophageal reflux disease without esophagitis Status: Acute Plan I have discussed the patient's case and plan of care with Dr. Vides. Thank you for allowing us to see the patient in consultation and we will continue to follow along with you. History of Present Illness Consult details Consult date: 11/09/24 Reason for consult: other (Small bowel obstruction) Requesting physician: Ela Tiwari, STENCIL MACHINE OPERATOR Narrative: This is an 89-year-old woman with PMH of HTN, hyperlipidemia, GERD, history of CAD s/p angioplasty over 30 years ago, and recent left femur fracture s/p insertion left hip femoral jessa on 10/09/24, who we have been asked to see in surgical consultation for small bowel obstruction. The patient was discharged to [facility] for rehab following her hospitalization for the left femur fracture. She was eventually discharged to [place] on 10/23/2024 where she continued to receive rehab and was eventually discharged home last Saturday. The following morning, she woke up with nausea and vomiting. She had multiple episodes of nonbloody emesis. She reportedly was unable to keep anything down. Her vomiting persisted through that evening and into the night, therefore she came into the ED for evaluation early Saturday morning. After arriving to the hospital, the patient reportedly had multiple episodes of diarrhea. She denies ever having any abdominal pain. In the ED, she had stable vital signs. Labs showed WBC 18.1, sodium 134, BUN 21, creatinine 0.57. UA suggests UTI. With further questioning, she admits to dysuria over the past few days, but no other urinary complaints. CT scan of the abdomen and pelvis showed findings suggesting a partial small bowel obstruction within the mid to distal jejunum. Also shows findings within the left hemipelvis for which a dermoid cyst is suspected. She was admitted for UTI and Gastroenteritis. She is on IV ceftriaxone. C.diff negative. After admission yesterday, she had more vomiting and subsequently had an NG tube placed in the afternoon/evening. She reports having a lot of diarrhea after admission onto the medical floor, which has slowed this morning. She is now passing lots of flauts. Still denies any abdominal pain and reports her nausea has significantly improved. Per nursing, her diet order did not get changed to NPO after NG placement and she was delivered a tray for breakfast, of which she had coffee and a small amount of potatoes and sausage. Her nurse then removed her food and her diet order was corrected to NPO. She has only had about 200 cc out of the NG tube per nursing. Previous abdominal surgeries include a hysterectomy with incidental appendectomy. Review of Systems 2 Review of Systems: All systems reviewed & are unremarkable except as noted in HPI and below [facility] Past Medical History Medical History Osteoporosis CAD (coronary artery disease) Intertrochanteric fracture of left femur Atherosclerotic heart disease of [place] coronary artery without angina pectoris Lumbar radiculopathy Mixed conductive and sensorineural hearing loss of both ears With bilateral hearing aids Vertigo Vitamin D deficiency Asthma Essential hypertension Esophageal stricture HSV-2 (herpes simplex virus 2) infection Chronic GERD HLD (hyperlipidemia) Hypertensive heart disease without congestive heart failure Surgical History Surgical History History of coronary artery stent placement History of meniscectomy of left knee (02/2013) Performed by Dr. Charles Corona History of total right knee replacement History of tonsillectomy History of coronary angioplasty (~1987) [facility] Status post cataract extraction of both eyes with insertion of intraocular lens (~2010) History of hysterectomy History of appendectomy Family History Family History Mother Hypertension Cerebrovascular accident Family history of diabetes mellitus in first degree relative Patient's mother is Sibling Asthma Family history of malignant neoplasm Family history of diabetes mellitus in first degree relative Patient's brother is Family history of kidney disease Father Family history of diabetes mellitus in first degree relative Patient's father is Hypertension Family history of coronary artery disease Other Diabetes mellitus Family history of arthritis Social History Social History Social History: Patient lives with her of over 50 years. She ambulates with a cane. She is a former smoker and smoked up to 1 pack cigarettes per day but quit in 1999. She smoked about a pack per day for 40-45 years. She denies any history of alcohol use or illicit substance use. Code status: She states that she does not believe she would want CPR but she does have an advanced directive in place. She will defer decision to her . Surrogate decision maker: Curtis () Smoking packs per day: 1 Smoking cigarettes per day: 20.0 Years smoked: 40 Smoking pack-years: 40.00 Smoking status: Former smoker Second hand tobacco smoke exposure: No Alcohol intake: never Substance use: never Substance use type: does not use Do You Feel Safe in your Home?: Yes Lack of Transportation: No Lack of Food: Never True Current Housing: I Have Housing Concerned About Future Housing: No Difficulty Paying Gas/Electric Bills: No Difficulty Paying for Meds: No Currently Unemployed: No Education: High School Diploma/GED Difficulty w/ Childcare or Family Care: No Living arrangements: [place] Occupation/Education: retired Gender identity (if verbalized by the patient): Female Spiritual care concerns: No Meds Home Medications and Allergies Home Medications ?Medication ?Instructions ?Recorded ?Confirmed ?Type diclofenac sodium 1 % topical gel 2 g topical BID PRN back pain 07/01/21 11/08/24 History (Voltaren Arthritis Pain) valacyclovir 500 mg tablet 500 mg PO Q12H PRN outbreak 3 days 12/14/22 11/08/24 Rx (Valtrex) #24 tabs ergocalciferol (vitamin D2) 1,250 See Rx Instructions .Route 03/22/24 11/08/24 Rx mcg (50,000 unit) capsule .COMPLEX #3 caps diltiazem HCl 120 mg 120 mg PO Q24H #30 caps 10/12/24 11/08/24 Rx capsule,extended release 24 hr hydrocortisone 1 % topical cream 1 applic topical TID PRN rash 10/12/24 11/08/24 Rx #28.35 grams sennosides 8.6 mg-docusate sodium 2 tab PO BID #60 tabs 10/12/24 11/08/24 Rx 50 mg tablet (Senokot-S) atorvastatin 10 mg tablet 5 mg (1/2 x 10 mg) PO DAILY #30 10/22/24 11/08/24 Rx tabs hydrocodone 5 mg-acetaminophen 325 1 tablet PO 10/22/24 11/08/24 Rx mg tablet QID@0700,1300,1700,2100 #18 tabs losartan 25 mg tablet 37.5 mg (1.5 x 25 mg) PO DAILY #30 10/22/24 11/08/24 Rx tabs pantoprazole 40 mg tablet,delayed 40 mg PO QAM #30 tabs 10/22/24 11/08/24 Rx release aspirin 325 mg tablet,delayed 81 mg PO BID 11/08/24 11/08/24 History release omeprazole 20 mg capsule,delayed mg PO DAILY 11/08/24 History release rosuvastatin 5 mg tablet mg 11/08/24 History valsartan 40 mg tablet mg 11/08/24 History Allergies Allergy/AdvReac Type Severity Reaction Status Date / Time atorvastatin AdvReac Mild Cramping Verified 11/08/24 06:18 of the Muscles oral steriods Allergy Intermediate Hives Uncoded 11/08/24 01:35 Vital Signs Vital Signs - 24 hr 11/08/24 14:00 11/08/24 20:00 11/08/24 21:27 Temperature 98.1 F 97.0 F L Pulse Rate 94 81 Respiratory Rate 16 16 Blood Pressure 145/55 H 131/80 Pulse Oximetry 98 91 Oxygen Delivery Room Air 11/09/24 05:31 11/09/24 07:51 11/09/24 10:18 Temperature 98.2 F Pulse Rate 75 Respiratory Rate 12 Blood Pressure 160/57 H Pulse Oximetry 78 L 95 Oxygen Delivery Room Air 11/09/24 11:03 Temperature Pulse Rate Respiratory Rate Blood Pressure Pulse Oximetry Oxygen Delivery Room Air Exam 2 Const: General: comfortable and no acute distress Nutritional Appearance: a verage body habitus Orientation/consciousness: patient oriented x3 HENMT: Head: normocephalic and atraumatic Ears: hearing grossly normal bilaterally Mouth: Yes moist mucous membranes Eyes: General: appearance normal, both eyes and all related structures P upils: Equal, round and reactive pupils present Neck: Neck: normal visual inspection and full ROM Resp: Effort & Inspection: no respiratory distress Auscultation: clear to auscultation bilaterally Cardio: Rate: regular rate Rhythm: regular rhythm Peripheral pulses: P eripheral pulses 2+ throughout GI: Inspection: non-distended, scar (lower midline scar) and no visible herniation GI Palp: Yes Soft to palpation, No Tenderness to palpation present (GI), No Guarding due to palpation present (GI), Yes No hepatosplenomegaly present and No Rebound tenderness present Auscultation: normal bowel sounds Skin: General skin exam: normal color Neuro: General: moves all extremities and no focal motor deficits Speech: n ormal speech Motor exam (neuro): 5/5 motor strength present throughout Extrem: General: normal to inspection, no edema and other (left hip/thigh incisions well healed) Psych: Mental Status: mental status grossly normal Attitude: cooperative Insight: Good insight present (Psych) Judgement: Good judgement present (Psych) Results Labs 11/08/24 01:41 11/08/24 01:41 Labs: All other labs normal. Imaging Additional studies: ITS Impressions Abdomen/Pelvis CT 11/08/24 10:35 IMPRESSION: Findings suggesting a partial small bowel obstruction within the mid to distal jejunum, as detailed above. Findings within the left hemipelvis for which a dermoid cyst is suspected. Chest X-Ray 11/08/24 14:50 IMPRESSION: No focal infiltrate or effusion. Abdomen X-Ray 01/19/25 21:10 IMPRESSION: NG tube, in good position.
[2024-11-09 14:00] VITALS: BP 133/52; PULSE 80; RESP 20; TEMP 36.3; O2SAT 93
[2024-11-09] MEDS: ENOXAPARIN 40 MG/0.4 ML SYRINGE SUB-Q (14:36)
[2024-11-09] MEDS: ASPIRIN 81 MG ENTERIC TABLET PO (18:02)
[2024-11-09 21:19] VITALS: BP 135/57; PULSE 75; RESP 18; TEMP 37.2; O2SAT 97
[2024-11-09] MEDS: ROSUVASTATIN 5 MG TABLET PO (22:02)
[2024-11-10] MEDS: SODIUM CHLORIDE 0.9% IV 1,000 ML 125 ML IV CONT ×2 (00:03→14:10)
[2024-11-10 05:27] VITALS: BP 157/63; PULSE 70; RESP 200; TEMP 36.9; O2SAT 96
[2024-11-10 06:17] LABS: Hematocrit 35.4 % (37.0-47.0); Hemoglobin 11.2 g/dL (12.0-15.0); Mean Corpuscular HGB Conc 31.6 g/dl (32-36); Mean Corpuscular Hemoglobin 31.1 pg (26-34); Mean Corpuscular Volume 98.3 fl (80-100); Mean Platelet Volume 8.9 fl (7.4-10.4); Platelet Count Result 356 k/mm3 (150-375); Red Cell Distribution Width 13.6 % (11.5-14.5); White Blood Count 5.8 K/mm3 (4.5-10.0)
[2024-11-10 06:40] LABS: Anion Gap 4 mmol/L (4-12); Blood Urea Nitrogen 11 mg/dL (7-17); Calcium 8.1 mg/dL (8.4-10.2); Carbon Dioxide 32 mmol/L (22-30); Chloride 103 mmol/L (98-107); Estimated CRCL calculation 41 ml/min; Estimated Glomerular Filt Rate > 60; Glucose 86 mg/dL (65-110); Potassium 3.1 mmol/L (3.4-5.0); Sodium 139 mmol/L (137-145)
[2024-11-10] MEDS: PANTOPRAZOLE 40 MG TABLET PO (08:58)
[2024-11-10] MEDS: ASPIRIN 81 MG ENTERIC TABLET PO ×2 (08:58→17:38)
[2024-11-10] MEDS: LOSARTAN POTASSIUM 12.5 MG TABLET 37.5 MG PO (08:58)
[2024-11-10] MEDS: dilTIAZem HCL CD 120 MG CAP.24HR PO (08:58)
[2024-11-10] MEDS: ENOXAPARIN 40 MG/0.4 ML SYRINGE SUB-Q (08:59)
[2024-11-10 09:51] VITALS: O2SAT 97
--- NOTE | 2024-11-10 12:10 | PM.PNGS ---
Progress Note: A&P Assessment and Plan (1) Gastroenteritis: Code(s): K52.9 - Noninfective gastroenteritis and colitis, unspecified Status: Acute Assessment and Plan: Continues to improve. Even though her appetite is not back to normal, she took sufficient amount orally. Her main concern at this time is she has a leaking sink at home. She is also concerned that she has not had a bowel movement since the diarrhea stopped. Will go ahead and advance her diet. Continues to improve. (2) Dehydration: Code(s): E86.0 - Dehydration Status: Acute Assessment and Plan: Improving, potassium low at 3.1 Subjective Subjective Date/Time Seen: 11/10/24 12:10 Patient reports: no new complaints, feels better, pain is less, tolerating liquids well (Says her appetite is not normal as yet), voiding w/o difficulty, no bowel movement (Concern she has not had a bowel movement since the diarrhea stopped) and afebrile Review of Systems Review of Systems: All systems reviewed & are unremarkable except as noted in HPI and below (HPI) Exam Const: General: cooperative, comfortable, no acute distress, alert, awake and anxious Orientation/consciousness: patient oriented x3 GI: Inspection: normal to inspection, no abdominal wall ecchymosis, non-distended and no visible herniation GI Palp: Yes Soft to palpation, No Tenderness to palpation present (GI), No Guarding due to palpation present (GI), No Hernia present, No Palpable mass present and No Rebound tenderness present Neuro: General: patient oriented x3 and no focal motor deficits Extrem: General: no calf tenderness and no edema Psych: Affect: normal affect Insight: Good insight present (Psych) Judgement: Good judgement present (Psych) Objective Data Vital Signs Vital Signs: Vital Signs - 24 hr 11/09/24 14:00 11/09/24 20:00 11/09/24 21:19 Temperature 36.3 C L 37.2 C Pulse Rate 80 75 Respiratory Rate 20 18 Blood Pressure 133/52 L 135/57 L Pulse Oximetry 93 97 Oxygen Delivery Room Air 11/10/24 05:27 11/10/24 09:51 Temperature 36.9 C Pulse Rate 70 Respiratory Rate 200 H Blood Pressure 157/63 H Pulse Oximetry 96 97 Oxygen Delivery Room Air Intake/Output Intake/Output: Intake & Output 01/1811/08/24 11/09/24 11/10/24 23:59 23:59 23:59 23:59 Intake Total 215 215 300 Balance 2152149 300 Meds/Results Medications: Active Medications Generic Name Dose Route Start Last Admin Trade Name Freq PRN Reason Stop Dose Admin Hydrocodone Bitart/Acetaminophen 1 tab 11/08/24 17:00 11/10/24 07:00 Hydrocodone/Acetaminophen (*Crx) 5-325 Mg Tablet PO Not Given QID@0700,1300,1700,2100 [facility] Aspirin 81 mg 11/09/24 17:00 11/10/24 08:58 Aspirin 81 Mg Enteric Tablet PO 81 mg BID VERONIQUE Administration Diclofenac Sodium 1 applic 11/08/24 14:40 Diclofenac Sodium 1% 100 Gm Gel (*Bkc) TOPICAL BID PRN back pain Diltiazem HCl 120 mg 11/08/24 14:50 11/10/24 08:58 Diltiazem Hcl Cd 120 Mg Cap.24hr PO 120 mg QAM VERONIQUE Administration Enoxaparin Sodium 40 mg 11/10/24 09:00 11/10/24 08:59 Enoxaparin 40 Mg/0.4 Ml Syringe SUB-Q 40 mg DAILY VERONIQUE Administration Hydrocortisone 1 applic 11/08/24 14:40 Hydrocortisone 1% 30 Gm Cream TOPICAL TID PRN rash Ceftriaxone Sodium 1 gm in 50 mls @ 100 mls/hr 11/09/24 03:00 11/10/24 04:52 Rocephin 1 Gm/Ns 50 Ml IVPB 100 mls/hr Q24H VERONIQUE Administration Sodium Chloride 1,000 mls @ 80 mls/hr 11/09/24 12:10 11/10/24 00:03 Normal Saline Iv IV CONT 125 mls/hr .[id number] VERONIQUE Administration Losartan Potassium 37.5 mg 11/08/24 14:50 11/10/24 08:58 Losartan Potassium 12.5 Mg Tablet PO 37.5 mg DAILY VERONIQUE Administration Ondansetron HCl 4 mg 11/08/24 14:37 Ondansetron Inj 4 Mg/2 Ml Vial IV PUSH Q4H PRN Nausea And Vomiting Pantoprazole Sodium 40 mg 11/08/24 14:50 11/10/24 08:58 Pantoprazole 40 Mg Tablet PO 40 mg QAM VERONIQUE Administration Rosuvastatin Calcium 5 mg 11/09/24 21:00 11/09/24 22:02 Rosuvastatin 5 Mg Tablet PO 5 mg HS VERONIQUE Administration Senna/Docusate Sodium 2 tab 11/08/24 17:00 11/09/24 14:23 Senna/Docusate Sodium Tablet PO Not Given BID [facility] Radiology Results: ITS Impressions Abdomen/Pelvis CT 11/08/24 10:35 IMPRESSION: Findings suggesting a partial small bowel obstruction within the mid to distal jejunum, as detailed above. Findings within the left hemipelvis for which a dermoid cyst is suspected. Chest X-Ray 11/08/24 14:50 IMPRESSION: No focal infiltrate or effusion. Abdomen X-Ray 11/08/24 21:10 IMPRESSION: NG tube, in good position. Labs Labs: Laboratory Results - last 24 hr 11/10/24 06:01 WBC 5.8 RBC 3.60 L Hgb 11.2 L Hct 35.4 L MCV 98.3 MCH 31.1 MCHC 31.6 L RDW 13.6 Plt Count 356 MPV 8.9 Sodium 139 Potassium 3.1 L Chloride 103 Carbon Dioxide 32 H Anion Gap 4 BUN 11 D Creatinine 0.65 L Estim Creat Clear Calc 41 Estimated GFR > 60 Glucose 86 Calcium 8.1 L
[2024-11-10 13:00] VITALS: BP 150/60; PULSE 80; RESP 20; TEMP 36.9; O2SAT 100
[2024-11-10 14:00] VITALS: BP 140/70; PULSE 80; RESP 20; TEMP 36.9; O2SAT 99
--- NOTE | 2024-11-10 15:39 | P.PNIM_ITS ---
Progress Note: A&P Assessment and Plan (1) Atherosclerotic heart disease of [place] coronary artery without angina pectoris: Qualifiers: [place] vs. transplanted heart: [place] heart Qualified Code(s): I25.10 - Atherosclerotic heart disease of [place] coronary artery without angina pectoris Code(s): I25.10 - Atherosclerotic heart disease of [place] coronary artery without angina pectoris Status: Acute Assessment and Plan: asa, statin (2) CAD (coronary artery disease): Code(s): I25.10 - Atherosclerotic heart disease of [place] coronary artery without angina pectoris Status: Acute Assessment and Plan: cardizem, isosorbide, losartan (3) HLD (hyperlipidemia): Code(s): E78.5 - Hyperlipidemia, unspecified Status: Acute Assessment and Plan: continue home statin (4) Chronic GERD: Code(s): K21.9 - Gastro-esophageal reflux disease without esophagitis Status: Acute Assessment and Plan: protonix-will continue (5) Gastroenteritis: Code(s): K52.9 - Noninfective gastroenteritis and colitis, unspecified Status: Acute Assessment and Plan: IV fluids, zofran prn surgery was consulted for possible sbo- no acute interventions needed NG tube that was inserted last night could be d/padilla and pt can be advanced to clears ng stopped toelrated clears well- ok to advance work with pt/ot (6) Acute UTI: Code(s): N39.0 - Urinary tract infection, site not specified Status: Acute Assessment and Plan: ua and culture pending staretd on 1gm ceftriaxone 24h iv 11/08 downgrade to bacrum (7) Intertrochanteric fracture of left femur: Qualifiers: Encounter type: initial encounter Fracture type: closed Fracture alig nment: nondisplaced Qualified Code(s): S72.145A - Nondisplaced intertrochanteric fracture of left femur, initial encounter for closed fracture Code(s): S72.142A - Displaced intertrochanteric fracture of left femur, initial encounter for closed fracture Status: Acute Assessment and Plan: discharged from the hospital to [facility] on 10/12 Aspirin 325 mg PO BID at d/c. completed rehab and was discharged home reports weak and off balance- irina add PT/OT Time Spent With Patient Time with patient: 25 - 35 minutes Subjective Date/time seen: 11/10/24 15:39 Interval history: 89-year-old female with PMH/o CAD s/p stent, vit d deficiency, HTN, HLD, GERD, lumbar rediculopathy, osteoporosis, vertigo admitted from ED with a chief nausea vomiting and diarrhea for the last 2 days. She denies fevers chills chest pain difficulty breathing abdominal pain. Patient lives alone and is feeling very weak. She sustained a femoral neck fracture in September and was discharged rehab on October 23. Her mobility has still not returned to baseline. Patient lives with her of over 50 years. She ambulates with a cane. She also reports recent URI that she is still somewhat recovering from. She is a former smoker and smoked up to 1 PAD but quit in 1999. She denies any history of alcohol use or illicit substance use. IN ED: WBC 18.1. Urinalysis indicative of infection- culture pending. Viral swabs negative. CT abdomen pelvis showed nonspecific distended loops of bowel with air fluid levels which may represent ileus or nonspecific enteritis. given her clinical presentation at think this is more likely gastroenteritis ileus. Patient was started antibiotics (Ceftriaxone [id number]) and given IV fluids. Patient is frail/debilitated, will be admitted the hospital for rehydration, abx, and pt/ot. She is pleasant, alert and oriented. Congested but no cough, no chills. States feels very weak and off balance, nauseated. Diarrhea stopped. OK to advance diet per surgery. PT is doing well. working with pt/ot Review of Systems Constitutional: Constitutional: Denies chills Cardiovascular: Cardiovascular: Denies chest pain Respiratory: Respiratory: Denies chest congestion and Denies cough Gastrointestinal: Gastrointestinal: Denies abdominal pain and Denies diarrhea Comments: diarrhea stopped, no more nausea Musculoskeletal: Musculoskeletal: Denies back pain Exam Const: General: comfortable Resp: Effort & Inspection: normal respiratory effort Auscultation: clear to auscultation bilaterally Cardio: Rate: regular rate Rhythm: regular rhythm GI: GI Palp: Yes Soft to palpation Auscultation: normal bowel sounds Skin: General skin exam: normal color Extrem: General: normal to inspection Psych: Affect: normal affect Objective Data Vital Signs Vital Signs: Vital Signs - 24 hr 11/09/24 20:00 11/09/24 21:19 11/10/24 05:27 Temperature 99.0 F 98.4 F Pulse Rate 75 70 Respiratory Rate 18 200 H Blood Pressure 135/57 L 157/63 H Pulse Oximetry 97 96 Oxygen Delivery Room Air 11/10/24 09:51 11/10/24 13:00 11/10/24 14:00 Temperature 98.4 F 98.4 F Pulse Rate 80 80 Respiratory Rate 20 20 Blood Pressure 150/60 H 140/70 Pulse Oximetry 97 100 99 Oxygen Delivery Room Air Intake/Output Intake/Output: Intake & Output 11/07/24 11/08/24 11/09/24 11/10/24 23:59 23:59 23:59 23:59 Intake Total 2150 2150 2260 Balance 2150 2150 2260 Meds/Results Medications: Active Medications Generic Name Dose Route Start Last Admin Trade Name Freq PRN Reason Stop Dose Admin Hydrocodone Bitart/Acetaminophen 1 tab 11/08/24 17:00 11/10/24 13:00 Hydrocodone/Acetaminophen (*Crx) 5-325 Mg Tablet PO Not Given QID@0700,1300,1700,2100 [facility] Aspirin 81 mg 11/09/24 17:00 11/10/24 08:58 Aspirin 81 Mg Enteric Tablet PO 81 mg BID VERONIQUE Administration Diclofenac Sodium 1 applic 11/08/24 14:40 Diclofenac Sodium 1% 100 Gm Gel (*Bkc) TOPICAL BID PRN back pain Diltiazem HCl 120 mg 11/08/24 14:50 11/10/24 08:58 Diltiazem Hcl Cd 120 Mg Cap.24hr PO 120 mg QAM VERONIQUE Administration Enoxaparin Sodium 40 mg 11/10/24 09:00 11/10/24 08:59 Enoxaparin 40 Mg/0.4 Ml Syringe SUB-Q 40 mg DAILY VERONIQUE Administration Hydrocortisone 1 applic 11/08/24 14:40 Hydrocortisone 1% 30 Gm Cream TOPICAL TID PRN rash Sodium Chloride 1,000 mls @ 80 mls/hr 11/09/24 12:10 11/10/24 14:10 Normal Saline Iv IV CONT 125 mls/hr .[id number] VERONIQUE Administration Losartan Potassium 37.5 mg 11/08/24 14:50 11/10/24 08:58 Losartan Potassium 12.5 Mg Tablet PO 37.5 mg DAILY VERONIQUE Administration Ondansetron HCl 4 mg 11/08/24 14:37 Ondansetron Inj 4 Mg/2 Ml Vial IV PUSH Q4H PRN Nausea And Vomiting Pantoprazole Sodium 40 mg 11/08/24 14:50 11/10/24 08:58 Pantoprazole 40 Mg Tablet PO 40 mg QAM VERONIQUE Administration Rosuvastatin Calcium 5 mg 11/09/24 21:00 11/09/24 22:02 Rosuvastatin 5 Mg Tablet PO 5 mg HS VERONIQUE Administration Senna/Docusate Sodium 2 tab 11/08/24 17:00 11/09/24 14:23 Senna/Docusate Sodium Tablet PO Not Given BID VERONIQUE Trimethoprim/Sulfamethoxazole 1 tab 11/10/24 21:00 Sulfamethoxazole/Trimethoprim 800/160 Mg Ds Tablet PO 11/15/24 09:01 Q12HR [facility] Radiology Results: ITS Impressions Abdomen/Pelvis CT 11/08/24 10:35 IMPRESSION: Findings suggesting a partial small bowel obstruction within the mid to distal jejunum, as detailed above. Findings within the left hemipelvis for which a dermoid cyst is suspected. Chest X-Ray 11/08/24 14:50 IMPRESSION: No focal infiltrate or effusion. Abdomen X-Ray 11/08/24 21:10 IMPRESSION: NG tube, in good position. Labs Labs: Laboratory Results - last 24 hr 11/10/24 06:01 WBC 5.8 RBC 3.60 L Hgb 11.2 L Hct 35.4 L MCV 98.3 MCH 31.1 MCHC 31.6 L RDW 13.6 Plt Count 356 MPV 8.9 Sodium 139 Potassium 3.1 L Chloride 103 Carbon Dioxide 32 H Anion Gap 4 BUN 11 D Creatinine 0.65 L Estim Creat Clear Calc 41 Estimated GFR > 60 Glucose 86 Calcium 8.1 L Quality VTE Prophylaxis VTE prophylaxis: mechanical ordered
[2024-11-10 20:45] VITALS: BP 134/62; PULSE 70; RESP 16; TEMP 36.1; O2SAT 96
[2024-11-10] MEDS: SULFAMETHOXAZOLE/TRIMETHOPRIM 800/160 MG DS TABLET 1 TAB PO (20:51)
[2024-11-10] MEDS: ROSUVASTATIN 5 MG TABLET PO (20:51)
[2024-11-11] MEDS: SODIUM CHLORIDE 0.9% IV 1,000 ML 125 ML IV CONT (05:35)
[2024-11-11 05:41] VITALS: BP 160/66; PULSE 72; RESP 16; TEMP 36.2; O2SAT 98
[2024-11-11 08:00] VITALS: O2SAT 98
[2024-11-11] MEDS: ASPIRIN 81 MG ENTERIC TABLET PO ×2 (08:25→16:43)
[2024-11-11] MEDS: dilTIAZem HCL CD 120 MG CAP.24HR PO (08:25)
[2024-11-11] MEDS: PANTOPRAZOLE 40 MG TABLET PO (08:26)
[2024-11-11] MEDS: SULFAMETHOXAZOLE/TRIMETHOPRIM 800/160 MG DS TABLET 1 TAB PO ×2 (08:26→22:14)
[2024-11-11] MEDS: LOSARTAN POTASSIUM 12.5 MG TABLET 37.5 MG PO (08:26)
[2024-11-11] MEDS: ENOXAPARIN 40 MG/0.4 ML SYRINGE SUB-Q (08:26)
--- NOTE | 2024-11-11 12:54 | PCDIET ---
Nutrition consult: Patient request. Pt recovering from gastroenteritis and wanted to know what she should eat. Recommended bland diet until recovered. Pt verbalizes understanding. Thank you for this consult.
--- NOTE | 2024-11-11 13:41 | PM.PNGS ---
Progress Note: A&P Assessment and Plan (1) Gastroenteritis: Code(s): K52.9 - Noninfective gastroenteritis and colitis, unspecified Status: Acute Assessment and Plan: Resolving. She is tolerating a regular diet. No abdominal pain, nausea, or vomiting. She still has not had a BM since her diarrhea stopped, will give a fleets enema. She can be restarted on her Senokot she takes at home. No surgical issues at this time. We will sign off. Call with any surgical questions/concerns. (2) Dehydration: Code(s): E86.0 - Dehydration Status: Acute Assessment and Plan: Improved. She has good oral intake. Will stop IV fluids. Potassium low at 3.1 yesterday and not sure that it was replaced. Repeat BMP and replace as needed. Plan I have discussed the patient's case and plan of care with Dr. Vides. Subjective Subjective Date/Time Seen: 11/11/24 13:41 Patient reports: no new complaints, feels better, tolerating a regular diet, flatus, no bowel movement and afebrile Interval history: Patient is tolerating a regular diet. No nausea, vomiting, or abdominal pain. She reports mild intermittent gas pains in feels like she needs to have a bowel movement, but has not yet since the diarrhea stopped after her admission. She is passing flatus and feels like she has pressure like she needs to have a BM. No other complaints at this time. She has dietary questions and is requesting to speak with a dietitian for education. Exam Const: General: comfortable and no acute distress Orientation/consciousness: patient oriented x3 GI: Inspection: non-distended GI Palp: Yes Soft to palpation, No Tenderness to palpation present (GI), No Guarding due to palpation present (GI) and No Rebound tenderness present Auscultation: normal bowel sounds Objective Data Vital Signs Vital Signs: Vital Signs - 24 hr 11/10/24 14:00 11/10/24 20:00 11/10/24 20:45 Temperature 98.4 F 97.0 F L Pulse Rate 80 70 Respiratory Rate 20 16 Blood Pressure 140/70 134/62 Pulse Oximetry 99 96 Oxygen Delivery Room Air 11/11/24 05:41 11/11/24 08:00 Temperature 97.2 F L Pulse Rate 72 Respiratory Rate 16 Blood Pressure 160/66 H Pulse Oximetry 98 98 Oxygen Delivery Room Air Intake/Output Intake/Output: Intake & Output 11/08/24 11/09/24 11/10/24 11/11/24 23:59 23:59 23:59 23:59 Intake Total 2150 2150 3497 360 Balance 2150 2150 3497 360 Meds/Results Medications: Active Medications Generic Name Dose Route Start Last Admin Trade Name Freq PRN Reason Stop Dose Admin Hydrocodone Bitart/Acetaminophen 1 tab 11/08/24 17:00 11/11/24 13:27 Hydrocodone/Acetaminophen (*Crx) 5-325 Mg Tablet PO Not Given QID@0700,1300,1700,2100 VERONIQUE Aspirin 81 mg 11/09/24 17:00 11/11/24 08:25 Aspirin 81 Mg Enteric Tablet PO 81 mg BID VERONIQUE Administration Diclofenac Sodium 1 applic 11/08/24 14:40 Diclofenac Sodium 1% 100 Gm Gel (*Bkc) TOPICAL BID PRN back pain Diltiazem HCl 120 mg 11/08/24 14:50 11/11/24 08:25 Diltiazem Hcl Cd 120 Mg Cap.24hr PO 120 mg QAM VERONIQUE Administration Enoxaparin Sodium 40 mg 11/10/24 09:00 11/11/24 08:26 Enoxaparin 40 Mg/0.4 Ml Syringe SUB-Q 40 mg DAILY VERONIQUE Administration Hydrocortisone 1 applic 11/08/24 14:40 Hydrocortisone 1% 30 Gm Cream TOPICAL TID PRN rash Sodium Chloride 1,000 mls @ 80 mls/hr 11/09/24 12:10 11/11/24 05:35 Normal Saline Iv IV CONT 125 mls/hr .[id number] VERONIQUE Administration Losartan Potassium 37.5 mg 11/08/24 14:50 11/11/24 08:26 Losartan Potassium 12.5 Mg Tablet PO 37.5 mg DAILY VERONIQUE Administration Ondansetron HCl 4 mg 11/08/24 14:37 Ondansetron Inj 4 Mg/2 Ml Vial IV PUSH Q4H PRN Nausea And Vomiting Pantoprazole Sodium 40 mg 11/08/24 14:50 11/11/24 08:26 Pantoprazole 40 Mg Tablet PO 40 mg QAM VERONIQUE Administration Rosuvastatin Calcium 5 mg 11/09/24 21:00 11/10/24 20:51 Rosuvastatin 5 Mg Tablet PO 5 mg HS VERONIQUE Administration Senna/Docusate Sodium 2 tab 11/08/24 17:00 11/09/24 14:23 Senna/Docusate Sodium Tablet PO Not Given BID VERONIQUE Trimethoprim/Sulfamethoxazole 1 tab 11/10/24 21:00 11/11/24 08:26 Sulfamethoxazole/Trimethoprim 800/160 Mg Ds Tablet PO 11/15/24 09:01 1 tab Q12HR VERONIQUE Administration Radiology Results: ITS Impressions Abdomen/Pelvis CT 11/08/24 10:35 IMPRESSION: Findings suggesting a partial small bowel obstruction within the mid to distal jejunum, as detailed above. Findings within the left hemipelvis for which a dermoid cyst is suspected. Chest X-Ray 11/08/24 14:50 IMPRESSION: No focal infiltrate or effusion. Abdomen X-Ray 11/08/24 21:10 IMPRESSION: NG tube, in good position.
[2024-11-11 14:00] VITALS: BP 128/55; PULSE 65; RESP 18; TEMP 36.5; O2SAT 96
[2024-11-11 14:27] LABS: Anion Gap 9 mmol/L (4-12); Blood Urea Nitrogen 11 mg/dL (7-17); Calcium 7.9 mg/dL (8.4-10.2); Carbon Dioxide 28 mmol/L (22-30); Chloride 99 mmol/L (98-107); Estimated CRCL calculation 39 ml/min; Estimated Glomerular Filt Rate > 60; Glucose 114 mg/dL (65-110); Potassium 3.2 mmol/L (3.4-5.0); Sodium 136 mmol/L (137-145)
[2024-11-11] MEDS: SALINE 0.65% NAS SOLN 44 ML BTL 1 SPRAY NASAL (16:40)
[2024-11-11] MEDS: SENNA/DOCUSATE SODIUM TABLET 2 TAB PO (16:41)
--- NOTE | 2024-11-11 19:06 | P.PNIM_ITS ---
Progress Note: A&P Assessment and Plan (1) Gastroenteritis: Code(s): K52.9 - Noninfective gastroenteritis and colitis, unspecified Status: Acute Assessment and Plan: IV fluids, zofran prn surgery was consulted for possible sbo- no acute interventions needed NG tube that was previously inserted d/padilla and pt now on heart healthy diet. Now reporting no BM's and we'll consider laxatives and stool softeners. Continue to work with pt/ot (2) Acute UTI: Code(s): N39.0 - Urinary tract infection, site not specified Status: Acute Assessment and Plan: urine culture growing Enterobacter Cloacae compled. started on 1gm ceftriaxone 24h iv 11/08 Now on bacrum per sensitivities. (3) Atherosclerotic heart disease of [place] coronary artery without angina pectoris: Qualifiers: [place] vs. transplanted heart: [place] heart Qualified Code(s): I25.10 - Atherosclerotic heart disease of [place] coronary artery without angina pectoris Code(s): I25.10 - Atherosclerotic heart disease of [place] coronary artery without angina pectoris Status: Acute Assessment and Plan: Continue asa, statin (4) CAD (coronary artery disease): Code(s): I25.10 - Atherosclerotic heart disease of [place] coronary artery without angina pectoris Status: Acute Assessment and Plan: Continue cardizem, isosorbide, losartan (5) HLD (hyperlipidemia): Code(s): E78.5 - Hyperlipidemia, unspecified Status: Acute Assessment and Plan: continue home dose statin (6) Chronic GERD: Code(s): K21.9 - Gastro-esophageal reflux disease without esophagitis Status: Acute Assessment and Plan: protonix-will continue (7) Intertrochanteric fracture of left femur: Qualifiers: Encounter type: initial encounter Fracture type: closed Fracture alignment: nondisplaced Qualified Code(s): S72.145A - Nondisplaced inter trochanteric fracture of left femur, initial encounter for closed fracture Code(s): S72.142A - Displaced intertrochanteric fracture of left femur, initial encounter for closed fracture Status: Acute Assessment and Plan: discharged from the hospital to [facility] on 10/12 Aspirin 325 mg PO BID at d/c. completed rehab and was discharged home reports weak and off balance. Continue PT/OT. Time Spent With Patient Time with patient: 15 - 25 minutes Subjective Date/time seen: 11/11/24 12:06 Patient states she feels alright and has no distressful symptoms. needs to figure out her home situation as she's trying to avoid going back to an assisted living with sick people and her sink hasn't been fixed yet. will check with family tomorrow but may have to stay in the hospital till weekend. Interval history: Patient calm on bedrest and looks to be in no acute distress. Review of Systems Review of Systems: All systems reviewed & are unremarkable except as noted in HPI and below Exam Narrative: General: Fair appearing, gen muscle weakness. HEENT: Atraumatic, PERRL, EOMI, moist mucosa. NECK: Supple. Heart: Irregularly irregular, no murmurs. Lungs: Clear bilaterally. Abdomen: Soft, non-tender, non-distended, +ve BS X4 Quadrants. Skin: Warm and dry. No lesions. Neuro: Fairly well oriented, no focal neuro deficits noted. Objective Data Vital Signs Vital Signs: Vital Signs - 24 hr 11/10/24 20:00 11/10/24 20:45 11/11/24 05:41 Temperature 97.0 F L 97.2 F L Pulse Rate 70 72 Respiratory Rate 16 16 Blood Pressure 134/62 160/66 H Pulse Oximetry 96 98 Oxygen Delivery Room Air 11/11/24 08:00 11/11/24 14:00 Temperature 97.7 F Pulse Rate 65 Respiratory Rate 18 Blood Pressure 128/55 L Pulse Oximetry 98 96 Oxygen Delivery Room Air Intake/Output Intake/Output: Intake & Output 11/08/24 11/09/24 11/10/24 11/11/24 23:59 23:59 23:59 23:59 Intake Total 2150 2150 3497 600 Balance 2150 2150 3497 600 Meds/Results Medications: Active Medications Generic Name Dose Route Start Last Admin Trade Name Freq PRN Reason Stop Dose Admin Hydrocodone Bitart/Acetaminophen 1 tab 11/08/24 17:00 11/11/24 16:36 Hydrocodone/Acetaminophen (*Crx) 5-325 Mg Tablet PO Not Given QID@0700,1300,1700,2100 VERONIQUE Aspirin 81 mg 11/09/24 17:00 11/11/24 16:43 Aspirin 81 Mg Enteric Tablet PO 81 mg BID VERONIQUE Administration Diclofenac Sodium 1 applic 11/08/24 14:40 Diclofenac Sodium 1% 100 Gm Gel (*Bkc) TOPICAL BID PRN back pain Diltiazem HCl 120 mg 11/08/24 14:50 11/11/24 08:25 Diltiazem Hcl Cd 120 Mg Cap.24hr PO 120 mg QAM VERONIQUE Administration Enoxaparin Sodium 40 mg 11/10/24 09:00 11/11/24 08:26 Enoxaparin 40 Mg/0.4 Ml Syringe SUB-Q 40 mg DAILY VERONIQUE Administration Hydrocortisone 1 applic 11/08/24 14:40 Hydrocortisone 1% 30 Gm Cream TOPICAL TID PRN rash Losartan Potassium 37.5 mg 11/08/24 14:50 11/11/24 08:26 Losartan Potassium 12.5 Mg Tablet PO 37.5 mg DAILY VERONIQUE Administration Ondansetron HCl 4 mg 11/08/24 14:37 Ondansetron Inj 4 Mg/2 Ml Vial IV PUSH Q4H PRN Nausea And Vomiting Pantoprazole Sodium 40 mg 11/08/24 14:50 11/11/24 08:26 Pantoprazole 40 Mg Tablet PO 40 mg QAM VERONIQUE Administration Rosuvastatin Calcium 5 mg 11/09/24 21:00 11/10/24 20:51 Rosuvastatin 5 Mg Tablet PO 5 mg HS VERONIQUE Administration Senna/Docusate Sodium 2 tab 11/11/24 14:24 11/11/24 16:41 Senna/Docusate Sodium Tablet PO 2 tab BID PRN Administration Constipation Sodium Chloride 1 spray 11/11/24 14:24 11/11/24 16:40 Saline 0.65% Arshid Soln 44 Ml Btl NASAL 1 spray Q6HR PRN Administration Congestion Trimethoprim/Sulfamethoxazole 1 tab 11/10/24 21:00 11/11/24 08:26 Sulfamethoxazole/Trimethoprim 800/160 Mg Ds Tablet PO 11/15/24 09:01 1 tab Q12HR VERONIQUE Administration Radiology Results: ITS Impressions Abdomen/Pelvis CT 11/08/24 10:35 IMPRESSION: Findings suggesting a partial small bowel obstruction within the mid to distal jejunum, as detailed above. Findings within the left hemipelvis for which a dermoid cyst is suspected. Chest X-Ray 11/08/24 14:50 IMPRESSION: No focal infiltrate or effusion. Abdomen X-Ray 11/08/24 21:10 IMPRESSION: NG tube, in good position. Labs Labs: Laboratory Results - last 24 hr 11/11/24 14:10 Sodium 136 L Potassium 3.2 L Chloride 99 Carbon Dioxide 28 Anion Gap 9 BUN 11 Creatinine 0.68 L Estim Creat Clear Calc 39 Estimated GFR > 60 Glucose 114 H Calcium 7.9 L Quality VTE Prophylaxis VTE prophylaxis: mechanical ordered Hospitalist MIPS Advance Care Plan I have confirmed that the patient's Advanced Care Plan is present, code status is documented, or surrogate decision maker is listed in patient medical record.: Yes Medication Reconciliation I have utilized all available resources to obtain, update and review the patients current medications (includes all prescriptions, OTC, herbals, cannabis, and nutritional supplements).: Yes
[2024-11-11 22:00] VITALS: BP 139/60; PULSE 67; RESP 16; TEMP 37.1; O2SAT 97
[2024-11-11] MEDS: HYDROcodone/acetaminophen (*CRX) 5-325 MG TABLET 1 TAB PO (22:14)
[2024-11-11] MEDS: ROSUVASTATIN 5 MG TABLET PO (22:14)
[2024-11-11] MEDS: POTASSIUM CHLORIDE 20 MEQ ER TABLET 40 MEQ PO (22:17)
[2024-11-12 06:00] VITALS: BP 145/60; PULSE 67; RESP 18; TEMP 36.9; O2SAT 97
[2024-11-12] MEDS: ENOXAPARIN 40 MG/0.4 ML SYRINGE SUB-Q (09:12)
[2024-11-12] MEDS: dilTIAZem HCL CD 120 MG CAP.24HR PO (09:13)
[2024-11-12] MEDS: LOSARTAN POTASSIUM 12.5 MG TABLET 37.5 MG PO (09:13)
[2024-11-12] MEDS: SULFAMETHOXAZOLE/TRIMETHOPRIM 800/160 MG DS TABLET 1 TAB PO ×2 (09:14→20:55)
[2024-11-12] MEDS: PANTOPRAZOLE 40 MG TABLET PO (09:14)
[2024-11-12] MEDS: ASPIRIN 81 MG ENTERIC TABLET PO ×2 (09:14→18:01)
--- OUTSIDE RECORDS SUMMARY | 2024-11-12 09:45 | XMS_ITS | Referral Summary ---
Author Organization [facility] [address] Address [address] [place] [address] Care Team Providers Care Certified Coding Specialist Name Role Phone Lewis Stephens MD Primary Care Provider [phone] Encounters Date Type Department Care Team Description 11/08/2024 Orders Only [facility] [place] [facility] [address] [place] [address] Scanning, Provider 11/05/2024 Telephone Family Physicians [facility] [address] [place] [address] Lewis Stephens MD Additional Services Or Orders 08/19/2024 Telephone [facility] [address] [address] Curtis He MD orthopedics (rescheduling) from Last 3 Months Allergies Active Allergy Reactions Criticality Noted Date Comments Sulfa (Sulfonamide Antibiotics) Unknown 06/2018 Medications aspirin 81 mg chewable tablet chew 1 tablet by oral route every day 0 0 10/16/2013 Active omeprazole (PriLOSEC) 20 mg capsule take 1 capsule by oral route every day before a meal 0 0 10/16/2013 Active acetaminophen (TYLENOL EXTRA STRENGTH) 500 mg tablet take 2 tablet by oral route every 6 hours as needed 0 0 10/16/2013 Active valsartan (DIOVAN) 40 mg tablet Take 1 tablet (40 mg total) by mouth daily Active ergocalciferol (VITAMIN D) 50,000 unit capsule TAKE 1 CAPSULE BY MOUTH ONCE MONTHLY 11/22/2020 Active Tiadylt ER 120 mg 24 hr capsule TAKE 1 CAPSULE BY MOUTH EVERY DAY 90 capsule 3 06/17/2023 Active rosuvastatin (CRESTOR) 5 mg tablet Take 1 tablet (5 mg total) by mouth nightly 90 tablet 3 07/01/2024 Active dilTIAZem CD/XR/XT (dilTIAZem CD) 120 mg 24 hr capsule TAKE 1 CAPSULE BY MOUTH EVERY DAY 90 capsule 08/31/2024 Active Active Problems Problem Noted Date Diagnosed Date Carpal tunnel syndrome of left wrist 07/22/2024 Carpal tunnel syndrome of right wrist 07/22/2024 Myalgia 07/09/2023 Mixed hyperlipidemia 12/22/2021 Assessment & Plan (05/29/2024 4:47 PM CDT): Last LDL near range for CAD Encourage low-fat high-fiber diet Continue rosuvastatin 5 mg daily Localized edema 12/22/2020 H/O acute myocardial infarction 08/07/2017 PUD (peptic ulcer disease) 08/07/2017 Benign hypertension 07/23/2016 Overview (01/24/2017): HTN (hypertension), benign Assessment & Plan (05/29/2024 4:47 PM CDT): Stable, well controlled, blood pressure at goal Continue tidal 120 mg daily, valsartan 40 mg daily History of fall 07/23/2016 Overview (01/24/2017): Status post fall Adverse effect of drug 01/30/2016 Overview (01/24/2017): Medication side effects, subsequent encounter Postural lightheadedness 11/09/2015 Overview (01/24/2017): Postural dizziness with near syncope Assessment & Plan (05/29/2024 4:47 PM CDT): Not well controlled; has spells that are on and off, they do not last long, but severe enough they can increase risk of fall Continue to monitor blood pressure closely Encouraged care with standing up from sitting Coronary artery disease of n ative artery of [place] heart with stable angina pectoris 11/09/2015 Overview (01/24/2017): Coronary artery disease involving [place] coronary artery of [place] heart without angina pectoris Assessment & Plan (05/29/2024 4:47 PM CDT): Stable, well controlled; no chest pain or pressure; continue ASA 81 mg daily, rosuvastatin 5 mg daily Vertigo 11/09/2015 Overview (01/24/2017): Vertigo Sensorineural hearing loss (SNHL) of both ears 0 06/29/2015 Impairment of balance 10/26/2014 Overview (01/24/2017): Imbalance Resolved Problems Problem Noted Date Diagnosed Date Resolved Date Dyslipidemia 11/09/2015 12/22/2021 Overview (01/24/2017): Dyslipidemia Immunizations Name Administration Dates Next Due Influenza, Quadrivalent, Hig h Dose, Preservative Free, Intrr 06/05/2020 Influenza, Trivalent, High D ose, Split, Preservative Free, Intramuscular 08/18/2019,07/06/2018,07/05/2018,08/06 Influenza, Trivalent, IM (MDV) 09/09/2014 Influenza, Trivalent, Preser vative Free, Intramuscular 09/25/2015 Social History Tobacco Use Types Packs/Day Years Used Date Smoking Tobacco: Former Cigarettes Q uit: 2000 Smokeless Tobacco: Never Tobacco Cessation:Counseling Given: Not Answered Alcohol Use Standard Drinks/Week Comments No 0 (1 standard drink = 0.6 oz pur e alcohol) AUDIT-C Answer Date Recorded Q1: How often do you have a drink containing alcohol? Never 05/14/2024 Q2: How many drinks containi ng alcohol do you have on a typical day when you are drinking? Patient does not drink Q3: How often do you have si x or more drinks on one occasion? 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 Gender Identity Female 02/04/2024 1:26 PM CDT Sexual Orientation Not on file Last Filed Vital Signs Vital Sign Reading Time Taken Comments Blood Pressure 142/62 07/14/2024 2:32 PM CDT Pulse 63 07/14/2024 2:32 PM CDT Temperature 36.7 ??C (98.1 ??F) 05/14/2024 3:50 PM CD T Respiratory Rate 18 05/14/2024 3:50 PM CDT Oxygen Saturation 95% 07/14/2024 2:32 PM CDT Inhaled Oxygen Concentration - - Weight 59.9 kg (132 lb) 07/22/2024 10:39 AM CDT Height 157.5 cm (5' 2 ) 07/22/2024 10:39 AM CDT Body Mass Index 24.14 07/22/2024 10:39 AM CDT Plan of Treatment Not on file Procedures Procedure Name Priority Date/Time Associated Diagnosis Comments SCAN - RADIOLOGY/IMAGING 11/08/2024 from Last 3 Months Results * SCAN - RADIOLOGY/IMAGING (11/08/2024) Anatomical Region Laterality Modality Other Provider Scanning Edited Result - Final from Last 3 Months Insurance * Guarantor: Ronald Wakefield Adriana Account Type Relation to Patient Date of Phone Billing Address Personal/Family Self 1935 [address] [place] [address] MEDICARE [employer] * Guarantor: Ronald Wakefield Account Type Relation to Patient Date of Phone Billing Address Personal/Family Self [address] [place] [address] MEDICARE [employer] * Guarantor: Ronald Wakefield Account Type Relation to Patient Date of Phone Billing Address Personal/Family Self [address] [place] [id number] MEDICARE [facility] Advance Directives For more information, please contact: [phone] * Full Code (Latest Code Status on File) Date Activated Date Inactivated Comments 04/28/2018 10:35 AM 04/28/2018 2:01 PM Care Teams Certified Coding Specialist Relationship Specialty Start Date End [place] [address] PCP - General Family Medicine 05/14/24
--- OUTSIDE RECORDS SUMMARY | 2024-11-12 09:45 | XMS_ITS | Encounter Summary ---
Author Organization [facility] Healthcare Address [address] [place] [address] Care Team Providers Care Recovery Coordinator Name Role Phone Lewis Stephens MD Primary Care Provider [phone] Reason for Visit * Reason Onset Date Comments Additional Services Or Orders 11/05/2024 Encounter Details Date Type Department Care Team (Late st Contact Info) Description 11/05/2024 Telephone Family Physicians [address] [address] Lewis Stephens MD [address] [place] [address] Additional Services Or Orders Social History Tobacco Use Types Packs/Day Years Used Date Smoking Tobacco: Former Cigarettes Q uit: 1999 Smokeless Tobacco: Never Alcohol Use Standard Drinks/Week Comments No 0 [...] on file 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 HAILEY Stephens S CRUSHER * Telephone Encounter - Jaja Aranda - 11/05/2024 12:15 PM GLASS CRUSHER Additional Services or Orders Type of Service Requested:Occupational Therapy, Physical Therapy, and Home Health Duration/Number of Visits: needs to be evaluated Is a verbal order acceptable? yes Reason for Request (e.g. condition/symptom, date of COVID exposure if applicable): Displaced inter trochal fracture Details Regarding Additional Services (e.g. type of home health, type of equipment, type of test, etc.): Snf, PT & OT Where will services be performed? (if outside of the practice, facility name, address, phone/fax offacility): patients home Additional Comments: Darrel with [facility] states patient is being discharged from [facility] tomorrow 11/06 and HH has been ordered, so Darrel is asking if dr stephens will follow the patient for care and if so he needs a verbal order, his phone line is secured. Does message need to be routed? Yes-Action Needed S CRUSHER documented in this encounter Plan of Treatment Not on file documented as of this encounter Visit Diagnoses Not on filedocumented in this encounter Care Teams Recovery Coordinator Relationship Specialty Start Date [place] [address] PCP - General Family Medicine 05/14/24 documented as of this encounter
--- OUTSIDE RECORDS SUMMARY | 2024-11-12 09:45 | XMS_ITS | Clinical Summary ---
Author Organization [facility] [address] Address [address] [place] [address] Care Team Providers Care Lye Boiler Name Role Phone Lewis Stephens MD Primary Care Provider [phone] [phone] Allergies Active Allergy Reactions Criticality Noted Date [...] artery disease of n ative artery of [place] heart with stable angina pectoris 11/09/2015 Overview (01/24/2017): Coronary artery disease involving [place] coronary artery of [place] heart without angina pectoris Assessment & Plan [...] Date Dyslipidemia 11/09/2015 12/22/2021 Overview (01/24/2017): Dyslipidemia Encounters Date Type Department Care Team Description 11/08/2024 Orders Only [facility] Information Management [address] [place] [address] Scanning, Provider 11/05/2024 Telephone Family Physicians [facility] [address] [place] [address] Lewis Stephens MD Additional Services Or Orders 08/19/2024 Telephone [facility] [address] [facility] [address] [place] [address] Curtis He MD orthopedics (rescheduling) from Last 3 Months Immunizations Name Administration Dates Next Due Influenza, Quadrivalent, Hig h Dose, Preservative Free, Intrr 06/05/2020 Influenza, Trivalent, High D ose, Split, Preservative Free, Intramuscular 08/18/2019,07/06/2018,07/05/2018,08/06 Influenza, Trivalent, IM (MDV) 09/09/2014 Influenza, Trivalent, Preser vative Free, Intramuscular 09/25/2015 Surgical History Surgery Date Site/Laterality Comments PERCUTANEOUS TRANSLUMINAL CORONARY ANGIOPLASTY 10/21/1988 - 10/20/1989 Percutaneous Transluminal Coronary Angioplasty TOTAL KNEE ARTHROPLASTY 10/21/2005 - 10/20/2006 Right Bilateral Total Knee Replacement ANGIOPLASTY KNEE ARTHROSCOPY W/ LATERAL RELEASE 10/21/2012 - 10/20/2013 CATARACT EXTRACTION HYSTERECTOMY 10/21/1969 - 10/20/1970 N/A Medical History Medical History Date Comments Cardiovascular disease Coronary Artery Disease Myocardial infarction (HCC) 1988 Myoc ardial infarction Hypertension Hypertension HL (hearing loss) Tinnitus GERD (gastroesophageal reflux disease) Arthritis Osteoporosis Heart disease Mixed conductive and sensorineural hearing loss Heart attack (HCC) 1988 Family History Medical History Relation Name Comments Diabetes type II Father Diabetes me llitus type 2; Hypertension Father Hypertension; Transient ischemic attack Father Tr ansient ischemic attack; Diabetes type II Mother Diabetes me llitus type 2; Stroke Mother Stroke; Relation Name Status Comments Father Mother Social History Tobacco Use Types Packs/Day Years Used Date Smoking Tobacco: Former Cigarettes Q uit: 1999 Smokeless Tobacco: Never Tobacco Cessation:Counseling Given: Not [...] on file 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 Gender Identity Female 02/04/2024 1:26 PM CDT Sexual Orientation Not on file Obstetrics History Last Filed Vital Signs Vital Sign Reading [...] 07/22/2024 10:39 AM CDT Plan of Treatment Health Maintenance Due Date Last Done Comments Pneumococcal vaccine 65+ (1 of 2 - PCV) 1942 DTaP/Tdap/Td Vaccine (1 - Tdap) 1947 Hepatitis B Screening 1954 Zoster Vaccine (1 of 2) 1986 Well Visit 65+ 2001 Influenza Vaccine (#1) 2024 0, 08/18/2019, 07/06/2018, Additional history exists Depression Screening 05/14/2025 05/14/2024 Fall Risk Assessment 05/14/2025 05/14/2024 Procedures Procedure Name Priority Date/Time Associated Diagnosis Comments SCAN - RADIOLOGY/IMAGING 11/08/2024 from Last 3 Months Results * SCAN - RADIOLOGY/IMAGING (11/08/2024) Anatomical Region Laterality Modality Other us Provider Scanning Edited Result - Final from Last 3 Months Insurance * Guarantor: Ronald Wakefeild Adriana Account Type Relation to Patient Date of Phone Billing Address Personal/Family Self 1935 [address] [place] [address] MEDICARE [facility] * Guarantor: Twyla Ronald Adriana Account Type Relation to Patient Date of Phone Billing Address Personal/Family Self 1935 [address] [place] [address] MEDICARE [facility] * Guarantor: Ronald Wakefield Account Type Relation to Patient Date of Phone Billing Address Personal/Family Self 1935 [address] [place] [address] MEDICARE [employer] [place] Advance Directives For more information, please contact: [phone] * Full Code (Latest Code Status on File) Date Activated Date Inactivated Comments 04/28/2018 10:35 AM 04/28/2018 2:01 PM Care Teams Lye Boiler Relationship Specialty Start Date [place] [address] PCP - General Family Medicine 05/14/24
[2024-11-12 14:00] VITALS: BP 127/52; PULSE 70; RESP 18; TEMP 36.3; O2SAT 67
--- NOTE | 2024-11-12 14:54 | P.PNIM_ITS ---
Progress Note: A&P Assessment and Plan (1) Gastroenteritis: Code(s): K52.9 - Noninfective gastroenteritis and colitis, unspecified Status: Acute Assessment and Plan: Appears resolved with no diarrhea today or yesterday. Seen by general surgery and no acute interventions recommended. Initially on NG-tube but was d/c'd and pt now on heart healthy diet. Now reporting no BM's and we'll start laxatives and stool softeners. Encouraged with PT/OT. (2) Acute UTI: Code(s): N39.0 - Urinary tract infection, site not specified Status: Acute Assessment and Plan: urine culture growing Enterobacter Cloacae compled. started on 1gm ceftriaxone 24h iv 11/08 Now on bacrim per sensitivities. (3) Atherosclerotic heart disease of [place] coronary artery without angina pectoris: Qualifiers: [place] vs. transplanted heart: [place] heart Qualified Code(s): I25.10 - Atherosclerotic heart disease of [place] coronary artery without angina pectoris Code(s): I25.10 - Atherosclerotic heart disease of [place] coronary artery without angina pectoris Status: Acute Assessment and Plan: Continue asa, statin (4) CAD (coronary artery disease): Code(s): I25.10 - Atherosclerotic heart disease of [place] coronary artery without angina pectoris Status: Acute Assessment and Plan: Continue cardizem, isosorbide, losartan (5) HLD (hyperlipidemia): Code(s): E78.5 - Hyperlipidemia, unspecified Status: Acute Assessment and Plan: continue home dose statin (6) Chronic GERD: Code(s): K21.9 - Gastro-esophageal reflux disease without esophagitis Status: Acute Assessment and Plan: protonix continued. (7) Intertrochanteric fracture of left femur: Qualifiers: Encounter type: initial encounter Fracture type: closed Fracture alignment: nondisplaced Qualified Code(s): S72.145A - Nondisplaced intertrochanteric fracture of left femur, initial encounter for closed fracture Code(s): S72.142A - Displaced intertrochanteric fracture of left femur, initial encounter for closed fracture Status: Acute Assessment and Plan: discharged from the hospital to [facility] on 10/12 Aspirin 325 mg PO BID at d/c. completed rehab and was discharged home. Continue PT/OT. Fall precautions. Plan Possible discharge home tomorrow. Time Spent With Patient Time with patient: 15 - 25 minutes Subjective Date/time seen: 11/12/24 14:54 Patient states she feels alright but will not be able to go home today as she has no family to pick her up and they're still working on her house. States she will be ready tomorrow hopefully with her family. Interval history: Patient calm on bedrest and looks to be in no acute distress. Review of Systems Review of Systems: All systems reviewed & are unremarkable except as noted in HPI and below Exam Narrative: General: Well appearing, no acute distress but with some gen muscle weakness. HEENT: Atraumatic, PERRL, EOMI, moist mucosa. NECK: Supple. Heart: Irregularly irregular, no murmurs. Lungs: Clear bilaterally. Abdomen: Soft, non-tender, non-distended, +ve BS X4 Quadrants. Skin: Warm and dry. No lesions. Neuro: Fairly well oriented, no focal neuro deficits noted. Objective Data Vital Signs Vital Signs: Vital Signs - 24 hr 11/11/24 22:00 11/12/24 06:00 Temperature 98.7 F 98.4 F Pulse Rate 67 67 Respiratory Rate 16 18 Blood Pressure 139/60 145/60 H Pulse Oximetry 97 97 Intake/Output Intake/Output: Intake & Output 11/09/24 11/10/24 11/11/24 11/12/24 23:59 23:59 23:59 23:59 Intake Total 2150 3497 600 220 Output Total 250 Balance 2150 3497 350 220 Meds/Results Medications: Active Medications Generic Name Dose Route Start Last Admin Trade Name Freq PRN Reason Stop Dose Admin Hydrocodone Bitart/Acetaminophen 1 tab 11/08/24 17:00 11/12/24 11:44 Hydrocodone/Acetaminophen (*Crx) 5-325 Mg Tablet PO Not Given QID@0700,1300,1700,2100 VERONIQUE Aspirin 81 mg 11/09/24 17:00 11/12/24 09:14 Aspirin 81 Mg Enteric Tablet PO 81 mg BID VERONIQUE Administration Diclofenac Sodium 1 applic 11/08/24 14:40 Diclofenac Sodium 1% 100 Gm Gel (*Bkc) TOPICAL BID PRN back pain Diltiazem HCl 120 mg 11/08/24 14:50 11/12/24 09:13 Diltiazem Hcl Cd 120 Mg Cap.24hr PO 120 mg QAM VERONIQUE Administration Enoxaparin Sodium 40 mg 11/10/24 09:00 11/12/24 09:12 Enoxaparin 40 Mg/0.4 Ml Syringe SUB-Q 40 mg DAILY VERONIQUE Administration Hydrocortisone 1 applic 11/08/24 14:40 Hydrocortisone 1% 30 Gm Cream TOPICAL TID PRN rash Losartan Potassium 37.5 mg 11/08/24 14:50 11/12/24 09:13 Losartan Potassium 12.5 Mg Tablet PO 37.5 mg DAILY VERONIQUE Administration Ondansetron HCl 4 mg 11/08/24 14:37 Ondansetron Inj 4 Mg/2 Ml Vial IV PUSH Q4H PRN Nausea And Vomiting Pantoprazole Sodium 40 mg 11/08/24 14:50 11/12/24 09:14 Pantoprazole 40 Mg Tablet PO 40 mg QAM VERONIQUE Administration Rosuvastatin Calcium 5 mg 11/09/24 21:00 11/11/24 22:14 Rosuvastatin 5 Mg Tablet PO 5 mg HS VERONIQUE Administration Senna/Docusate Sodium 2 tab 11/11/24 14:24 11/11/24 16:41 Senna/Docusate Sodium Tablet PO 2 tab BID PRN Administration Constipation Sodium Chloride 1 spray 11/11/24 14:24 11/11/24 16:40 Saline 0.65% Rashid Soln 44 Ml Btl NASAL 1 spray Q6HR PRN Administration Congestion Trimethoprim/Sulfamethoxazole 1 tab 11/10/24 21:00 11/12/24 09:14 Sulfamethoxazole/Trimethoprim 800/160 Mg Ds Tablet PO 11/15/24 09:01 1 tab Q12HR VERONIQUE Administration Radiology Results: ITS Impressions Abdomen/Pelvis CT 11/08/24 10:35 IMPRESSION: Findings suggesting a partial small bowel obstruction within the mid to distal jejunum, as detailed above. Findings within the left hemipelvis for which a dermoid cyst is suspected. Chest X-Ray 11/08/24 14:50 IMPRESSION: No focal infiltrate or effusion. Abdomen X-Ray 11/08/24 21:10 IMPRESSION: NG tube, in good position. Quality VTE Prophylaxis VTE prophylaxis: mechanical ordered Hospitalist [facility] Advance Care Plan I have confirmed that the patient's Advanced Care Plan is present, code status is documented, or surrogate decision maker is listed in patient medical record.: Yes Medication Reconciliation I have utilized all available resources to obtain, update and review the patients current medications (includes all prescriptions, OTC, herbals, canna bis, and nutritional supplements).: Yes
[2024-11-12] MEDS: SALINE 0.65% NAS SOLN 44 ML BTL 1 SPRAY NASAL (18:01)
[2024-11-12] MEDS: ROSUVASTATIN 5 MG TABLET PO (20:55)
[2024-11-12 22:00] VITALS: BP 145/52; PULSE 69; RESP 16; TEMP 36.2; O2SAT 95
[2024-11-13 06:00] VITALS: BP 141/47; PULSE 66; RESP 16; TEMP 36.6; O2SAT 95
[2024-11-13 07:19] LABS: Anion Gap 7 mmol/L (4-12); Blood Urea Nitrogen 9 mg/dL (7-17); Calcium 8.8 mg/dL (8.4-10.2); Carbon Dioxide 32 mmol/L (22-30); Chloride 99 mmol/L (98-107); Estimated CRCL calculation 34 ml/min; Estimated Glomerular Filt Rate > 60; Glucose 95 mg/dL (65-110); Sodium 138 mmol/L (137-145)
[2024-11-13] MEDS: dilTIAZem HCL CD 120 MG CAP.24HR PO (09:07)
[2024-11-13] MEDS: PANTOPRAZOLE 40 MG TABLET PO (09:07)
[2024-11-13] MEDS: SULFAMETHOXAZOLE/TRIMETHOPRIM 800/160 MG DS TABLET 1 TAB PO (09:07)
[2024-11-13] MEDS: LOSARTAN POTASSIUM 12.5 MG TABLET 37.5 MG PO (09:07)
[2024-11-13] MEDS: ASPIRIN 81 MG ENTERIC TABLET PO (09:07)
[2024-11-13] MEDS: ENOXAPARIN 40 MG/0.4 ML SYRINGE SUB-Q (09:08)
[2024-11-13] MEDS: SALINE 0.65% NAS SOLN 44 ML BTL 1 SPRAY NASAL (09:19)
--- NOTE | 2024-11-13 13:14 | PM.DS ---
DS: Admitting Diagnosis Discharge Date 11/01/2024. Admitting Diagnosis Gastroenteritis. DS: Discharge Diagnosis Discharge Diagnosis (1) Gastroenteritis: Code(s): K52.9 - Noninfective gastroenteritis and colitis, unspecified Status: Acute Assessment and Plan: Acute. (2) Acute UTI: Code(s): N39.0 - Urinary tract infection, site not specified Status: Acute Assessment and Plan: Acute. (3) Atherosclerotic heart disease of viejas coronary artery without angina pectoris: Qualifiers: [place] vs. transplanted heart: viejas heart Qualified Code(s): I25.10 - Atherosclerotic heart disease of viejas coronary artery without angina pectoris Code(s): I25.10 - Atherosclerotic heart disease of viejas coronary artery without angina pectoris Status: Acute Assessment and Plan: Chronic. (4) CAD (coronary artery disease): Code(s): I25.10 - Atherosclerotic heart disease of viejas coronary artery without angina pectoris Status: Acute Assessment and Plan: Chronic. (5) HLD (hyperlipidemia): Code(s): E78.5 - Hyperlipidemia, unspecified Status: Acute Assessment and Plan: Chronic. (6) Chronic GERD: Code(s): K21.9 - Gastro-esophageal reflux disease without esophagitis Status: Acute Assessment and Plan: Chronic. (7) Intertrochanteric fracture of left femur: Qualifiers: Encounter type: initial encounter Fracture type: closed Fracture alignment: nondisplaced Qualified Code(s): S72.145A - Nondisplaced intertrochanteric fracture of left femur, initial encounter for closed fracture Code(s): S72.142A - Displaced intertrochanteric fracture of left femur, initial encounter for closed fracture Status: Acute Assessment and Plan: Acute on Chronic. Plan Discharge home on home health. DS: Summary Hospital Course Reason for hospitalization: Gastroenteritis. Hospital Course: Patient presents to the hospital with reports of nausea, vomiting and diarrhea for the last 2 days prior to presentation. She denied any fevers, chills, are abdominal pain. Patient lives alone and reported feeling very weak. She had sustained a femoral neck fracture in September and was discharged rehab on October 23. Her mobility has still not returned to baseline. IN ED: WBC 18.1. Urinalysis was indicative of possible infection. acute Viral swabs were negative. CT abdomen pelvis showed nonspecific distended loops of bowel with air fluid levels which may represent ileus or nonspecific enteritis. Patient was started antibiotics (Ceftriaxone [id number]) and given IV fluids for hydration. Patient's urine culture grew Enterobacter cloacae complex, that was sensitive to ceftriaxone on Bactrim, and patient was discharged home on Bactrim to complete the antibiotic treatment. Patient was seen by General surgery and after evaluating patient and CT abd/pelvis, her symptoms were suspected to be likely secondary to gastroenteritis rather than ileus. With patient reporting improvement in symptoms, she was slowly started on a diet and has been able to tolerate her regular diet without any GI discomfort. Her diarrhea and nausea resolved 2-3 days prior to her discharge and patient actually had to be given a laxative to have a bowel movement the day before her discharge. She worked with PT and OT with the patient's recent history of left hip fracture. Discharge home with PT OT was recommended and patient was discharged stable home with PT OT treatment, under no acute distressful symptoms were noted or reported prior to her discharge. Patient was medically stable for discharge with all other chronic conditions remaining stable inpatient. Status at Discharge Functional status at discharge: uses cane/walker Overall status at discharge: patient is progressing back to baseline Time Spent with Patient Time attestation: Total time spent providing and/or coordinating discharge services: Time spent: Greater than 30 minutes Exam Narrative: General: Well appearing, no acute distress but with some gen muscle weakness. HEENT: Atraumatic, PERRL, EOMI, moist mucosa. NECK: Supple. Heart: Irregularly irregular, no murmurs. Lungs: Clear bilaterally. Abdomen: Soft, non-tender, non-distended, +ve BS X4 Quadrants. Skin: Warm and dry. No lesions. Neuro: Fairly well oriented, no focal neuro deficits noted. DS: Data Data Completed and Pending Labs on day of discharge: Labs from last 24 hours 11/13/24 06:23 Sodium 138 Potassium 4.0 Chloride 99 Carbon Dioxide 32 H Anion Gap 7 BUN 9 Creatinine 0.78 Estim Creat Clear Calc 34 Estimated GFR > 60 Glucose 95 Calcium 8.8 Discharge Plan Discharge Attending physician on discharge: Ignacio Alvarez Discharging Clinician: Goldie De La Torre Anticipated Discharge Date/Time: 11/13/24 13:20 Patient Disposition: Home Health Service Activity: as tolerated Diet: as tolerated Discharge Instructions: Per Care Coordination. [facility]PT[facility]OT eval and treat today. [phone]. RN please fax discharge instructions to: [phone] Patient Instructions: Antibiotic Form Patient Language: Lao Stand Alone Forms: General Discharge Information Follow-up/Referrals: Angelo,MD Lewis [Primary Care Provider] - 1 Week Discharge Medications: New sulfamethoxazole-trimethoprim 800-160 mg Tablet 1 tab PO Q12HR Qty: 4 0RF Continued diclofenac sodium [Voltaren Arthritis Pain] 1 % Gel 2 g TOPICAL BID PRN (Reason: back pain) Patient Comments: for back pain Rx Instructions: apply to back as needed for pain sennosides-docusate sodium [Senokot-S] 8.6-50 mg Tablet 2 tab PO BID Qty: 60 0RF diltiazem HCl 120 mg capsule,extended release 24hr 120 mg PO Q24H Qty: 30 0RF Rx Instructions: TAKE 1 CAPSULE BY MOUTH EVERY DAY hydrocortisone 1 % cream 1 applic topical TID PRN (Reason: rash) Qty: 28.35 0RF omeprazole 20 mg capsule,delayed release(DR/EC) 20 mg PO DAILY rosuvastatin 5 mg tablet 5 mg PO HS valsartan 40 mg tablet 40 mg PO DAILY aspirin 325 mg Tablet,Delayed Release (Dr/Ec) 81 mg PO BID valacyclovir [Valtrex] 500 mg tablet 500 mg PO Q12H PRN (Reason: outbreak) 3 Days Qty: 24 1RF ergocalciferol (vitamin D2) 1,250 mcg (50,000 unit) capsule See Rx Instructions .ROUTE .COMPLEX Qty: 3 2RF Dose Instruction: TAKE 1 CAPSULE BY MOUTH ONCE MONTHLY Patient Comments: Last taken 10/06/24 Rx Instructions: TAKE 1 CAPSULE BY MOUTH ONCE MONTHLY atorvastatin 10 mg Tablet 5 mg PO DAILY Qty: 30 0RF Patient Comments: allergic to medication hydrocodone-acetaminophen 5-325 mg Tablet 1 tablet PO QID@0700,1300,1700,2100 Qty: 18 0RF pantoprazole 40 mg Tablet,Delayed Release (Dr/Ec) 40 mg PO QAM Qty: 30 0RF losartan 25 mg Tablet 37.5 mg PO DAILY Qty: 30 0RF Date of admission: 11/09/24 10:13 Primary Care Provider: lEieLewis Admitting Provider: Vannessa Downing Attending physician on admission: Vannessa Downing Condition: Stable Quality If No VTE Prophylaxis Answer both mechanical and pharmacologic: Reason no mechanical VTE proph: low risk/not indicated Reason no pharmacologic proph: low risk/not indicated Hospitalist MIPS Heart Failure (Exclusion) Patient has history of Heart Transplant or Left Ventricular Assistive Device?: No IF YES, STOP HERE Heart Failure (Qualifier) Patient has current or prior documentation of LVEF less than or equal to 40%, or mod/servere depressed LVSF?: No IF NO, STOP HERE
== END 2024-11-13 16:00 | disposition home health service (06) | DRG 392 ==
LOC: ANHED 06:13 → ANH3MEDSUR 08:37
PROVIDERS: Nurse Practitioner Family; Admitting Provider Internal Medicine; Emergency Provider Emergency Medicine; PCP Hospitalist; Visit Provider Nurse Practitioner Adult Health
DX: K52.9 Noninfective gastroenteritis and colitis, unspecified (principal); N39.0 Urinary tract infection, site not specified; I25.10 Atherosclerotic heart disease of native coronary artery without angina pectoris; E86.0 Dehydration; B96.89 Other specified bacterial agents as the cause of diseases classified elsewhere; I10 Essential (primary) hypertension; E78.5 Hyperlipidemia, unspecified; K21.9 Gastro-esophageal reflux disease without esophagitis; J45.909 Unspecified asthma, uncomplicated; M81.0 Age-related osteoporosis without current pathological fracture; M54.16 Radiculopathy, lumbar region; H90.6 Mixed conductive and sensorineural hearing loss, bilateral; Z87.891 Personal history of nicotine dependence; Z95.5 Presence of coronary angioplasty implant and graft; Z96.651 Presence of right artificial knee joint; Z96.1 Presence of intraocular lens; Z98.42 Cataract extraction status, left eye; Z98.41 Cataract extraction status, right eye; Z90.49 Acquired absence of other specified parts of digestive tract; Z90.710 Acquired absence of both cervix and uterus
CPT/HCPCS: 36415; 71045; 74177; 80048; 80053; 81001; 83605; 83690; 85025; 85027; 87040; 87045; 87086; 87186; 87427; 87449; 87493; 87637; 96361; 96365; 96375; 96376; 97110; 97161; 97165; 97530; 97535; 99285; A9270; G0378; J0696; J1650; J2405; J7030; Q9967

== ENCOUNTER 2025-04-25 08:59 | Emergency (ER) | payer MEDICARE, OTHER, SELFPAY ==
--- NOTE | ~2025-04-25 | CT_ITS ---
CTA brain carotid Ordering provider: Alvaro Santiago MD History: . Hypertension, visual changes, headache . Comparison: 04/03/2022, noncontrast CT of the brain only. Reference was made to a carotid duplex ultra sound dated 11/01/2014 Technique: CT angiogram head and neck was performed following timed intravenous injection of contrast . Thin slice axial images and reformatted coronal images were obtained. Three dimensional reformatted images of the brain were also obtained using a [employer] workstation. DLP: 1546 mGy-cm FINDINGS: HEAD: --ANTERIOR AND MIDDLE CEREBRAL ARTERIES AND BRANCHES: Mild atheromatous disease without significant s tenosis. --INTERNAL CAROTID ARTERIES: Moderate atheromatous disease bilaterally resulting in mild stenosis but no occlusion. --BASILAR ARTERY AND BRANCHES: Moderate atheromatous disease which results in mild narrowing but no o cclusion. --POSTERIOR CEREBRAL ARTERIES: Normal caliber and contour --POSTERIOR COMMUNICATING ARTERIES: Not well visualized likely related to congenital absence or small size. --ANEURYSM: None visualized. --BRAIN: The ventricles are enlarged. The dilatation of the ventricles is proportional to the degree of sulcal prominence, not uncommon in the senescent brain. Decreased attenuation is identified within the periventricular white matter, likely secondary to micr ovascular ischemic disease, in a patient of this age. There is no mass, mass effect or midline shift. There is no abnormal extra-axial fluid collection or intracranial hemorrhage. Opacification of the left sphenoid sinus. Remaining paranasal sinuses are clear. The mastoid air cells are congenitally small but otherwise well aerated. No acute displaced fractures within the overlying cranium. NECK: --RIGHT CERVICAL CAROTID SYSTEM: Moderate atheromatous disease of the carotid bulb and proximal inter nal carotid artery. Percent stenosis per NASCET criteria is 42% No carotid dissection. --LEFT CERVICAL CAROTID SYSTEM: Severe atheromatous disease of the carotid bulb and proximal internal carotid artery. Percent stenosis per NASCET criteria is 68% No carotid dissection. --VERTEBRAL ARTERIES: Severe atheromatous disease at their origins bilaterally. --VISUALIZED AORTIC ARCH AND BRANCHING VESSELS: Severe atheromatous disease but no significant stenos is. --SOFT TISSUES: Heterogeneous attenuation within the thyroid gland. --CERVICAL SPINE: Age appropriate degenerative changes. IMPRESSION: 1. Significant calcified atherosclerotic disease, as detailed above. 2. Percent stenosis per NASCET criteria is 42% on the right and 68% on the left. 3. No acute intracranial hemorrhage or suspicious mass effect. 4. Inflammatory sinus disease. Reviewed, dictated and finalized at location A. IMPRESSION: 1. Significant calcified atherosclerotic disease, as detailed above. 2. Percent stenosis per NASCET criteria is 42% on the right and 68% on the l eft. 3. No acute intracranial hemorrhage or suspicious mass effect. 4. Inflammatory sinus disease.
[2025-04-25 09:00] VITALS: BP 163/115; PULSE 79; RESP 19; TEMP 36.6; O2SAT 98
--- NOTE | 2025-04-25 09:07 | ECG_ITS ---
Test Date: 2025-04-25 09:22:19 Measurements Intervals [place] Rate: 76 P: 84 NM: 178 QRS: 17 QRSD: 78 T: 31 QT: 352 QTc: 397 Interpretive Statements SINUS RHYTHM WITH MARKED SINUS ARRHYTHMIA Compared to ECG 10/07/2024 17:41:57 No significant changes Electronically Signed On 04-25-2025 13:50:51 CDT by Jacques Harvey M.D.
--- OUTSIDE RECORDS SUMMARY | 2025-04-25 09:14 | XMS_ITS ---
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 Name Role Phone Kitty Reynolds Unavailable Georgina Carrera Unavailable [phone] Functional Status No Results Mental Status No Results Allergies and Intolerances Name Onset Date Reaction Severity No Known Allergies (Allergy) SatOct 23 16:42:00 EST 2024 Encounters Program Name Primary Diagnosis Admission Date/Time Dis charge Date/Time [facility] SatOct 23 10:15:00 EST 2024Nov 06 09:45:00 EST 2024 Immunizations Name Dates Status TST-PPD intradermal SatOct 26 01:00:00 EST 2024 Completed TST-PPD intradermal Sat Oct 24 01:00:00 EST 2024 Completed TST-PPD intradermal Sat Oct 31 01:00:00 EST 2024 Completed TST-PPD intradermal SatNov 02 01:00:00 2024 Completed Medications Medication Directions Start Date End Date [place] Nasal 0.65 % spray aerosol 1 spray AEROSOL, SPRAY (ML) Intranasal PRN Every 1 Hour Indication: Dry nasal (ok to keep at bedside per provider) SatNov 02 16:52:00 EST 2024Nov 06 01:00:00 EST 2024 aspirin 325 mg tablet,delayed release 1 TABLET TABLET, DELAYED RELEASE (ENTERIC COATED) Oral 2 Times Daily for 12 Days Indication: clot prevention SatOct 27 15:55:00 EST 2024Nov 06 01:00:00 EST 2024 aspirin 81 mg tablet,delayed release 1 tab TABLET, DELAYED RELEASE (ENTERIC COATED) Oral 1 Time Daily Indication: preventive maintenance SatNov 09 07:00:00 EST 2024Nov 06 01:00:00 EST 2024 Coricidin HBP Chest Congestion-Cough 10 mg-200 mg capsule 2 cap CAPSULE Oral PRN Every 4 Hours Indication: PRN cough congestion SatOct 27 15:59:00 EST 2024Nov 06 01:00:00 EST 2024 TubersoL 5 tub. unit/0.1 mL intradermal injection solution Read Results VIAL (ML) Other 1 Time Weekly for 2 Weeks Indication: rule out tb Read results between 48-72 hours after 1st and 2nd (1 week apart). Any reading of 10mm or greater results in a positive test, an x-ray will need to be ordered as a follow up. SatOct 26 07:00:00 2024Nov 06 01:00:00 EST 2024 guaiFENesin 100 mg/5 mL oral liquid 10 mL LIQUID (ML) Oral PRN Every 6 Hours for 5 Days Indication: Cough SatOct 26 23:30:00 2024Oct 27 15:56:00 EST 2024 docusate sodium 100 mg capsule 100 mg CAPSULE Oral 1 Time Daily Indication: Constipation SatOct 26 23:30:00 2024Nov 06:00:00 EST 2024 TubersoL 5 tub. unit/0.1 mL intradermal injection solution 0.1 ml VIAL (ML) Intradermal 1 Time Weekly for 2 Weeks Indication: rule out TB 1st injection on admission, then one week after. Read between 48 and 72 hours SatOct 24 07:00:00 2024Nov 06:00:00 EST 2024 HYDROcodone 5 mg-acetaminophen 325 mg tablet 1 TABLET TABLET Oral PRN Every 6 Hours Indication: pain *DO NOT EXCEED 3GM APAP/DAY FROM ALL SOURCES* SatOct 24 18:50:00 2024Nov 06 01:00:00 EST 2024 Dulcolax (bisacodyl) 10 mg rectal suppository 1 suppository SUPPOSITORY, RECTAL Rectal PRN 1 Time Daily Indication: Constipation SatOct 24 17:00:00 2024Nov 06 01:00:00 EST 2024 atorvastatin 10 mg tablet 0.5 TABLET TAB LET Oral 1 Time Daily Indication: HDL SatOct 24 07:00:00 2024Nov 06 01:00:00 EST 2024 HYDROcodone 5 mg-acetaminophen 325 mg tablet 1 TABLET TABLET Oral 4 Times Daily Indication: pain *DO NOT EXCEED 3GM APAP/DAY FROM ALL SOURCES* SatOct 23 16:40:00 EST 2024Oct 24 18:51:00 EST 2024 aspirin 325 mg tablet,delayed release 1 TABLET TABLET, DELAYED RELEASE (ENTERIC COATED) Oral 2 Times Daily Indication: clot prevention SatOct 23 16:40:00 EST 2024 TuOct 27 15:57:00 EST 2024 losartan 25 mg tablet 1.5 TABLETS TABLET Oral 1 Time Daily Indication: HTN SatOct 23 16:40:00 EST 2024Nov 06 01:00:00 EST 2024 pantoprazole 40 mg tablet,delayed release 1 TABLET TABLET, DELAYED RELEASE (ENTERIC COATED) Oral 1 Time Daily Indication: GERD SatOct 23 16:40:00 EST 2024Nov 06 01:00:00 EST 2024 isosorbide mononitrate ER 30 mg tablet,extended release 24 hr 0.5 TABLET TABLET, EXTENDED RELEASE 24 HR Oral 1 Time Daily Indication: angina 0.5 TABLET= 15MG SatOct 23 16:40:00 EST 2024Nov 06 01:00:00 EST 2024 diclofenac 1 % topical gel 2GM GEL (GRAM ) Topical PRN 2 Times Daily Indication: PAIN APPLY TO BACK SatOct 23 16:40:00 EST 2024Nov 06 01:00:00 EST 2024 valACYclovir 500 mg tablet 1 TABLET TABL ET Oral PRN Every 12 Hours Indication: OUTBREAK SatOct 23 16:40:00 EST 2024Nov 06 01:00:00 EST 2024 ergocalciferol (vitamin D2) 1,250 mcg (50,000 unit) capsule 1 CAPSULE CAPSULE Oral 1 Time Monthly Indication: supplement SatNov 06 07:00:00 EST 2024Nov 06 01:00:00 EST 2024 Stimulant Laxative Plus 8.6 mg-50 mg tablet 2 TABLETS TABLET Oral 2 Times Daily Indication: constipation SatOct 23 16:40:00 EST 2024Oct 26 23:44:00 EST 2024 hydrocortisone 1 % topical cream 1 APPLICATION CREAM (GRAM) Topical PRN 3 Times Daily Indication: RASH SatOct 23 16:40:00 EST 2024Nov 06 01:00:00 EST 2024 dilTIAZem CD 120 mg capsule,extended release 24 hr 1 CAPSULE CAPSULE, EXT RELEASE 24 HR Oral Every 24 Hours Indication: HTN SatOct 23 16:40:00 EST 2024Nov 06 01:00:00 EST 2024 Problems Active Concerns * Atherosclerotic heart disease of [place] coronary artery without angina pectoris* Code: * Start Date: SatOct 23 00:00:00 EST 2024 * End Date: * Text: * Presence of other bone and tendon implants* Code: * Start Date: SatOct 23 00:00:00 EST 2024 * End Date: * Text: * Unspecified fall, subsequent encounter* Code: * Start Date: SatOct 23 00:00:00 EST 2024 * End Date: * Text: * Displaced intertrochanteric fracture of left femur, subsequent encounter for closed fracture with routine healing* Code: * Start Date: SatOct 23 00:00:00 EST 2024 * End Date: * Text: * Gastro-esophageal reflux disease without esophagitis* Code: * Start Date: SatOct 23 00:00:00 EST 2024 * End Date: * Text: * Hyperlipidemia, unspecified* Code: * Start Date: SatOct 23 00:00:00 EST 2024 * End Date: * Text: * Anemia, unspecified* Code: * Start Date: SatOct 23 00:00:00 EST 2024 * End Date: * Text: * Personal history of nicotine dependence* Code: * Start Date: SatOct 23 00:00:00 EST 2024 * End Date: * Text: * Age-related osteoporosis without current pathological fracture* Code: * Start Date: SatOct 23 00:00:00 EST 2024 * End Date: * Text: * Mixed conductive and sensorineural hearing loss, bilateral* Code: * Start Date: SatOct 23 00:00:00 EST 2024 * End Date: * Text: * Hypertensive heart disease without heart failure* Code: * Start Date: SatOct 23 00:00:00 EST 2024 * End Date: * Text: * Presence of coronary angioplasty implant and graft* Code: * Start Date: SatOct 23 00:00:00 EST 2024 * End Date: * Text: * Dependence on supplemental oxygen* Code: * Start Date: SatOct 23 00:00:00 EST 2024 * End Date: * Text: * Rash and other nonspecific skin eruption* Code: * Start Date: SatOct 23 00:00:00 EST 2024 * End Date: * Text: * 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* Code: * Start Date: SatOct 23 00:00:00 EST 2024 * End Date: * Text: * 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 * [facility]- Michelle will be involved in discharge planning.* Code: * Start Date: SatNov 03 00:00:00 2024 * End Date: * Text: [facility]Social Services- Michelle will be involved in discharge planning. * [facility]Social Services- Michelle's mobility level is different than prior level due to current medical condition.* Code: * Start Date: SatNov 03 00::00 2024 * End Date: * Text: L[facility]_Social Services- Michelle's mobility level is different than prior level due to current medical condition. * [facility]_Social Services- Michelle has family/friends who are supportive.* Code: * Start Date: SatNov 03 00:00:00 2024 * End Date: * Text: LSS_Social Services- Michelle has family/friends who are supportive. * [facility]Social Services- Michelle will be involved in goal development to the best of his or her ability.* Code: * Start Date: SatNov 03 00:00:00 2024 * End Date: * Text: LSS_Social Services- Michelle will be involved in goal development to the best of his or her ability. * LSS_ADLs - Michelle has ADL selfcare deficit related to decreased mobility and muscle weakness* Code: * Start Date: SatNov 03 00:00:00 2024 * End Date: * Text: LSS_ADLs - Michelle has ADL selfcare deficit related to decreased mobility and muscle weakness * LSS_Skin Integrity - (Potential Alteration of)- Michelle is at risk for developing impaired skin integrity.* Code: * Start Date: SatNov 03:00:00 2024 * End Date: * Text: LSS_Skin Integrity - (Potential Alteration of)- Michelle is at risk for developing impaired skin integrity. * LSS_Pain - Michelle is experiencing pain or is at high risk for pain.* Code: * Start Date: SatNov 03 00:00:00 2024 * End Date: * Text: LSS_Pain - Michelle is experiencing pain or is at high risk for pain. * LSS_Falls - Michelle is at risk for falls/injury as evidenced by: history of falls, cognitive status/behavior, vision status, continence, mobility, balance.* Code: * Start Date: SatNov 03 00:00:00 EST 2024 * End Date: * Text: LSS_Falls - Michelle is at risk for falls/injury as evidenced by: history of falls, cognitive status/behavior, vision status, continence, mobility, balance. Resolved Concerns * Problem Coronary angioplasty status* Code: * Start Date: SatOct 23 00:00:00 2024 * End Date: SatOct 26 00:00:00 EST 2024 * Problem Essential (primary) hypertension* Code: * Start Date: SatOct 23 00:00:00 EST 2024 * End Date: SatOct 26 00:00:00 EST 2024 * Problem Unspecified hearing loss, unspecified ear* Code: * Start Date: SatOct 23 00:00:00 2024 * End Date: SatOct 26 00:00:00 2024 Vital Signs Vital Sign Measurement Date Systolic Blood Pressure 165.00 mm[Hg] SatNov 06 10:45:13 2024 Diastolic Blood Pressure 79.00 mm[Hg] SatNov 06 10:45:13 EST 2024 Pulse Oximetry 94.00 % SatNov 06 10:45 :13 EST 2024 Heart Rate 88.00 /min SatNov 06 10:45 :13 EST 2024 Body temperature 98.00 [degF] SatNov 06 10:4 5:13 EST 2024 Respiratory rate 18.00 /min SatNov 06 10:4 5:13 2024 Systolic Blood Pressure 165.00 mm[Hg] SatNov 06 09:11:12 EST 2024 Diastolic Blood Pressure 79.00 mm[Hg] SatNov 06 09:11:12 EST 2024 Systolic Blood Pressure 135.00 mm[Hg] SatNov 05:13:51 EST 2024 Diastolic Blood Pressure 59.00 mm[Hg] [facility] Nov 05 23:13:51 EST 2024 Pulse Oximetry 97.00 % [facility] Nov 05 23:13 :51 EST 2024 Heart Rate 72.00 /min [facility] Nov 05 23:13 :51 2024 Body temperature 98.20 [degF] [facility] Nov 05 23:1 3:51 EST 2024 Respiratory rate 18.00 /min [facility] Nov 05 23:1 3:51 EST 2024 Systolic Blood Pressure 135.00 mm[Hg] SatNov 05 20:36:05 EST 2024 Diastolic Blood Pressure 59.00 mm[Hg] [facility] Nov 05 20:36:05 EST 2024 Body weight 135.80 [lb_av] SatNov 05 15:06 :31 EST 2024 Systolic Blood Pressure 139.00 mm[Hg] [facility] Nov 05 11:58:55 EST 2024 Diastolic Blood Pressure 60.00 mm[Hg] [facility] Nov 05 11:58:55 2024 Pulse Oximetry 95.00 % [facility] Nov 05 11:58 :55 2024 Heart Rate 76.00 /min [facility] Nov 05 11:58 :55 2024 Body temperature 98.20 [degF] [facility] Nov 05 11:5 8:55 EST 2024 Respiratory rate 18.00 /min [facility] Nov 05 11:5 8:55 EST 2024 Systolic Blood Pressure 139.00 mm[Hg] [facility] Nov 05 09:41:05 2024 Diastolic Blood Pressure 60.00 mm[Hg] [facility] Nov 05 09:41:05 2024 Systolic Blood Pressure 149.00 mm[Hg] [facility] Nov 05 01:11:57 EST 2024 Diastolic Blood Pressure 66.00 mm[Hg] [facility] Nov 05 01:11:57 EST 2024 Pulse Oximetry 95.00 % SatNov 05 01:11 :57 EST 2024 Heart Rate 78.00 /min SatNov 05 01:11 :57 EST 2024 Body temperature 98.20 [degF] [facility] Nov 05 01:1 1:57 EST 2024 Respiratory rate 18.00 /min [facility] Nov 05 01:1 1:57 EST 2024 Systolic Blood Pressure 149.00 mm[Hg] SatNov 04 22:14:30 EST 2024 Diastolic Blood Pressure 66.00 mm[Hg] SatNov 04 22:14:30 EST 2024 Body weight 136.20 [lb_av] SatNov 04 10:49 :35 EST 2024 Systolic Blood Pressure 147.00 mm[Hg] SatNov 04 09:15:48 EST 2024 Diastolic Blood Pressure 69.00 mm[Hg] SatNov 04 09:15:48 EST 2024 Systolic Blood Pressure 147.00 mm[Hg] SatNov 04 08:48:50 EST 2024 Diastolic Blood Pressure 69.00 mm[Hg] SatNov 04 08:48:50 EST 2024 Pulse Oximetry 99.00 % SatNov 04 08:48 :50 EST 2024 Heart Rate 75.00 /min SatNov 04 08:48 :50 EST 2024 Body temperature 98.00 [degF] SatNov 04 08:4 8:50 EST 2024 Respiratory rate 18.00 /min SatNov 04 08:4 8:50 EST 2024 Systolic Blood Pressure 157.00 mm[Hg] SatNov 03 23:59:00 EST 2024 Diastolic Blood Pressure 79.00 mm[Hg] SatNov 03 23:59:00 EST 2024 Pulse Oximetry 98.00 % SatNov 03 23:59 :00 EST 2024 Heart Rate 76.00 /min SatNov 03 23:59 :00 2024 Body temperature 97.80 [degF] SatNov 03 23:5 9:00 EST 2024 Respiratory rate 20.00 /min SatNov 03 23:5 9:00 EST 2024 Systolic Blood Pressure 157.00 mm[Hg] SatNov 03 20:29:16 EST 2024 Diastolic Blood Pressure 79.00 mm[Hg] SatNov 03 20:29:16 EST 2024 Body weight 140.00 [lb_av] SatNov 03 16:27 :55 EST 2024 Systolic Blood Pressure 148.00 mm[Hg] SatNov 03 09:34:31 EST 2024 Diastolic Blood Pressure 58.00 mm[Hg] SatNov 03 09:34:31 EST 2024 Systolic Blood Pressure 148.00 mm[Hg] SatNov 03 09:03:38 EST 2024 Diastolic Blood Pressure 58.00 mm[Hg] SatNov 03 09:03:38 EST 2024 Pulse Oximetry 94.00 % SatNov 03 09:03 :38 EST 2024 Heart Rate 65.00 /min SatNov 03 09:03 :38 EST 2024 Body temperature 96.90 [degF] SatNov 03 09:0 3:38 EST 2024 Respiratory rate 18.00 /min SatNov 03 09:0 3:38 EST 5 Systolic Blood Pressure 175.00 mm[Hg] SatNov 02 23:57:27 EST 2024 Diastolic Blood Pressure 78.00 mm[Hg] SatNov 02 23:57:27 EST 2024 Pulse Oximetry 98.00 % SatNov 02 23:57 :27 EST 2024 Heart Rate 85.00 /min SatNov 02 23:57 :27 EST 2024 Body temperature 98.20 [degF] SatNov 02 23:5 7:27 EST 2024 Respiratory rate 18.00 /min SatNov 02 23:5 7:27 EST 2024 Systolic Blood Pressure 175.00 mm[Hg] SatNov 02 20:27:08 EST 2024 Diastolic Blood Pressure 78.00 mm[Hg] SatNov 02 20:27:08 EST 2024 Body weight 138.40 [lb_av] SatNov 02 12:47 :29 EST 2024 Systolic Blood Pressure 144.00 mm[Hg] SatNov 02 09:26:05 EST 2024 Diastolic Blood Pressure 62.00 mm[Hg] SatNov 02 09:26:05 EST 2024 Systolic Blood Pressure 144.00 mm[Hg] SatNov 02 09:26:05 EST 2024 Diastolic Blood Pressure 62.00 mm[Hg] SatNov 02 09:26:05 EST 2024 Pulse Oximetry 94.00 % SatNov 02 09:26 :05 EST 2024 Heart Rate 72.00 /min SatNov 02 09:26 :05 EST 2024 Body temperature 98.00 [degF] SatNov 02 09:2 6:05 EST 2024 Respiratory rate 19.00 /min SatNov 02 09:2 6:05 EST 2024 Systolic Blood Pressure 152.00 mm[Hg] SatNov 02 00:24:27 EST 2024 Diastolic Blood Pressure 69.00 mm[Hg] SatNov 02 00:24:27 EST 2024 Pulse Oximetry 95.00 % SatNov 02 00:24 :27 EST 2024 Heart Rate 80.00 /min SatNov 02 00:24 :27 EST 2024 Body temperature 98.20 [degF] SatNov 02 00:2 4:27 EST 2024 Respiratory rate 16.00 /min SatNov 02 00:2 4:27 EST 2024 Systolic Blood Pressure 152.00 mm[Hg] [facility] Nov 01 22:24:53 EST 2024 Diastolic Blood Pressure 69.00 mm[Hg] [facility] Nov 01 22:24:53 EST 2024 Systolic Blood Pressure 165.00 mm[Hg] [facility] Nov 01 14:35:42 EST 2024 Diastolic Blood Pressure 63.00 mm[Hg] [facility] Nov 01 14:35:42 EST 2024 Pulse Oximetry 95.00 % [facility] Nov 01 14:35 :42 EST 2024 Body weight 139.40 [lb_av] [facility] Nov 01 14:35 :42 EST 2024 Heart Rate 78.00 /min [facility] Nov 01 14:35 :42 EST 2024 Body temperature 98.30 [degF] [facility] Nov 01 14:3 5:42 EST 2024 Respiratory rate 20.00 /min [facility] Nov 01 14:3 5:42 EST 2024 Systolic Blood Pressure 165.00 mm[Hg] [facility] Nov 01 09:19:07 EST 2024 Diastolic Blood Pressure 63.00 mm[Hg] [facility] Nov 01 09:19:07 EST 2024 Systolic Blood Pressure 104.00 mm[Hg] [facility] Nov 01 00:54:20 EST 2024 Diastolic Blood Pressure 58.00 mm[Hg] [facility] Nov 01 00:54:20 EST 2024 Pulse Oximetry 96.00 % [facility] Nov 01 00:54 :20 2024 Heart Rate 78.00 /min [facility] Nov 01 00:54 :20 2024 Body temperature 97.80 [degF] [facility] Nov 01 00:5 4:20 EST 2024 Respiratory rate 18.00 /min [facility] Nov 01 00:5 4:20 EST 2024 Systolic Blood Pressure 100.00 mm[Hg] [facility] Oct 31 20:31:48 EST 2024 Diastolic Blood Pressure 58.00 mm[Hg] SatOct 31 20:31:48 EST 2024 Body weight 139.00 [lb_av] [facility] Oct 31 13:10 :48 EST 2024 Systolic Blood Pressure 103.00 mm[Hg] SatOct 31 10:39:19 EST 2024 Diastolic Blood Pressure 56.00 mm[Hg] SatOct 31 10:39:19 EST 2024 Pulse Oximetry 93.00 % [facility] Oct 31 10:39 :19 EST 2024 Heart Rate 84.00 /min [facility] Oct 31 10:39 :19 EST 2024 Body temperature 97.80 [degF] SatOct 31 10:3 9:19 EST 2024 Respiratory rate 16.00 /min SatOct 31 10:3 9:19 EST 2024 Systolic Blood Pressure 103.00 mm[Hg] SatOct 31 09:22:37 EST 2024 Diastolic Blood Pressure 56.00 mm[Hg] SatOct 31 09:22:37 EST 2024 Systolic Blood Pressure 148.00 mm[Hg] [facility] Oct 31 00:51:38 EST 2024 Diastolic Blood Pressure 52.00 mm[Hg] [facility] Oct 31 00:51:38 EST 2024 Pulse Oximetry 96.00 % [facility] Oct 31 00:51 :38 EST 2024 Heart Rate 76.00 /min [facility] Oct 31 00:51 :38 EST 2024 Body temperature 98.00 [degF] [facility] Oct 31 00:5 1:38 EST 2024 Respiratory rate 18.00 /min [facility] Oct 31 00:5 1:38 EST 2024 Systolic Blood Pressure 142.00 mm[Hg] SatOct 30 22:43:31 2024 Diastolic Blood Pressure 52.00 mm[Hg] SatOct 30 22:43:31 EST 2024 Body weight 137.80 [lb_av] SatOct 30 18:37 :16 2024 Systolic Blood Pressure 150.00 mm[Hg] SatOct 30 10:42:39 2024 Diastolic Blood Pressure 70.00 mm[Hg] SatOct 30 10:42:39 2024 Pulse Oximetry 95.00 % SatOct 30 10:42 :39 2024 Heart Rate 74.00 /min SatOct 30 10:42 :39 2024 Body temperature 98.00 [degF] SatOct 30 10:4 2:39 2024 Respiratory rate 18.00 /min SatOct 30 10:4 2:39 2024 Systolic Blood Pressure 150.00 mm[Hg] SatOct 30 09:29:36 EST 2024 Diastolic Blood Pressure 70.00 mm[Hg] SatOct 30 09:29:36 EST 2024 Systolic Blood Pressure 132.00 mm[Hg] SatOct 29 23:30:17 EST 2024 Diastolic Blood Pressure 46.00 mm[Hg] SatOct 29 23:30:17 EST 2024 Pulse Oximetry 91.00 % SatOct 29 23:30 :17 EST 2024 Heart Rate 84.00 /min SatOct 29 23:30 :17 EST 2024 Body temperature 98.30 [degF] [facility] Oct 29 23:3 0:17 EST 2024 Respiratory rate 18.00 /min [facility] Oct 29 23:3 0:17 EST 2024 Systolic Blood Pressure 138.00 mm[Hg] [facility] Oct 29 20:42:32 EST 2024 Diastolic Blood Pressure 66.00 mm[Hg] [facility] Oct 29 20:42:32 EST 2024 Systolic Blood Pressure 161.00 mm[Hg] [facility] Oct 29 09:49:49 EST 2024 Diastolic Blood Pressure 80.00 mm[Hg] [facility] Oct 29 09:49:49 EST 2024 Pulse Oximetry 96.00 % [facility] Oct 29 09:49 :49 EST 2024 Body weight 140.00 [lb_av] [facility] Oct 29 09:49 :49 EST 2024 Heart Rate 83.00 /min [facility] Oct 29 09:49 :49 EST 2024 Body temperature 98.20 [degF] [facility] Oct 29 09:4 9:49 EST 2024 Respiratory rate 18.00 /min [facility] Oct 29 09:4 9:49 EST 2024 Systolic Blood Pressure 161.00 mm[Hg] [facility] Oct 29 09:16:18 EST 2024 Diastolic Blood Pressure 80.00 mm[Hg] [facility] Oct 29 09:16:18 EST 2024 Systolic Blood Pressure 156.00 mm[Hg] [facility] Oct 29 00:21:09 EST 2024 Diastolic Blood Pressure 57.00 mm[Hg] [facility] Oct 29 00:21:09 EST 2024 Pulse Oximetry 98.00 % [facility] Oct 29 00:21 :09 EST 2024 Heart Rate 70.00 /min [facility] Oct 29 00:21 :09 EST 2024 Body temperature 98.20 [degF] [facility] Oct 29 00:2 1:09 EST 2024 Respiratory rate 18.00 /min [facility] Oct 29 00:2 1:09 EST 2024 Systolic Blood Pressure 156.00 mm[Hg] SatOct 28 22:26:15 EST 2024 Diastolic Blood Pressure 57.00 mm[Hg] SatOct 28 22:26:15 EST 2024 Body Height 62.00 [in_i] SatOct 28 16:40 :40 EST 2024 Body weight 139.90 [lb_av] SatOct 28 12:37 :08 EST 2024 Systolic Blood Pressure 170.00 mm[Hg] SatOct 28 09:36:45 EST 2025 Diastolic Blood Pressure 75.00 mm[Hg] SatOct 28 09:36:45 EST 5 Systolic Blood Pressure 170.00 mm[Hg] SatOct 28 09:36:45 EST 2024 Diastolic Blood Pressure 75.00 mm[Hg] SatOct 28 09:36:45 EST 5 Pulse Oximetry 97.00 % SatOct 28 09:36 :45 EST 5 Heart Rate 77.00 /min SatOct 28 09:36 :45 EST 5 Body temperature 98.00 [degF] SatOct 28 09:3 6:45 EST 5 Respiratory rate 18.00 /min SatOct 28 09:3 6:45 EST 5 Systolic Blood Pressure 143.00 mm[Hg] SatOct 28 01:27:04 EST 2024 Diastolic Blood Pressure 59.00 mm[Hg] SatOct 28 01:27:04 EST 2024 Pulse Oximetry 96.00 % SatOct 28 01:27 :04 EST 2024 Body temperature 97.30 [degF] SatOct 28 01:2 7:04 EST 5 Respiratory rate 18.00 /min SatOct 28 01:2 7:04 EST 2024 Heart Rate 96.00 /min SatOct 28 01:27 :04 EST 2024 Systolic Blood Pressure 143.00 mm[Hg] SatOct 27 22:12:33 EST 2024 Diastolic Blood Pressure 59.00 mm[Hg] SatOct 27 22:12:33 EST 2024 Body weight 136.70 [lb_av] SatOct 27 13:06 :57 EST 2024 Systolic Blood Pressure 130.00 mm[Hg] SatOct 27 10:14:51 EST 5 Diastolic Blood Pressure 59.00 mm[Hg] SatOct 27 10:14:51 EST 2024 Pulse Oximetry 94.00 % SatOct 27 10:14 :51 EST 5 Heart Rate 82.00 /min SatOct 27 10:14 :51 EST 2024 Body temperature 97.30 [degF] SatOct 27 10:1 4:51 EST 5 Respiratory rate 18.00 /min SatOct 27 10:1 4:51 EST 5 Systolic Blood Pressure 150.00 mm[Hg] SatOct 27 09:22:25 EST 5 Diastolic Blood Pressure 59.00 mm[Hg] SatOct 27 09:22:25 EST 5 Systolic Blood Pressure 143.00 mm[Hg] SatOct 26 22:41:27 EST 2024 Diastolic Blood Pressure 57.00 mm[Hg] SatOct 26 22:41:27 EST 2024 Pulse Oximetry 97.00 % SatOct 26 22:41 :27 EST 2024 Heart Rate 78.00 /min SatOct 26 22:41 :27 EST 2024 Body temperature 98.40 [degF] SatOct 26 22:4 1:27 EST 2024 Respiratory rate 18.00 /min SatOct 26 22:4 1:27 EST 2024 Systolic Blood Pressure 141.00 mm[Hg] SatOct 26 20:28:03 EST 2024 Diastolic Blood Pressure 62.00 mm[Hg] SatOct 26 20:28:03 EST 2024 Body weight 144.20 [lb_av] SatOct 26 14:17 :42 EST 2024 Systolic Blood Pressure 132.00 mm[Hg] SatOct 26 09:17:56 EST 2024 Diastolic Blood Pressure 69.00 mm[Hg] SatOct 26 09:17:56 EST 2024 Systolic Blood Pressure 132.00 mm[Hg] SatOct 26 09:17:56 EST 2024 Diastolic Blood Pressure 69.00 mm[Hg] SatOct 26 09:17:56 EST 2024 Pulse Oximetry 95.00 % SatOct 26 09:17 :56 EST 2024 Heart Rate 72.00 /min SatOct 26 09:17 :56 EST 2024 Body temperature 98.00 [degF] SatOct 26 09:1 7:56 EST 2024 Respiratory rate 16.00 /min SatOct 26 09:1 7:56 EST 2024 Systolic Blood Pressure 160.00 mm[Hg] [facility] Oct 25 23:52:11 EST 2024 Diastolic Blood Pressure 61.00 mm[Hg] [facility] Oct 25 23:52:11 EST 2024 Pulse Oximetry 96.00 % [facility] Oct 25 23:52 :11 EST 2024 Heart Rate 82.00 /min [facility] Oct 25 23:52 :11 EST 2024 Body temperature 98.50 [degF] [facility] Oct 25 23:5 2:11 EST 2024 Respiratory rate 18.00 /min [facility] Oct 25 23:5 2:11 EST 2024 Systolic Blood Pressure 137.00 mm[Hg] [facility] Oct 25 20:12:04 EST 2024 Diastolic Blood Pressure 61.00 mm[Hg] [facility] Oct 25 20:12:04 EST 2024 Body weight 141.60 [lb_av] [facility] Oct 25 17:17 :45 EST 2024 Systolic Blood Pressure 146.00 mm[Hg] [facility] Oct 25 11:36:03 EST 2024 Diastolic Blood Pressure 60.00 mm[Hg] [facility] Oct 25 11:36:03 EST 2024 Pulse Oximetry 95.00 % [facility] Oct 25 11:36 :03 EST 2024 Heart Rate 72.00 /min [facility] Oct 25 11:36 :03 EST 2024 Body temperature 97.80 [degF] [facility] Oct 25 11:3 6:03 EST 2024 Respiratory rate 18.00 /min [facility] Oct 25 11:3 6:03 EST 2024 Systolic Blood Pressure 146.00 mm[Hg] [facility] Oct 25 09:17:22 EST 2024 Diastolic Blood Pressure 70.00 mm[Hg] [facility] Oct 25 09:17:22 EST 2024 Systolic Blood Pressure 146.00 mm[Hg] [facility] [facility] Oct 24 22:46:01 EST 2024 Diastolic Blood Pressure 65.00 mm[Hg] [facility] Oct 24 22:46:01 EST 2024 Pulse Oximetry 96.00 % [facility] Oct 24 22:46 :01 EST 2024 Heart Rate 95.00 /min [facility] Oct 24 22:46 :01 EST 2024 Body temperature 97.20 [degF] [facility] Oct 24 22:4 6:01 EST 2024 Respiratory rate 18.00 /min [facility] Oct 24 22:4 6:01 EST 2024 Systolic Blood Pressure 146.00 mm[Hg] [facility] Oct 24 20:20:55 EST 2024 Diastolic Blood Pressure 65.00 mm[Hg] [facility] Oct 24 20:20:55 EST 2024 Body weight 141.60 [lb_av] [facility] Oct 24 12:30 :40 EST 2024 Systolic Blood Pressure 151.00 mm[Hg] [facility] Oct 24 09:12:43 EST 2024 Diastolic Blood Pressure 64.00 mm[Hg] [facility] Oct 24 09:12:43 EST 2024 Systolic Blood Pressure 151.00 mm[Hg] [facility] Oct 24 09:12:43 EST 2024 Diastolic Blood Pressure 64.00 mm[Hg] [facility] Oct 24 09:12:43 EST 2024 Pulse Oximetry 93.00 % [facility] Oct 24 09:12 :43 EST 2024 Heart Rate 79.00 /min [facility] Oct 24 09:12 :43 EST 2024 Body temperature 98.00 [degF] [facility] Oct 24 09:1 2:43 EST 2024 Respiratory rate 18.00 /min [facility] Oct 24 09:1 2:43 EST 2024 Systolic Blood Pressure 142.00 mm[Hg] SatOct 24 00:18:54 EST 2024 Diastolic Blood Pressure 69.00 mm[Hg] SatOct 24 00:18:54 EST 2024 Pulse Oximetry 97.00 % SatOct 24 00:18 :54 EST 2024 Heart Rate 78.00 /min SatOct 24 00:18 :54 EST 2024 Body temperature 97.00 [degF] [facility] Oct 24 00:1 8:54 EST 2024 Respiratory rate 18.00 /min [facility] Oct 24 00:1 8:54 EST 2024 Systolic Blood Pressure 142.00 mm[Hg] SatOct 23 22:25:18 EST 2024 Diastolic Blood Pressure 69.00 mm[Hg] SatOct 23 22:25:18 EST 2024 Systolic Blood Pressure 142.00 mm[Hg] SatOct 23 16:53:00 EST 2024 Diastolic Blood Pressure 69.00 mm[Hg] SatOct 23 16:53:00 EST 2024 Pulse Oximetry 97.00 % SatOct 23 16:53 :00 EST 2024 Heart Rate 78.00 /min SatOct 23 16:53 :00 EST 2024 Body weight 143.00 [lb_av] SatOct 23 16:53 :00 EST 2024 Body temperature 97.00 [degF] SatOct 23 16:5 3:00 EST 2024 Respiratory rate 18.00 /min SatOct 23 16:5 3:00 EST 2024 Reason for Referral
--- OUTSIDE RECORDS SUMMARY | 2025-04-25 09:14 | XMS_ITS | Referral Summary ---
Author Organization [facility] [address] Address [address] [place] [address] Care Team Providers Care Transmission Superintendent Name Role Phone Lewis Stephens MD Primary Care Provider [phone] Encounters Date Type Department Care Team Description 03/04/2025 11:15 AM CDT Office Visit [facility] [address] [place] [address] Stefania Cruz MD Coronary artery disease involving [place] coronary artery of [place] heart without angina pectoris (Primary Dx); Benign hypertension; H/O acute myocardial infarction; Mixed hyperlipidemia 02/19/2025 Results Follow-Up [facility] Primary Care at [address] [place] [address] Lewis Stephens MD CBC with auto differential, Differential, auto 02/18/2025 1:45 PM CDT Lab [facility] [address] [place] [address] Thrombocytosis 02/18/2025 1:15 PM CDT Office Visit [facility] [address] [place] [address] Lewis Stephens MD Coronary artery disease involving [place] coronary artery of [place] heart without angina pectoris (Primary Dx); Thrombocytosis; Bilateral primary osteoarthritis of hip; Gastro-esophageal reflux disease without esophagitis from Last 3 Months Allergies Active Allergy Reactions Criticality Noted Date Comments Atorvastatin Muscle pain Medium 11/14/2024 Corticosteroids (Glucocorticoids) Stomach upset Low 11/14/2024 Isosorbide Other (See comments) Low 11/14/2024 Sulfa (Sulfonamide Antibiotics) Unknown 06/2018 Medications aspirin 81 mg chewable tablet chew 1 tablet by oral route every day 0 0 3 Active acetaminophen (TYLENOL EXTRA STRENGTH) 500 mg tablet take 2 tablet by oral route every 6 hours as needed 0 0 3 Active ergocalciferol (VITAMIN D) 50,000 unit capsule TAKE 1 CAPSULE BY MOUTH ONCE MONTHLY 1 Active rosuvastatin (CRESTOR) 5 mg tablet Take 1 tablet (5 mg total) by mouth nightly 90 tablet 3 4 07/01/20 25 Active sodium chloride (Deep Sea Nasal) 0.65 % nasal spray Administer 1 spray into each nostril nightly 4 Active dilTIAZem CD/XR/XT (dilTIAZem CD) 120 mg 24 hr capsule TAKE 1 CAPSULE BY MOUTH EVERY DAY 100 capsule 1 5 Active omeprazole (PriLOSEC) 20 mg capsule TAKE 1 CAPSULE BY MOUTH EVERY DAY BEFORE A MEAL 90 capsule 3 5 Active valACYclovir (VALTREX) 500 mg tablet Take 1 tablet (500 mg total) by mouth as needed (cold sore) 30 tablet 5 Active Active Problems Problem Noted Date Diagnosed Date RLS (restless legs syndrome) 12/29/2024 Assessment & Plan (12/29/2024 4:26 PM CDT): Patient reports increased symptoms, muscle spasms, especially at night Will check ferritin and CMP, recommend use of magnesium supplements Will check potassium levels today to see if patient can return to regular diet Closed fracture dislocation of left hip joint with routine healing 11/19/2024 Assessment & Plan (11/19/2024 1:26 PM COMPUTER AIDE): Patient reports healing well; continues to have some swelling, has good range of motion, can get up and walk using walker; perform some exercises Continues on PT OT and nursing visits Vitamin D deficiency, unspecified 11/09/2024 Bilateral primary osteoarthritis of hip 11/09/19 Assessment & Plan (03/04/2025 6:00 PM CDT): Continues to have chronic pain in multiple sites including ribs, hips and knees Encourage regular physical activity as tolerated; use of walker for stability Age-related osteoporosis wit hout current pathological fracture 10/12/2024 Assessment & Plan (12/29/2024 4:25 PM CDT): Stable, well controlled, encouraged calcium and vitamin-D; avoid falls use appropriate supportive devices Constipation, unspecified 10/12/2024 Gastro-esophageal reflux disease without esophag itis 10/12/2024 Assessment & Plan (03/04/2025 6:00 PM CDT): Stable, generally well controlled; occasional symptoms Continue omeprazole 20 mg daily Assessment & Plan (12/29/2024 4:25 PM CDT): Stable, well controlled; no major symptoms Continue omeprazole 20 mg daily Presence of other bone and tendon implants 10/09 Carpal tunnel syndrome of left wrist 07/22/2024 Carpal tunnel syndrome of right wrist 07/22/2024 Myalgia 07/09/2023 Mixed hyperlipidemia 12/22/2021 Assessment & Plan (12/29/2024 4:26 PM CDT): Stable, well controlled; continue rosuvastatin 5 mg daily Assessment & Plan (11/19/2024 1:25 PM COMPUTER AIDE): Stable, well controlled; will recheck Continue rosuvastatin 5 mg daily Assessment & Plan (05/29/2024 4:47 PM CDT): Last LDL near range for CAD Encourage low-fat high-fiber diet Continue rosuvastatin 5 mg daily Localized edema 12/22/2020 Assessment & Plan (12/29/2024 4:26 PM CDT): Generally well controlled, recommend use of mechanical devices such as supportive hose or elevation Presence of right artificial knee joint 10/21/19 Presence of external hearing-aid 10/21/2019 H/O acute myocardial infarction 08/07/2017 PUD (peptic ulcer disease) 08/07/2017 Benign hypertension 07/23/2016 Overview (01/24/2017): HTN (hypertension), benign Assessment & Plan (12/29/2024 4:25 PM CDT): Stable, well controlled, blood pressure at goal; no chest pain or pressure Continue diltiazem 120 mg daily Assessment & Plan (11/19/2024 1:25 PM COMPUTER AIDE): Blood pressure at goal, however patient has been having low diastolic levels; some symptoms including possible excessive sleepiness, no clear evidence of orthostatics the patient reports getting tired easily Will discontinue valsartan 40 mg daily; continue diltiazem 120 mg daily; will continue to monitor blood pressure Assessment & Plan (05/29/2024 4:47 PM CDT): [...] standing up from sitting Coronary artery disease invo lving [place] coronary artery of [place] heart without angina pectoris 11/09/2015 Overview (01/24/2017): Coronary artery disease involving [place] coronary artery of [place] heart without angina pectoris Assessment & Plan (03/04/2025 6:00 PM CDT): Major chest pain or pressure; no changes to exercise tolerance Continue ASA 81 mg daily, diltiazem 120 mg daily, rosuvastatin 5 mg nightly Assessment & Plan (12/29/2024 4:25 PM CDT): Stable, well controlled; no chest pain or pressure; no changes to exercise tolerance Continue ASA 81 mg daily, Crestor 5 mg nightly Assessment & Plan (05/29/2024 4:47 PM CDT): Stable, well controlled; no chest pain or pressure; continue ASA 81 mg daily, rosuvastatin 5 mg daily Vertigo 11/09/2015 Overview (01/24/2017): Vertigo Sensorineural hearing loss (SNHL) of both ears 0 06/29/2015 Impairment of balance 10/26/2014 Overview (01/24/2017): Imbalance Resolved Problems Problem Noted Date Diagnosed Date Resolved Date Dyslipidemia 11/09/2015 12/22/2021 Overview (01/24/2017): Dyslipidemia Immunizations Immunization Administration Dates Next Due Influenza, Quadrivalent, Hig h Dose, Preservative Free, Intrr 06/05/2020 Influenza, Trivalent, High D ose, Split, Preservative Free, Intramuscular 06/21/2024,08/18/2019,07/06/2018,07/05,08/06/2016 Influenza, Trivalent, IM (MDV) 09/09/2014 Influenza, Trivalent, Preser vative Free, Intramuscular 09/25/2015 Influenza, Unspecified 11/19/2024(Deferred: Ivy ent Refused) PPD TEST 11/02/2024,,10/26/2024,10/24 Pneumococcal Conjugate Pcv20 11/19/2024 Social History Tobacco Use Types Packs/Day Years [...] points, staff should administer the PHQ-9) 0 12/17/2024 Comments Unknown Sex and Gender Information Value Date Recorded Sex Assigned at Not on file Legal Sex Female 2:38 AM COMPUTER AIDE Gender Identity Female 02/04/2024 1:26 PM CDT Sexual Orientation Not on file Last Filed Vital Signs Vital Sign Reading Time Taken Comments Blood Pressure 128/62 03/04/2025 11:05 AM CDT Pulse 57 03/04/2025 11:05 AM CDT Temperature 36.6 C (97.9 F) 02/18/2025 1:06 PM CDT Respiratory Rate 18 02/18/2025 1:06 PM CDT Oxygen Saturation 90% 03/04/2025 11:05 AM CDT Inhaled Oxygen Concentration - - Weight 56.7 kg (125 lb) 03/04/2025 11:05 AM CDT Height 157.5 cm (5' 2) 03/04/2025 11:05 AM CDT Body Mass Index 22.86 03/04/2025 11:05 AM CDT Plan of Treatment Not on file Procedures Procedure Name Priority Date/Time Associated Diagnosis Comments DIFFERENTIAL AUTO Routine 02/18/2025 1:4 4 PM CDT Thrombocytosis CBC WITH AUTO DIFFERENTIAL Routine 02/18/2025 1:44 PM CDT Thrombocytosis from Last 3 Months Results * (ABNORMAL) Differential, auto (02/18/2025 1:44 PM CDT) Neutrophil abs 3.71 1.50 - 6.50 K/cumm Comment:Testing performed by : [facility], [address] [place] [address]., [id number] Imm gran abs 0.03 0.00 - 0.10 K/cumm [facility] ([facility]) Comment:Testing performed by : [facility], [address] [place] [address]., [id number] Lymphocyte abs 1.68 0.80 - 3.30 K/cumm [facility] ([facility]) Comment:Testing performed by : [facility], [address] [place] [address]., [id number] Monocyte abs 0.82(H) 0.20 - 0.80 K/cumm [facility] ([facility]) Comment:Testing performed by : [facility], [address] [place] [address]., [id number] Eosinophil abs 0.20 0.00 - 0.50 K/cumm [facility] ([facility]) Comment:Testing performed by : [facility], [address] [place] [address], [id number] Basophil abs 0.08 0.00 - 0.10 K/cumm [facility] ([facility]) Comment:Testing performed by : [facility], [address] [place] [address]., [id number] Neutrophil pct 56.8 % [facility] ([facility]) Comment: Interpretive Data Percent cell count reference ranges are not reported, since discordance with absolute values may lead to misinterpretation of CBC data. Current Interpretive Data was last revised on 2018. Testing performed by: [facility], [address] [place] [address]., [id number] Imm gran pct 0.5 % [facility] ([facility]) Comment: Interpretive Data Percent cell count reference ranges are not reported, since discordance with absolute values may lead to misinterpretation of CBC data. Current Interpretive Data was last revised on 2018. Testing performed by: [facility], [address] [place] [address]., [id number] Lymphocyte pct 25.8 % [facility] ([facility]) Comment: Interpretive Data Percent cell count reference ranges are not reported, since discordance with absolute values may lead to misinterpretation of CBC data. Current Interpretive Data was last revised on 2018. Testing performed by: [address], [id number] Monocyte pct 12.6 % [facility] ([facility]) Comment: Interpretive Data Percent cell count reference ranges are not reported, since discordance with absolute values may lead to misinterpretation of CBC data. Current Interpretive Data was last revised on 2018. Testing performed by: [facility], [address] [place] [address], [id number] Eosinophil pct 3.1 % MICHAEL [facility] (ALEX) Comment: Interpretive Data Percent cell count reference ranges are not reported, since discordance with absolute values may lead to misinterpretation of CBC data. Current Interpretive Data was last revised on 2018. Testing performed by: [address], [address] Basophil pct 1.2 % KRISH MOR[facility] (ALEX) Comment: Interpretive Data Percent cell count reference ranges are not reported, since discordance with absolute values may lead to misinterpretation of CBC data. Current Interpretive Data was last revised on 2018. Testing performed by: [address], [id number] Blood 02/18/2025 1:44 PM CDT 02/18/2025 5:11 PM CDT us Lewis Stephens MD LAB BLOOD ORDERABLES [place] Result KRISH [facility]OR[facility] (ALEX) 1 [facility] Department [place] [address] * (ABNORMAL) CBC with auto differential (02/18/2025 1:44 PM CDT) WBC 6.52 3.80 - 9.90 K/cumm Comment:Testing performed by : [address] [address] Hgb 14.3 11.9 - 15.5 g/dL KRISH MOR[facility] (ALEX) Comment:Testing performed by : [address], [address] Hct 44.6 35.6 - 45.5 % KRISH MORENO (ALEX) Comment:Testing performed by : [address], [address] Plt 310 150 - 400 K/cumm [facility] ([facility]) Comment:Testing performed by : [facility], [address] [place] [address], [id number] MPV 9.9 9.1 - 12.3 fL [facility] ([facility]) Comment:Testing performed by : [facility], [address] [place] [address], [id number] RBC 4.64 3.90 - 5.20 M/cumm [facility] ([facility]) Comment:Testing performed by : [facility], [address] [place] [address], [id number] MCV 96.1 81.3 - 96.4 fL [facility] ([facility]) Comment:Testing performed by : [address], [address] MCH 30.8 27.1 - 33.3 pg [facility] ([facility]) Comment:Testing performed by : [address], [address] MCHC 32.1(L) 32.3 - 35.7 g/dL [facility] ([facility]) Comment:Testing performed by : [address], [address] RDW CV 13.9 11.1 - 14.9 % [facility] ([facility]) Comment:Testing performed by : [address], [address] RDW SD 49.5(H) 35.7 - 48.1 fL [facility] ([facility]) Comment:Testing performed by : [address], [address] NRBC abs 0.00 0.00 - 0.01 K/cumm [facility] ([facility]) Comment:Testing performed by : [address], [id number] Blood 02/18/2025 1:44 PM CDT 02/18/2025 5:11 PM CDT us Lewis Stephens MD LAB BLOOD ORDERABLES [place] Result [facility] ([facility]) 1 [facility] Department [place] [address] from Last 3 Months Insurance MEDICARE [place] [address] [id number] MEDICARE [facility] * Guarantor: Ronald Wakefield Account Type Relation to Patient Date of Phone Billing Address Personal/Family Self [address] [place] [address] MEDICARE [employer] Advance Directives For more information, please contact: [phone] * Full Code (Latest Code Status on File) Date Activated Date Inactivated Comments 04/28/2018 10:35 AM 04/28/2018 2:01 PM Care Teams Transmission Superintendent Relationship Specialty Start Date End Date Lewis Stephens MD [address] [place] [address] PCP - General Family Medicine 05/14/24
--- OUTSIDE RECORDS SUMMARY | 2025-04-25 09:15 | XMS_ITS | Clinical Summary ---
Author Organization [facility] [address] Address [address] [place] [address] Care Team Providers Care Title Insurance Examiner Name Role Phone Lewis Stephens MD Primary Care Provider [phone] Allergies Active Allergy Reactions Criticality Noted Date [...] 11/19/2024 Assessment & Plan (11/19/2024 1:26 PM KARATE BLACK BELT): Patient reports healing well; continues to have [...] daily Assessment & Plan (11/19/2024 1:25 PM KARATE BLACK BELT): Stable, well controlled; will recheck Continue rosuvastatin 5 mg daily Assessment & Plan (05/29/2024 4:47 PM CDT): Last LDL near range for CAD Encourage low-fat high-fiber diet Continue rosuvastatin 5 mg daily Localized edema 12/22/2020 Assessment & Plan (12/29/2024 4:26 PM CDT): Generally well controlled, recommend use of mechanical devices such as supportive hose or elevation Presence of right artificial knee joint 10/21/19 20 Presence of external hearing-aid 10/21/2019 H/O acute myocardial infarction 08/07/2017 PUD (peptic ulcer disease) 08/07/2017 Benign hypertension 07/23/2016 Overview (01/24/2017): HTN (hypertension), benign Assessment & Plan (12/29/2024 4:25 PM CDT): Stable, well controlled, blood pressure at goal; no chest pain or pressure Continue diltiazem 120 mg daily Assessment & Plan (11/19/2024 1:25 PM KARATE BLACK BELT): Blood pressure at goal, however patient has [...] from sitting Coronary artery disease invo lving pamunkey coronary artery of pamunkey heart without angina pectoris 11/09/2015 Overview (01/24/2017): Coronary artery disease involving pamunkey coronary artery of pamunkey heart without angina pectoris Assessment & Plan [...] Description 03/04/2025 11:15 AM CDT Office Visit [facility] Cardiology [address] [place] [address] Stefania Cruz MD Coronary artery disease involving pamunkey coronary artery of [place] heart without angina pectoris (Primary Dx); Benign hypertension; H/O acute myocardial infarction; Mixed hyperlipidemia 02/19/2025 Results Follow-Up [facility] Primary Care at [address] [place] [id number] Lewis Stephens MD CBC with auto differential, Differential, auto 02/18/2025 1:45 PM CDT Lab [facility] [address] [place] [address] Thrombocytosis 02/18/2025 1:15 PM CDT Office Visit [facility] [address] [place] [address] Lewis Stephens MD Coronary artery disease involving pamunkey coronary artery of pamunkey heart without angina pectoris (Primary Dx); Thrombocytosis; Bilateral primary osteoarthritis of hip; Gastro-esophageal reflux disease without esophagitis from Last 3 Months Immunizations Immunization Administration Dates Next Due Influenza, Quadrivalent, Hig h Dose, Preservative Free, Intrr 06/05/2020 Influenza, Trivalent, High D ose, Split, Preservative Free, Intramuscular 06/21/2024,08/18/2019,07/06/2018,07/05,08/06/2016 Influenza, Trivalent, IM (MDV) 09/09/2014 Influenza, Trivalent, Preser vative Free, Intramuscular 09/25/2015 Influenza, Unspecified 11/19/2024(Deferred: Ivy ent Refused) PPD TEST 11/02/2024,,10/26/2024,10/24 Pneumococcal Conjugate Pcv20 11/19/2024 Surgical History Surgery Date Site/Laterality Comments PERCUTANEOUS TRANSLUMINAL CORONARY ANGIOPLASTY 10/21/1988 - 10/20/1989 Percutaneous Transluminal Coronary Angioplasty TOTAL KNEE ARTHROPLASTY 10/21/2005 - 10/20/2006 Right Bilateral Total Knee Replacement ANGIOPLASTY KNEE ARTHROSCOPY W/ LATERAL RELEASE 10/21/2012 - 10/20/2013 CATARACT EXTRACTION HYSTERECTOMY 10/21/1969 - 10/20/1970 N/A HIP SURGERY Medical History Medical History Date Comments Cardiovascular disease Coronary Artery Disease Myocardial infarction (HCC) 1988 Myoc ardial infarction Hypertension Hypertension HL (hearing loss) Tinnitus GERD (gastroesophageal reflux disease) Arthritis Osteoporosis Heart disease Mixed conductive and sensorineural hearing loss Heart attack (HCC) 1988 Colitis 10/2024 [facility] Family History Medical History Relation Name Comments [...] on file Legal Sex Female 2:38 AM KARATE BLACK BELT Gender Identity Female 02/04/2024 1:26 PM CDT [...] 03/04/2025 11:05 AM CDT Plan of Treatment Health Maintenance Due Date Last Done Comments Osteoporosis Screening-Bone Density Scan 1935 DTaP/Tdap/Td Vaccine (1 - Tdap) 1947 Hepatitis B Screening 1954 Zoster Vaccine (1 of 2) 1986 Depression Screening 12/17/2025 12/17/2024, 05/14/20 24 Fall Risk Assessment 12/17/2025 12/17/2024, 05/14/20 24 Well Visit 65+ 12/17/2025 12/17/2024 Influenza Vaccine Completed 06/21/2024, , 08/18/2019, Additional history exists Pneumococcal vaccine 65+ Completed 11/19/2024 Procedures Procedure Name Priority Date/Time Associated Diagnosis Comments DIFFERENTIAL AUTO Routine 02/18/2025 1:4 4 PM CDT Thrombocytosis CBC WITH AUTO DIFFERENTIAL Routine 02/18/2025 1:44 PM CDT Thrombocytosis from Last 3 Months Results * (ABNORMAL) Differential, auto (02/18/2025 1:44 PM CDT) Neutrophil abs 3.71 1.50 - 6.50 K/cumm Comment:Testing performed by : [address] [address] Imm gran abs 0.03 0.00 - 0.10 K/cumm [facility] ([facility]) Comment:Testing performed by : [address], [address] Lymphocyte abs 1.68 0.80 - 3.30 K/cumm [facility] ([facility]) Comment:Testing performed by : [address], [address] Monocyte abs 0.82(H) 0.20 - 0.80 K/cumm [facility] ([facility]) Comment:Testing performed by : [facility], [address] [place] [address]., [address] Eosinophil abs 0.20 0.00 - 0.50 K/cumm [facility] ([facility]) Comment:Testing performed by : [facility], [address] [place] [address]., [address] Basophil abs 0.08 0.00 - 0.10 K/cumm [facility] ([facility]) Comment:Testing performed by : [address] [address] Neutrophil pct 56.8 % [facility] ([facility]) Comment: Interpretive Data Percent cell count reference ranges are not reported, since discordance with absolute values may lead to misinterpretation of CBC data. Current Interpretive Data was last revised on 2018. Testing performed by: [address] [address] Imm gran pct 0.5 % [facility] ([facility]) Comment: Interpretive Data Percent cell count reference ranges are not reported, since discordance with absolute values may lead to misinterpretation of CBC data. Current Interpretive Data was last revised on 2018. Testing performed by: [address] [address] Lymphocyte pct 25.8 % [facility] ([facility]) Comment: Interpretive Data Percent cell count reference ranges are not reported, since discordance with absolute values may lead to misinterpretation of CBC data. Current Interpretive Data was last revised on 2018. Testing performed by: [address] [address] Monocyte pct 12.6 % [facility] ([facility]) Comment: Interpretive Data Percent cell count reference ranges are not reported, since discordance with absolute values may lead to misinterpretation of CBC data. Current Interpretive Data was last revised on 2018. Testing performed by: [address] [address] Eosinophil pct 3.1 % [facility] ([facility] Comment: Interpretive Data Percent cell count reference ranges are not reported, since discordance with absolute values may lead to misinterpretation of CBC data. Current Interpretive Data was last revised on 2018. Testing performed by: [facility], [address], [place]., [address] Basophil pct 1.2 % [facility] ([facility]) Comment: Interpretive Data Percent cell count reference ranges are not reported, since discordance with absolute values may lead to misinterpretation of CBC data. Current Interpretive Data was last revised on 2018. Testing performed by: [address], [address] Blood 02/18/2025 1:44 PM CDT 02/18/2025 5:11 PM CDT us Lewis Stephens MD LAB BLOOD ORDERABLES [place] Result [facility] ([facility]) [facility] [place] [address] * (ABNORMAL) CBC with auto differential (02/18/2025 1:44 PM CDT) WBC 6.52 3.80 - 9.90 K/cumm Comment:Testing performed by : [address], [address] Hgb 14.3 11.9 - 15.5 g/dL [facility] ([facility]) Comment:Testing performed by : [address], [address] Hct 44.6 35.6 - 45.5 % [facility] ([facility]) Comment:Testing performed by : [address], [address] Plt 310 150 - 400 K/cumm [facility] ([facility]) Comment:Testing performed by : [address], [address] MPV 9.9 9.1 - 12.3 fL [facility] ([facility]) Comment:Testing performed by : [address], [address] RBC 4.64 3.90 - 5.20 M/cumm [facility] ([facility]) Comment:Testing performed by : [address], [address] MCV 96.1 81.3 - 96.4 fL [facility] ([facility]) Comment:Testing performed by : [facility], [address] [place] [address], [id number] MCH 30.8 27.1 - 33.3 pg [facility] ([facility]) Comment:Testing performed by : [facility], [address] [place] [address], [address] MCHC 32.1(L) 32.3 - 35.7 g/dL [facility] ([facility]) Comment:Testing performed by : [facility], [address] [place] [address], [address] RDW CV 13.9 11.1 - 14.9 % [facility] ([facility]) Comment:Testing performed by : [facility], [address] [place] [address], [address] RDW SD 49.5(H) 35.7 - 48.1 fL [facility] ([facility]) Comment:Testing performed by : [facility], [address] [place] [address], [address] NRBC abs 0.00 0.00 - 0.01 K/cumm [facility] ([facility]) Comment:Testing performed by : [facility], [address] [place] [address], [address] Blood 02/18/2025 1:44 PM CDT 02/18/2025 5:11 PM CDT Lewis Stephens MD LAB BLOOD ORDERABLES [place] Result [facility] ([place]) [facility] Department [place] [address] from Last 3 Months Insurance * Guarantor: Ronald Wakefield Account Type Relation to Patient Date of Phone Billing Address Personal/Family Self 1935 [address] [facility] [address] [place] [address] MEDICARE [employer] [employer] [facility] [employer] MEDICARE [facility] Advance Directives For more information, please contact: [phone] * Full Code (Latest Code Status on File) Date Activated Date Inactivated Comments 04/28/2018 10:35 AM 04/28/2018 2:01 PM Care Teams Title Insurance Examiner Relationship Specialty Start Date End [place] [address] PCP - General Family Medicine 05/14/24
--- NOTE | 2025-04-25 09:24 | ED_ITS ---
HPI - General Adult General Chief complaint: Dizziness Stated complaint: htn/dizzy x 3 days Time Seen by Provider: 04/25/25 09:03 History of Present Illness HPI narrative: 89-year-old female presenting to the emergency department for evaluation for hypertension and dizziness. Patient does have history high blood pressure and does take her medication daily at 7:00 a.m.. Patient states yesterday she did have some dizziness but it resolved. Patient states she woke up this morning and she describes she was having some dizziness and lightheadedness. Patient states she was having a movement sensation where she felt like things were spinning but patient also states she felt like she was going to pass out. Patient denies any associated chest pain or shortness of breath. Patient denies any nausea vomiting or diarrhea. Patient denies any recent illnesses coughs colds or fevers. At time of evaluation patient states she does still have some dizziness. Related Data Home Medications ?Medication ?Instructions ?Recorded ?Confirmed ?Last Taken ?Type diclofenac sodium 1 % topical gel 2 g topical BID PRN back pain 07/01/21 11/27/24 11/07/24 History (Voltaren Arthritis Pain) aspirin 325 mg tablet,delayed 81 mg PO BID 11/08/24 11/27/24 11/07/24 History release omeprazole 20 mg capsule,delayed 20 mg PO DAILY 11/08/24 11/27/24 11/07/24 History release rosuvastatin 5 mg tablet 5 mg PO HS 11/08/24 11/27/24 11/07/24 History valsartan 40 mg tablet 40 mg PO DAILY 11/08/24 11/27/24 11/07/24 History Allergies Allergy/AdvReac Type Severity Reaction Status Date / Time atorvastatin AdvReac Mild Cramping Verified 11/27/24 09:54 of the Muscles oral steriods Allergy Intermediate Hives Uncoded 11/27/24 09:54 Review of Systems 2 Review of Systems: All systems reviewed & are unremarkable except as noted in HPI and below PMFSH Past Medical History Medical History Osteoporosis CAD (coronary artery disease) Intertrochanteric fracture of left femur Atherosclerotic heart disease of [place] coronary artery without angina pectoris Lumbar radiculopathy Mixed conductive and sensorineural hearing loss of both ears With bilateral hearing aids Vertigo Vitamin D deficiency Asthma Essential hypertension Esophageal stricture HSV-2 (herpes simplex virus 2) infection Chronic GERD HLD (hyperlipidemia) Hypertensive heart disease without congestive heart failure Surgical History Surgical History History of coronary artery stent placement History of meniscectomy of left knee (02/2013) Performed by Dr. Charles Corona History of total right knee replacement History of tonsillectomy History of coronary angioplasty (~1987) [facility] Status post cataract extraction of both eyes with insertion of intraocular lens (~2010) History of hysterectomy History of appendectomy Family History Family History Mother Hypertension Cerebrovascular accident Family history of diabetes mellitus in first degree relative Patient's mother is Sibling Asthma Family history of malignant neoplasm Family history of diabetes mellitus in first degree relative Patient's brother is Family history of kidney disease Father Family history of diabetes mellitus in first degree relative Patient's father is Hypertension Family history of coronary artery disease Other Diabetes mellitus Family history of arthritis Social History Social History Social History: Patient lives with her of over 50 years. She ambulates with a cane. She is a former smoker and smoked up to 1 pack cigarettes per day but quit in 1999. She smoked about a pack per day for 40-45 years. She denies any history of alcohol use or illicit substance use. Code status: She states that she does not believe she would want CPR but she does have an advanced directive in place. She will defer decision to her . Surrogate decision maker: Curtis () Smoking packs per day: 1 Smoking cigarettes per day: 20.0 Years smoked: 40 Smoking pack-years: 40.00 Smoking status: Former smoker Second hand tobacco smoke exposure: No Alcohol intake: never Substance use: never Substance use type: does not use Do You Feel Safe in your Home?: Yes Lack of Transportation: No Lack of Food: Never True Current Housing: I Have Housing Concerned About Future Housing: No Difficulty Paying Gas/Electric Bills: No Difficulty Paying for Meds: No Currently Unemployed: No Education: High School Diploma/GED Difficulty w/ Childcare or Family Care: No Living arrangements: [facility] Occupation/Education: retired Gender identity (if verbalized by the patient): Female Spiritual care concerns: No Exam 2 Narrative: APPEARANCE: Well appearing, no pain, no distress, well-nourished. HEAD: normocephalic, atraumatic. EYES: PERRLA/EOMI, conjunctivae clear. NOSE: Normal no drainage EARS:TMS clear with good light reflex. THROAT: Pharynx clear, no exudate. NECK: Supple. No adenopathy, no masses. RESPIRATORY: Airway patent, respirations nonlabored. Clear to auscultation bilaterally, no rales, rhonchi, wheezing. CARDIOVASCULAR: Regular rate and rhythm without murmurs rubs or gallops. ABDOMINAL: Soft, nontender, nondistended, normal bowel sounds MUSCULOSKELETAL: Moves all extremities. Strength/ROM intact, No edema, No calf tenderness. NEURO: Alert. Cranial nerves II through XII intact. Good gait. Good coordination SKIN: Warm, dry. Normal Color Course Vital Signs Vital signs: Vital Signs Temperature 97.9 F 04/25/25 09:00 Pulse Rate 79 04/25/25 09:00 Respiratory Rate 19 04/25/25 09:00 Blood Pressure 163/115 H 04/25/25 09:00 Pulse Oximetry 98 04/25/25 09:00 Oxygen Delivery Room Air 04/25/25 09:00 Temperature 97.9 F 04/25/25 09:00 Pulse Rate 83 04/25/25 13:24 Respiratory Rate 18 04/25/25 13:24 Blood Pressure 148/85 H 04/25/25 13:24 Pulse Oximetry 98 04/25/25 13:24 Oxygen Delivery Room Air 04/25/25 09:00 Medical Decision Making [facility] Narrative Medical decision making narrative: 89-year-old female presenting to the emergency department for evaluation for vertigo. Patient was treated with meclizine states she does feel improved. Patient states she does still have some mild dizziness when she turns to the right. Patient denies any focal numbness or weakness. Patient is currently afebrile with no leukocytosis and hemoglobin of 14.1. Patient has an INR of 0.9. No acute abnormalities on her CMP patient's troponin was negative. Patient's UA was negative for infection. Patient's blood pressure was mildly elevated when she arrived she was treated with a dose of hydralazine but patient's blood pressure has since come down on its own, patient did take her blood pressure medication as scheduled this morning. Patient states she checked her blood patient here 3 times in a row and kept going up and up and I suspect this may have been secondary to anxiety response. Patient's CTA was negative for acute infarct or hemorrhage or mass effect. Patient was able to ambulate at her baseline on re-evaluation. Is being discharged home. Differential Diagnosis Differential Diagnosis: Hypertension, anxiety, vertigo, orthostatic hypotension Vital Signs Vital Signs: Vital Signs Temperature 97.9 F 04/25/25 09:00 Pulse Rate 79 04/25/25 09:00 Respiratory Rate 19 04/25/25 09:00 Blood Pressure 163/115 H 04/25/25 09:00 Pulse Oximetry 98 04/25/25 09:00 Oxygen Delivery Room Air 04/25/25 09:00 Temperature 97.9 F 04/25/25 09:00 Pulse Rate 83 04/25/25 13:24 Respiratory Rate 18 04/25/25 13:24 Blood Pressure 148/85 H 04/25/25 13:24 Pulse Oximetry 98 04/25/25 13:24 Oxygen Delivery Room Air 04/25/25 09:00 Lab Data Lab results reviewed: Yes I reviewed the patient's lab results. 04/25/25 09:17 04/25/25 09:17 Labs: Lab Results 04/25/25 04/25/25 Range/Units 09:17 09:32 WBC 6.1 (4.5-10.0) K/mm3 RBC 4.46 (4.2-5.4) M/mm3 Hgb 14.1 (12.0-15.0) g/dL Hct 43.3 (37.0-47.0) % MCV 97.1 (80-100) fl MCH 31.6 (26-34) pg MCHC 32.6 (32-36) g/dl RDW 13.2 (11.5-14.5) % Plt Count 278 (150-375) k/mm3 MPV 9.7 (7.4-10.4) fl Immature Gran % (Auto) 0.3 (0-0.5) % Neut % (Auto) 65.5 (45.5-73.1) % Lymph % (Auto) 17.3 L (18.3-44.2) % [place] % (Auto) 11.1 H (2.6-8.5) % Eos % (Auto) 4.5 H (0-4.4) % Baso % (Auto) 1.3 H (0.2-1.2) % Lymph # (Auto) 1.05 (0.9-3.2) K/mm3 [place] # (Auto) 0.7 H (0.1-0.6) K/mm3 Eos # (Auto) 0.3 (0-0.3) K/mm3 Baso # (Auto) 0.1 (0.0-0.1) K/mm3 Abs Immat Gran (auto) 0.02 (0.00-0.031) K/mm3 Absolute Neuts (auto) 4.0 (1.3-6.7) K/mm3 Absolute Nucleated RBC 0.000 (0.0-0.012) K/mm3 Nucleated RBC % 0.0 (0.0-0.2) % PT 12.6 (11.1-14.7) Seconds INR 0.9 APTT 27.2 (22.3-36.8) Seconds Sodium 140 (137-145) mmol/L Potassium 4.3 (3.4-5.0) mmol/L Chloride 105 (98-107) mmol/L Carbon Dioxide 26 (22-30) mmol/L Anion Gap 9 (4-12) mmol/L BUN 18 H (7-17) mg/dL Creatinine 0.63 L (0.7-1.0) mg/dL Estim Creat Clear Calc 42 ml/min Estimated GFR > 60 (59 - ) Glucose 110 (65-110) mg/dL Calcium 9.6 (8.4-10.2) mg/dL Total Bilirubin 0.6 (0.2-1.3) mg/dL AST 31 (14-36) U/L ALT 14 (6-35) U/L Alkaline Phosphatase 94 (38-126) U/L Troponin I < 0.012 (0.000-0.034) ng/mL Total Protein 7.5 (6.3-8.2) g/dL Albumin 4.1 (3.5-5.1) g/dL Urine Color Yellow (Yellow) Urine Appearance Clear (Clear) Urine pH 7.5 (5.0-9.0) Ur Specific [place] 1.004 (1.001-1.035) Urine Protein Negative (Negative) mg/dL Urine Glucose (UA) Negative (Negative) mg/dL Urine Ketones Negative (Negative) mg/dL Ur Blood (Man) Negative (Negative) Urine Nitrate Negative (Negative) Urine Bilirubin Negative (Negative) Urine Urobilinogen 0.2 (<2.0) mg/dL Leukocyte Esterase Rfl Trace H (Negative) CHANDLER/UL Urine RBC 0-2 (0-2) /hpf Urine WBC 0-5 (0-3) /hpf Ur Squamous Epith Cells None seen (Few) /hpf Urine Bacteria None seen /hpf Urine Casts 0-2 Imaging Data Radiologist's impression: Impressions Head/Neck CTA 04/25/25 10:30 IMPRESSION: 1. Significant calcified atherosclerotic disease, as detailed above. 2. Percent stenosis per NASCET criteria is 42% on the right and 68% on the left. 3. No acute intracranial hemorrhage or suspicious mass effect. 4. Inflammatory sinus disease. Discharge Plan Discharge Clinical Impression: Vertigo Patient Disposition: NH Fpc/Asst Living Condition: Stable Instructions: Antibiotic Form, Vertigo (ED) Additional Instructions: Meclizine as needed for vertigo control. have close follow-up with your primary care physician. If you have any worsening symptoms then please call or return to the emergency department. Patient Language: Indian Prescriptions: New meclizine 25 mg tablet 25 mg PO BID PRN (Reason: dizziness) 7 Days Qty: 14 0RF No Action diclofenac sodium [Voltaren Arthritis Pain] 1 % Gel 2 g TOPICAL BID PRN (Reason: back pain) Patient Comments: for back pain Rx Instructions: apply to back as needed for pain sennosides-docusate sodium [Senokot-S] 8.6-50 mg Tablet 2 tab PO BID Qty: 60 0RF diltiazem HCl 120 mg capsule,extended release 24hr 120 mg PO Q24H Qty: 30 0RF Rx Instructions: TAKE 1 CAPSULE BY MOUTH EVERY DAY hydrocortisone 1 % cream 1 applic topical TID PRN (Reason: rash) Qty: 28.35 0RF omeprazole 20 mg capsule,delayed release(DR/EC) 20 mg PO DAILY rosuvastatin 5 mg tablet 5 mg PO HS valsartan 40 mg tablet 40 mg PO DAILY aspirin 325 mg Tablet,Delayed Release (Dr/Ec) 81 mg PO BID sulfamethoxazole-trimethoprim 800-160 mg Tablet 1 tab PO Q12HR Qty: 4 0RF valacyclovir [Valtrex] 500 mg tablet 500 mg PO Q12H PRN (Reason: outbreak) 3 Days Qty: 24 1RF ergocalciferol (vitamin D2) 1,250 mcg (50,000 unit) capsule See Rx Instructions .ROUTE .COMPLEX Qty: 3 2RF Dose Instruction: TAKE 1 CAPSULE BY MOUTH ONCE MONTHLY Patient Comments: Last taken 10/06/24 Rx Instructions: TAKE 1 CAPSULE BY MOUTH ONCE MONTHLY atorvastatin 10 mg Tablet 5 mg PO DAILY Qty: 30 0RF Patient Comments: allergic to medication hydrocodone-acetaminophen 5-325 mg Tablet 1 tablet PO QID@0700,1300,1700,2100 Qty: 18 0RF pantoprazole 40 mg Tablet,Delayed Release (Dr/Ec) 40 mg PO QAM Qty: 30 0RF losartan 25 mg Tablet 37.5 mg PO DAILY Qty: 30 0RF Follow-up/Referrals: Angelo,MD Lewis [Primary Care Provider] -
[2025-04-25 09:25] VITALS: BP 179/99; PULSE 75; RESP 20; O2SAT 97
[2025-04-25 09:36] LABS: Alanine Aminotransferase 14 U/L (6-35); Albumin Level 4.1 g/dL (3.5-5.1); Alkaline Phosphatase 94 U/L (38-126); Anion Gap 9 mmol/L (4-12); Aspartate Amino Transferase 31 U/L (14-36); Bilirubin,Total 0.6 mg/dL (0.2-1.3); Blood Urea Nitrogen 18 mg/dL (7-17); Calcium 9.6 mg/dL (8.4-10.2); Carbon Dioxide 26 mmol/L (22-30); Chloride 105 mmol/L (98-107); Estimated CRCL calculation 42 ml/min; Estimated Glomerular Filt Rate > 60; Glucose 110 mg/dL (65-110); Potassium 4.3 mmol/L (3.4-5.0); Sodium 140 mmol/L (137-145); Total Protein 7.5 g/dL (6.3-8.2)
[2025-04-25 09:37] LABS: Hematocrit 43.3 % (37.0-47.0); Hemoglobin 14.1 g/dL (12.0-15.0); INR 0.9; Immature Granulocyte Percent A 0.3 % (0-0.5); Lymphocytes Absolute Auto 1.05 K/mm3 (0.9-3.2); Mean Corpuscular HGB Conc 32.6 g/dl (32-36); Mean Corpuscular Hemoglobin 31.6 pg (26-34); Mean Corpuscular Volume 97.1 fl (80-100); Nucleated Red Blood Cells Absolute Auto 0.000 K/mm3 (0.0-0.012); Nucleated Red Blood Cells Perc 0.0 % (0.0-0.2); Partial Thromboplastin Time 27.2 Seconds (22.3-36.8); Platelet Count Result 278 k/mm3 (150-375); Prothrombin Time 12.6 Seconds (11.1-14.7); Red Blood Count 4.46 M/mm3 (4.2-5.4); White Blood Count 6.1 K/mm3 (4.5-10.0)
[2025-04-25] MEDS: MECLIZINE HCL 25 MG TABLET PO (09:37)
[2025-04-25 09:43] VITALS: BP 179/95; PULSE 76; PULSE 77; RESP 16; O2SAT 99
[2025-04-25 09:44] LABS: Add Urine Microscopic? YES; Appearance Urine Clear (Clear); Glucose Urine UA Negative (Negative); Leukocyte Esterase Ur Trace LEU/UL (Negative); Nitrate Urine Negative (Negative); Non Pathogenic Casts 0-2; Specific Grav Ur 1.004 (1.001-1.035)
[2025-04-25 09:47] LABS: Troponin I < 0.012 ng/mL (0.000-0.034)
[2025-04-25 12:51] VITALS: BP 156/76; PULSE 76; RESP 20; O2SAT 98
[2025-04-25 13:24] VITALS: BP 148/85; PULSE 83; RESP 18; O2SAT 98
== END 2025-04-25 13:26 ==
PROVIDERS: Emergency Provider Emergency Medicine; PCP Hospitalist
DX: R42 Dizziness and giddiness (principal); I11.9 Hypertensive heart disease without heart failure; I25.10 Atherosclerotic heart disease of native coronary artery without angina pectoris
CPT/HCPCS: 36415; 70496; 70498; 80053; 81001; 84484; 85025; 85610; 85730; 93005; 96374; 99284; A9270; J0360; Q9967